=== PATIENT | female | born 1940 | race Caucasian/White ===

== ENCOUNTER 2019-12-10 09:19 | Outpatient (CLI) | payer MEDICARE, OTHER, SELFPAY ==
--- NOTE | 2019-12-10 13:27 | ONC CON_ITS ---
Dr. Sultana New Patient Note Patient: Sae Gambino Unit #: [id number]: 1940 Dicatated By: Wolfgang Sultana M.D.Date of Visit: Dec 10, 2019 Onc MED New Patient/Consult Referring Physician: Dr. LIAT BOLIVAR M.D. Chief Complaint: Breast cancer. 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 This patient has hypertension, hyperlipidemia, GERD, and degenerative arthritis. She has significant anxiety/depression. Her history is also significant for having sustained injuries in a fall about 4 years ago. Since then she has had a great fear of falling again, to the extent that she has remained pretty much sedentary because of it. Somewhere in the range of 4 to 5 months ago she had become aware of a lump in her left breast. Ultrasound of the left breast on 11/11/2019 was BI-RADS 4, suspicious. Findings included a large, irregular, spiculated mass in the upper outer aspect of the left breast measuring 2.6 x 3.4 x 2.7 cm. Nodular densities in the right breast on ultrasound were reported to appear consistent with benign cysts. Core needle biopsy of the mass on 11/20/2019 showed infiltrating ductal carcinoma, probable grade 2. By IHC the tumor cells were noted to be positive for estrogen receptors (90%) and positive for progesterone receptors (80%). By IHC the tumor was negative for overexpression of HER-2/elisabeth (0). She had additional evaluation with chest CT on 11/20/2019, which reportedly showed new mediastinal lymphadenopathy. Further evaluation with PET/CT on 11/28/2019 showed a focus of increased metabolic activity within the medial aspect of the left lobe of the thyroid, maximum SUV 5.1. A focus of increased activity within the lateral aspect of the left breast appeared compatible with the known breast cancer. Small lymph nodes within the mediastinum bilaterally showed activity just above background with maximum SUV 3.5, felt to be consistent with granulomatous disease. Further evaluation with thyroid ultrasound was recommended, but there was no evidence of metastatic breast cancer. She had follow-up with Dr. Bolivar on 12/01/2019 to discuss treatment options. At that time she indicated that she was reluctant to have any further surgery due to fears of undergoing anesthesia. She is seen now in regard to further management of the breast cancer. She complains that she feels exhausted. She has very limited activity, and she is mostly sedentary. Her ECOG score is 3. She had significant weight gain over the past 4 years, though her weight recently has been stable. She has not had fever or hot flashes. She sometimes has sweating associated with activity. She sometimes has sore throat, and she does report having some cough. She says her breathing is not all that good. She has had pain intermittently in the substernal area and she also complains that the area is tender to touch. She has nausea. Her acid reflux is managed adequately with omeprazole. She says her bowels tend to be kind of loose. Bladder function is fine. She has joint pain, she also complains that she has a lot of pain in her neck. She does not complain of headache. She says she has quite a bit of dizziness. She has no numbness/paresthesia or other focal neurologic symptoms. She has been seen by Dr. Deo Douglas in regard to the thyroid findings. Past Medical History: Her medical history includes degenerative arthritis, gastroesophageal reflux disease, hypercholesterolemia, and hypertension. Past Surgical History: Prior surgeries have been limited to bilateral cataract excisions. Medications: 24HR Allergy Relief 1 Tablet (of 180 mg) Oral daily, ALPRAZolam 1 Tablet (of 0.25 mg) Oral daily PRN, Aspirin 1 Tablet (of 325 mg) Oral daily, Atenolol 1 Tablet (of 50 mg) Oral daily, Benazepril HCl 1 Tablet (of 20 mg) Oral daily, Benazepril-hydroCHLOROthiazide 1 Tablet (of 20-25 mg) Oral daily, Glucosamine Sulfate 1 Capsule (of 500 mg) Oral daily, Naproxen 1 Tablet (of 500 mg) Oral daily PRN, Omeprazole 1 Capsule (of 20 mg) Capsule Delayed Release Oral daily, Sertraline HCl 1 Tablet (of 50 mg) Oral daily, Simvastatin 1 Tablet (of 20 mg) Oral daily, Vitamin D Capsule Oral Allergies: ceFAZolin in Sodium Chloride and Valium. Social History: Ms. Gambino is . She had smoked in the past, but not more than 1/2 pack of cigarettes daily. She quit smoking more than 40 years ago. She has had just very rare alcohol use. Family History: Both parents in their 90s, apparently of old age. A sister at age 75. By the patient's description it sounds as though she had acute leukemia. Another sister and 1 brother are still living. There is no history of breast cancer or ovarian cancer in the family. Review Of Symptoms: Constitutional - Her energy is low. She does not do much activity at home. Her appetite is good and her weight is stable. No fever, chills, hot flashes, or night sweats. ECOG score is 3, Eyes - She has had gradual decline in her vision, ENMT - No hearing loss or tinnitus. She has sinus congestion/drainage. No mouth sores. She occasionally has sore throat. No difficulty swallowing, Hematologic/Lymphatic - No abnormal bruising or bleeding, Respiratory - She has shortness of breath. She has a cough. No pleuritic pain or hemoptysis, Cardiovascular - She has pain and tenderness in her chest. No palpitations, Gastrointestinal - She has nausea. No vomiting. She takes omeprazole for acid reflux. No diarrhea or constipation. No blood in the stool or black stools, Genitourinary (F) - No dysuria or hematuria. No urinary frequency. No urgency or incontinence, Musculoskeletal - She has pain in her neck and in her joints, Integumentary - No skin complications, Neurologic - No headache. She gets dizzy quite often. No numbness/paresthesias or other focal neurologic symptoms, Psychiatric - She has a lot of stress and anxiety. She also has depression, but it is being managed with Zoloft. She has trouble getting to sleep at night. Vital Signs: Performed on Dec 10, 2019 10:17: 5, 41.04 (HIGH), 2.01 sq.m, 62.00 in, 97 %, 65 /min, 24 /min, 178/94 mm(hg) (HIGH), 97.7 F (LOW), and 224.4 lbs (HIGH). Physical Examination: Constitutional - She appears to be in reasonably good general health, but she does have limited mobility, Eyes - Sclerae nonicteric. Conjunctivae clear, ENMT - No lesions noted in the oral cavity, Neck - No mass or thyromegaly, Hematologic/Lymphatic - There is a palpable node at the angle of the jaw on the left side, measuring about 1 cm. I do not feel any other cervical or clavicular adenopathy noted, Respiratory - Lungs are clear with good air movement bilaterally, Cardiovascular - Heart rhythm is regular. There is no murmur, gallop, or rub noted. There is no carotid bruit noted, Breasts - The right breast shows no mass. There is an ill-defined area of nodularity in the 2 to 3 o'clock position of the left breast. It measures approximately 2 to 3 cm. There is no axillary adenopathy noted, Abdomen - Soft. Liver and spleen are not enlarged. There is no abdominal mass or ascites noted and there is no inguinal adenopathy, Back/Spine - No spine or CVA tenderness noted, Extremities - No edema. Pedal pulses are palpable bilaterally, Integumentary - No rashes. No suspicious skin lesions noted, Neurologic - No focal neurologic deficits noted. Impression: 1. 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 By clinical evaluation/imaging her disease appears to be stage IB (T2, N0, M0), ER/HI positive and HER-2/elisabeth negative. 2. She underwent core needle biopsy of the left breast on 11/20/2019. 3. She has sedentary lifestyle with very limited activity and ECOG score 3. 4. She had PET/CT evidence of FDG avid left thyroid nodule, currently followed by Dr. Deo Douglas. Her other medical illnesses include: 5. Hypertension. 6. Hyperlipidemia. 7. GERD. 8. Degenerative arthritis. 9. Anxiety/depression. Plan: The findings on the imaging studies and the pathology results were reviewed with the patient and her . We discussed the clinical implications. She has hormone receptor positive infiltrating ductal carcinoma of the left breast. She is aware that the standard treatment would be lumpectomy/radiation or mastectomy, and with either procedure she would also have axillary sentinel lymph node biopsy and adjuvant hormonal therapy. As noted, she is reluctant to undergo any further surgery due to fears of undergoing general anesthesia. Given her age and general medical condition, I think it would be very reasonable to give her the option of having more conservative management for the breast cancer, either with lumpectomy and adjuvant hormonal therapy or with hormonal therapy alone. My preference would be for the former if the lumpectomy procedure can be done under local anesthesia. I will discuss this with Dr. Bolivar. If not, I would be willing to initiate a trial of hormonal therapy with an aromatase inhibitor and just monitor her closely. I reviewed potential side effects with aromatase inhibitor therapy which may include osteoporosis and joint pain, among others. She will need a baseline DEXA scan if that has not been done within the past 2 years, and she will need to be given treatment for bone health as indicated. Signed By: Wolfgang Sultana M.D. <<Signature on File>>
== END 2019-12-10 09:20 | disposition home or self-care (01) ==
LOC: ONCMED 09:31
PROVIDERS: Absent Provider Family Medicine; PCP Family Medicine; Referring Provider Surgery; Visit Provider Internal Medicine Medical Oncology
DX: C50.412 Malignant neoplasm of upper-outer quadrant of left female breast (principal); Z17.0 Estrogen receptor positive status [ER+]; I10 Essential (primary) hypertension; E78.5 Hyperlipidemia, unspecified; K21.9 Gastro-esophageal reflux disease without esophagitis; M19.90 Unspecified osteoarthritis, unspecified site; F41.8 Other specified anxiety disorders; Z79.899 Other long term (current) drug therapy; Z91.81 History of falling; Z87.891 Personal history of nicotine dependence
CPT/HCPCS: 99205

== ENCOUNTER 2020-01-09 07:05 | Outpatient (CLI) | payer MEDICARE, OTHER, SELFPAY ==
[2020-01-09 13:02] LABS: Basophils % 0.3 %; Eosinophils # 0.3 10^3/uL (0.0-0.8); Eosinophils % 4.1 %; Hematocrit 35.6 % (37.0-47.0); Hemoglobin 11.1 g/dL (11.5-15.3); Lymphocytes # 1.3 10^3/uL (0.8-4.8); Lymphocytes % 16.6 %; Mean Corpuscular HGB Conc 31.2 g/dL (30.0-36.0); Mean Corpuscular Hemoglobin 29.4 pg (28.0-34.0); Mean Corpuscular Volume 94.4 fL (81-99); Mean Platelet Volume 11.8 fL (7.4-10.4); Monocytes # 0.6 10^3/uL (0.2-0.9); Neutrophils # 5.6 10^3/uL (1.8-7.7); Neutrophils % 71.1 %; Nucleated Red Blood Cells % 0 %; Platelet Count 292 10^3/cmm (130-400); Red Blood Count 3.77 10^6/uL (4.1-5.3); Red Cell Distribution Width 14.4 % (12.1-15.1); White Blood Count 7.9 10^3/uL (4.0-10.0)
== END 2020-01-09 07:06 | disposition home or self-care (01) ==
LOC: ONCMED 01-12 06:55
PROVIDERS: PCP Family Medicine; Visit Provider Internal Medicine Medical Oncology
DX: C50.412 Malignant neoplasm of upper-outer quadrant of left female breast (principal)
CPT/HCPCS: 85025

== ENCOUNTER 2020-03-16 14:30 | Outpatient (CLI) | payer MEDICARE, OTHER, SELFPAY ==
--- NOTE | 2020-03-16 14:47 | XR_ITS ---
WS: [id number] DEXA (DUAL ENERGY X-RAY ABSORPTIOMETRY) Bone mineral density was performed using a [employer] machine. HISTORY: POSTMENOPAUSAL, BREAST CANCER COMPARISON: None available. Lumbar spine BMD (L1-L4): 1.176 g/cm2 T score: 0.0 Z score: 0.6 Total hip BMD: Left: 0.794 g/cm2. T score: -1.7 Z score: -0.5 Right: 0.814 g/cm2. T score: -1.5 Z score: -0.4 10 year probability of a major osteoporotic fracture is 16%. XR/XR DEXA axial skeleton* [id number] IMPRESSION: OSTEOPENIA based upon the WHO classification for females.
== END 2020-03-16 14:31 | disposition home or self-care (01) ==
LOC: RADWPI 14:36
PROVIDERS: Family Provider Family Medicine; PCP Family Medicine; Visit Provider Internal Medicine Medical Oncology
DX: C50.919 Malignant neoplasm of unspecified site of unspecified female breast (principal); Z78.0 Asymptomatic menopausal state; M85.89 Other specified disorders of bone density and structure, multiple sites
CPT/HCPCS: 77080

== ENCOUNTER 2020-03-17 09:34 | Outpatient (CLI) | payer MEDICARE, OTHER, SELFPAY ==
[2020-03-17 10:55] LABS: Basophils % 0.4 %; Eosinophils # 0.3 10^3/uL (0.0-0.8); Eosinophils % 3.3 %; Hemoglobin 13.8 g/dL (11.5-15.3); Lymphocytes # 1.1 10^3/uL (0.8-4.8); Lymphocytes % 15.1 %; Mean Corpuscular HGB Conc 31.4 g/dL (30.0-36.0); Mean Corpuscular Hemoglobin 28.6 pg (28.0-34.0); Mean Corpuscular Volume 91.3 fL (81-99); Mean Platelet Volume 11.4 fL (7.4-10.4); Monocytes # 0.6 10^3/uL (0.2-0.9); Monocytes % 7.5 %; Neutrophils # 5.5 10^3/uL (1.8-7.7); Neutrophils % 73.3 %; Nucleated Red Blood Cells % 0 %; Platelet Count 254 10^3/cmm (130-400); Red Blood Count 4.82 10^6/uL (4.1-5.3); Red Cell Distribution Width 13.1 % (12.1-15.1); White Blood Count 7.5 10^3/uL (4.0-10.0)
[2020-03-17 11:27] LABS: Alanine Aminotransferase 11 U/L (0-33); Albumin Level 4.4 g/dL (3.5-5.2); Alkaline Phosphatase 74 IU/L (35-105); Anion Gap 15.2 (5-19); Aspartate Amino Transferase 16 U/L (0-32); Blood Urea Nitrogen 10 mg/dL (8-23); Calcium 10.1 mg/dL (8.5-10.5); Carbon Dioxide 29 mmol/L (22-29); Chloride 101 mmol/L (98-107); Globulin 2.6 g/dL (1.3-4.6); Glucose 99 mg/dL (65-115); Osmolality Calculated 288 mOsm/kg (285-295); Potassium 4.2 mmol/L (3.5-5.1); Sodium 141 mmol/L (136-145); Total Bilirubin 0.8 mg/dL (0.15-1.2)
[2020-03-17 13:55] LABS: 25 Hydroxy Vitamin D 29 ng/mL (30-100)
--- NOTE | 2020-03-21 08:59 | ONC FU_ITS ---
Dr. Sultana Patient Follow-Up Note Patient: Sae Gambino Unit #: [id number]: 1940 Dicatated By: Wolfgang Sultana M.D.Date of Visit:Mar 17, 2020 Onc Med Follow-up/Prog Note Chief Complaint: Breast cancer. History of Present Illness: This is an 80 year-old woman with grade 2 infiltrating ductal carcinoma of the left breast, by clinical evaluation stage IB (T2, N0, M0), ER/IL positive and HER-2/elisabeth negative. She had presented with a palpable lump in her left breast. Ultrasound of the left breast on 11/11/2019 was BI-RADS 4, suspicious. Findings included a large, irregular, spiculated mass in the upper outer aspect of the left breast measuring 2.6 x 3.4 x 2.7 cm. Nodular densities in the right breast on ultrasound were reported to appear consistent with benign cysts. Core needle biopsy of the mass on 11/20/2019 showed infiltrating ductal carcinoma, probable grade 2. By IHC the tumor cells were noted to be positive for estrogen receptors (90%) and positive for progesterone receptors (80%). By IHC the tumor was negative for overexpression of HER-2/elisabeth (0). She had additional evaluation with chest CT on 11/20/2019, which reportedly showed new mediastinal lymphadenopathy. Further evaluation with PET/CT on 11/28/2019 showed a focus of increased metabolic activity within the medial aspect of the left lobe of the thyroid, maximum SUV 5.1. A focus of increased activity within the lateral aspect of the left breast appeared compatible with the known breast cancer. Small lymph nodes within the mediastinum bilaterally showed activity just above background with maximum SUV 3.5, felt to be consistent with granulomatous disease. Further evaluation with thyroid ultrasound was recommended, but there was no evidence of metastatic breast cancer. She had follow-up with Dr. Bolivar on 12/01/2019 to discuss treatment options. At that time she indicated that she was reluctant to have any further surgery due to fears of undergoing anesthesia. I had seen her initially on 12/10/2019. After further discussion, she did opt to proceed with a lumpectomy procedure. It was done on 01/02/2020. Pathology showed residual grade 1 invasive ductal carcinoma measuring 3.0 cm in greatest dimension. The margins were uninvolved, with the closest margin measuring 0.6 cm. She had tolerated the procedure well, but her postoperative course was complicated by apparent hemorrhage within the breast. She began adjuvant hormonal therapy with anastrozole 1 mg daily on 01/09/2020. Baseline DEXA scan on 03/16/2020 showed T score -1.7 in the left hip and -1.5 in the right hip, consistent with osteopenia. Her other medical illnesses include hypertension, hyperlipidemia, GERD, and degenerative arthritis. She has significant anxiety/depression. Her history is also significant for having sustained injuries in a fall about 4 years ago. She had smoked in the past, but not more than 1/2 pack of cigarettes daily. She quit smoking more than 40 years ago. She is seen for a follow-up visit. Her main complaint is that she still has a knot in her left breast, and she says it still hurts a lot. Her energy is not good. She has very limited activity, but that is not new. ECOG score is 3. She has good appetite. She has not had fever. She says she does sweat a lot with activity and she sometimes has sweating at night. She says she gets real short of breath. She has nonproductive cough, which also is not new. She does not complain of chest pain. She sometimes has heartburn. She has no other GI or complaints. She says her joints are awful, but that also is chronic. It does not seem to be any worse. She has some tingling in her left hand. She says her nerves are terrible. Medications: 24HR Allergy Relief 1 Tablet (of 180 mg) Oral daily, ALPRAZolam 1 Tablet (of 0.25 mg) Oral daily PRN, Anastrozole 1 Tablet (of 1 mg) Oral daily, Aspirin 1 Tablet (of 325 mg) Oral daily, Atenolol 1 Tablet (of 50 mg) Oral daily, Benazepril HCl 1 Tablet (of 20 mg) Oral daily, Benazepril-hydroCHLOROthiazide 1 Tablet (of 20-25 mg) Oral daily, Glucosamine Sulfate 1 Capsule (of 500 mg) Oral daily, Naproxen 1 Tablet (of 500 mg) Oral daily PRN, Omeprazole 1 Capsule (of 20 mg) Capsule Delayed Release Oral daily, Sertraline HCl 1 Tablet (of 50 mg) Oral daily, Simvastatin 1 Tablet (of 20 mg) Oral daily, Vitamin D Capsule Oral Allergies: ceFAZolin in Sodium Chloride and Valium. Review of Systems: Constitutional - She generally feels pretty lousy. Her energy level is non-exsistant. She is mainly in her chair at home. She is not able to do any physicial activity. Her appetite is good and weight is up a few pounds. No fever. She is having persistant hot flashes with sweating. ECOG score is 3, ENMT - No sinus congestion/drainage. No mouth sores. No sore throat or difficulty swallowing, Hematologic/Lymphatic - No abnormal bruising or bleeding, Respiratory - No shortness of breath. She has a cough. No pleuritic pain or hemoptysis, Cardiovascular - No angina pain. No palpitations, Gastrointestinal - No nausea or vomiting. Her heartburn is adequately managed with Prilosec. No diarrhea or constipation. No blood in the stool or black stools, Genitourinary (F) - No dysuria or hematuria. No urinary frequency. No urgency or incontinence, Musculoskeletal - She has pain from her mastectomy. She also has generalized joint pain, Integumentary - No skin complications, Neurologic - No headache. She sometimes has dizziness. She has some tinglingin her left hand. She has no other focal neurologic symptoms, Psychiatric - She has anxiety/depression. She is not sleeping well at night. Vital Signs: Performed on Mar 17, 2020 09:58 Height - 62.00 in Weight - 228.6 lbs (HIGH) BSA - 2.02 sq.m BMI - 41.81 (HIGH) Temperature - 97.6 F (LOW) Pulse - 63 /min Respiration - 26 /min BP - 158/76 mm(hg) (HIGH) O2 Sat - 95 % (LOW) Pain - 5 Physical Examination: Constitutional - She does not appear acutely ill. She has limited mobility. She has mild alopecia, Eyes - Sclerae nonicteric. Conjunctivae clear, ENMT - No lesions noted in the oral cavity, Hematologic/Lymphatic - No cervical or clavicular adenopathy, Respiratory - Lungs are clear with good air movement bilaterally, Cardiovascular - Heart rhythm is regular. There is no murmur, gallop, or rub noted, Breasts - There is a large area of firmness involving the upper outer left breast. There is discoloration of the overlying skin. There is no axillary adenopathy noted, Abdomen - Soft. Liver and spleen are not enlarged. There is no abdominal mass or ascites noted and there is no inguinal adenopathy, Extremities - No edema, Neurologic - No focal neurologic deficits noted. Lab/Imaging: Test performed on Mar 17, 2020 10:35 Sodium 141 mmol/L Vitamin D (25-Hydroxy), Total 29 ng/mL Potassium 4.2 mmol/L Chloride 101 mmol/L CO2 29 mmol/L Anion Gap 15.2 BUN 10 mg/dL Creatinine 0.6 mg/dL Cr Clearance (Est) 122.4200 mL/min Glucose 99 mg/dL Calcium 10.1 mg/dL Protein, Total 7.0 g/dL Albumin 4.4 g/dL Globulin 2.6 g/dL Bilirubin, Total 0.8 mg/dL ALT (SGPT) 11 U/L AST (SGOT) 16 U/L Alkaline Phosphatase 74 IU/L WBC 7.5 10 3/uL RBC 4.82 10 6/uL HGB 13.8 g/dL HCT 44.0 % MCV 91.3 fL MCH 28.6 pg MCHC 31.4 g/dL RDW 13.1 % Platelet Count 254 10 3/cmm MPV 11.4 fL Neutrophils 5.5 10 3/uL Lymphocytes 1.1 10 3/uL Monocytes 0.6 10 3/uL Eosinophils 0.3 10 3/uL Basophils 0.0 10 3/uL Neutrophil % 73.3 % Lymphocyte % 15.1 % Monocyte % 7.5 % Eosinophil % 3.3 % Basophils % 0.4 % Impression: 1. 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 Her disease is stage IB (T2, N0, M0) by clinical evaluation of the axilla. 2. She underwent core needle biopsy of the left breast on 11/20/2019, and she underwent left breast lumpectomy on 01/02/2020. 3. She began adjuvant hormonal therapy with anastrozole 1 mg daily on 01/09/2020. 4. She had PET/CT evidence of FDG avid left thyroid nodule, followed by Dr. Deo Christiansen. Her other medical illnesses include: 5. Hypertension. 6. Hyperlipidemia. 7. GERD. 8. Degenerative arthritis. 9. Anxiety/depression. 10. Her baseline Dexa scan on 03/16/2020 showed osteopenia, T score -1.7 in the left hip and -1.5 in the right hip. She has been undergoing adjuvant hormonal therapy with anastrozole 1 mg daily. She seems to be tolerating it with acceptable toxicity, though evaluation is somewhat difficult as at baseline she had very marginal performance status and she also has had longstanding generalized joint pain. At this point she is still having significant discomfort in the left breast associated with what appears to be postoperative hematoma within the breast. None of her other symptoms appear to be significantly worse. Plan: She will continue adjuvant hormonal therapy with anastrozole 1 mg daily. I had a discussion with her regarding the results of the DEXA scan, which does show evidence of osteopenia. Options for therapy would include a weekly oral bisphosphonate or Prolia, which is given by subcutaneous injection every 6 months. At least for now she prefers to just monitor it. I will see her again in 6 months, or sooner as needed. Signed By: Wolfgang Sultana M.D. <<Signature on File>>
== END 2020-03-17 09:35 | disposition home or self-care (01) ==
PROVIDERS: PCP Family Medicine; Visit Provider Internal Medicine Medical Oncology
DX: C50.412 Malignant neoplasm of upper-outer quadrant of left female breast (principal); Z17.0 Estrogen receptor positive status [ER+]; K21.9 Gastro-esophageal reflux disease without esophagitis; E78.00 Pure hypercholesterolemia, unspecified; I10 Essential (primary) hypertension; E78.5 Hyperlipidemia, unspecified; F41.9 Anxiety disorder, unspecified; F32.9 Major depressive disorder, single episode, unspecified; M81.0 Age-related osteoporosis without current pathological fracture; E55.9 Vitamin D deficiency, unspecified; Z79.818 Long term (current) use of other agents affecting estrogen receptors and estrogen levels
CPT/HCPCS: 36415; 80053; 82306; 85025; 99214

== ENCOUNTER 2020-09-16 11:53 | Outpatient (CLI) | payer MEDICARE, OTHER, SELFPAY ==
[2020-09-16 13:05] LABS: Basophils % 0.4 %; Eosinophils # 0.2 10^3/uL (0.0-0.8); Eosinophils % 2.7 %; Hematocrit 42.3 % (37.0-47.0); Hemoglobin 13.7 g/dL (11.5-15.3); Lymphocytes # 1.5 10^3/uL (0.8-4.8); Lymphocytes % 18.2 %; Mean Corpuscular HGB Conc 32.4 g/dL (30.0-36.0); Mean Corpuscular Hemoglobin 28.3 pg (28.0-34.0); Mean Corpuscular Volume 87.4 fL (81-99); Mean Platelet Volume 11.4 fL (7.4-10.4); Monocytes # 0.5 10^3/uL (0.2-0.9); Neutrophils # 5.95 10^3/uL (1.8-7.7); Neutrophils % 72.2 %; Nucleated Red Blood Cells % 0 %; Platelet Count 257 10^3/cmm (130-400); Red Blood Count 4.84 10^6/uL (4.1-5.3); Red Cell Distribution Width 13.3 % (12.1-15.1); White Blood Count 8.2 10^3/uL (4.0-10.0)
[2020-09-16 13:42] LABS: 25 Hydroxy Vitamin D 35 ng/mL (30-100); Alanine Aminotransferase 19 U/L (0-33); Albumin Level 4.2 g/dL (3.5-5.2); Alkaline Phosphatase 81 IU/L (35-105); Anion Gap 15.9 (5-19); Aspartate Amino Transferase 22 U/L (0-32); Blood Urea Nitrogen 11 mg/dL (8-23); Calcium 9.4 mg/dL (8.5-10.5); Carbon Dioxide 29 mmol/L (22-29); Chloride 97 mmol/L (98-107); Globulin 2.6 g/dL (1.3-4.6); Glucose 98 mg/dL (65-115); Osmolality Calculated 285 mOsm/kg (285-295); Potassium 3.9 mmol/L (3.5-5.1); Sodium 138 mmol/L (136-145); Total Protein 6.8 g/dL (6.6-8.7)
--- NOTE | 2020-09-19 16:04 | ONC FU_ITS ---
Dr. Sultana Patient Follow-Up Note Patient: Sae Gambino Unit #: [id number]: 1940 Dicatated By: Wolfgang Sultana M.D.Date of Visit:Sep 16, 2020 Onc Med Follow-up/Prog Note Chief Complaint: Breast cancer. 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 She had presented with a palpable lump in her left breast. Ultrasound of the left breast on 11/11/2019 was BI-RADS 4, suspicious. Findings included a large, irregular, spiculated mass in the upper outer aspect of the left breast measuring 2.6 x 3.4 x 2.7 cm. Nodular densities in the right breast on ultrasound were reported to appear consistent with benign cysts. Core needle biopsy of the mass on 11/20/2019 showed infiltrating ductal carcinoma, probable grade 2. By IHC the tumor cells were noted to be positive for estrogen receptors (90%) and positive for progesterone receptors (80%). By IHC the tumor was negative for overexpression of HER-2/elisabeth (0). She had additional evaluation with chest CT on 11/20/2019, which reportedly showed new mediastinal lymphadenopathy. Further evaluation with PET/CT on 11/28/2019 showed a focus of increased metabolic activity within the medial aspect of the left lobe of the thyroid, maximum SUV 5.1. A focus of increased activity within the lateral aspect of the left breast appeared compatible with the known breast cancer. Small lymph nodes within the mediastinum bilaterally showed activity just above background with maximum SUV 3.5, felt to be consistent with granulomatous disease. Further evaluation with thyroid ultrasound was recommended, but there was no evidence of metastatic breast cancer. She had follow-up with Dr. Bolivar on 12/01/2019 to discuss treatment options. At that time she indicated that she was reluctant to have any further surgery due to fears of undergoing anesthesia. I had seen her initially on 12/10/2019. After further discussion, she did opt to proceed with a lumpectomy procedure. It was done on 01/02/2020. Pathology showed residual grade 1 invasive ductal carcinoma measuring 3.0 cm in greatest dimension. The margins were uninvolved, with the closest margin measuring 0.6 cm. She had tolerated the procedure well, but her postoperative course was complicated by apparent hemorrhage within the breast. She began adjuvant hormonal therapy with anastrozole 1 mg daily on 01/09/2020. Baseline DEXA scan on 03/16/2020 showed T score -1.7 in the left hip and -1.5 in the right hip, consistent with osteopenia. She opted not to take treatment for it. Her other medical illnesses include hypertension, hyperlipidemia, GERD, and degenerative arthritis. She has significant anxiety/depression. Her history is also significant for having sustained injuries in a fall about 4 years ago. She had smoked in the past, but not more than 1/2 pack of cigarettes daily. She quit smoking more than 40 years ago. She is seen for a follow-up visit. She has been feeling pretty good generally. She does complain that her energy is not good, and she has very limited activity. ECOG score is 3. She has good appetite. She has not had fever or night sweats. She does exhausted and she has sweating with any activity. Her breathing is not too good, but no worse. She has nonproductive cough, which is chronic. She says she has not had any more chest pain then usual. She has nausea with occasional vomiting, that also has been going on for a long time. Her acid reflux is managed pretty well with omeprazole. Bowel and bladder function have been adequate. She has joint pain, but it actually has improved somewhat and she is currently doing pretty well with it. She has no focal neurologic symptoms. Medications: 24HR Allergy Relief 1 Tablet (of 180 mg) Oral daily, ALPRAZolam 1 Tablet (of 0.25 mg) Oral daily PRN, Anastrozole 1 Tablet (of 1 mg) Oral daily, Aspirin 1 Tablet (of 325 mg) Oral daily, Atenolol 1 Tablet (of 50 mg) Oral daily, Benazepril HCl 1 Tablet (of 20 mg) Oral daily, Benazepril-hydroCHLOROthiazide 1 Tablet (of 20-25 mg) Oral daily, Glucosamine Sulfate 1 Capsule (of 500 mg) Oral daily, Naproxen 1 Tablet (of 500 mg) Oral daily PRN, Omeprazole 1 Capsule (of 20 mg) Capsule Delayed Release Oral daily, Sertraline HCl 1 Tablet (of 50 mg) Oral daily, Simvastatin 1 Tablet (of 20 mg) Oral daily, Vitamin D Capsule Oral Allergies: ceFAZolin in Sodium Chloride and Valium. Review of Systems: Constitutional - Her energy is not good, and she has very limited activity. She has good appetite. She has not had fever. She gets exhausted and she sweats with any activity. ECOG score is 3, ENMT - She has sinus drainage. No mouth sores. She has sore throat, but no difficulty swallowing, Hematologic/Lymphatic - No abnormal bruising or bleeding, Respiratory - Her breathing is not too good. She has nonproductive cough. No pleuritic pain or hemoptysis, Cardiovascular - She says she does not have any more chest pain than usual. No palpitations, Gastrointestinal - She has nausea with occasional vomiting. Her acid reflux is pretty well managed with omeprazole. No diarrhea or constipation. No blood in the stool or black stools, Genitourinary (F) - No dysuria or hematuria. No urinary frequency. No urgency or incontinence, Musculoskeletal - She has joint pain, and actually has improved somewhat, Integumentary - No skin rash, Neurologic - No headache or dizziness. No numbness or tingling. No other focal neurologic symptoms, Psychiatric - She has anxiety/depression. She is on treatment with sertraline. She does not sleep well at night. Vital Signs: Performed on Sep 16, 2020 14:14 Height - 62.00 in Weight - 232.6 lbs (HIGH) BSA - 2.04 sq.m BMI - 42.54 (HIGH) Temperature - 98.2 F (LOW) Pulse - 67 /min Respiration - 24 /min BP - 158/88 mm(hg) (HIGH) O2 Sat - 93 % (LOW) Pain - 0 Physical Examination: Constitutional - She appears somewhat weak generally. She has limited mobility, Eyes - Sclerae nonicteric. Conjunctivae clear, ENMT - No lesions noted in the oral cavity, Hematologic/Lymphatic - No cervical or clavicular adenopathy, Respiratory - Lungs are clear with good air movement bilaterally, Cardiovascular - Heart rhythm is regular. There is no murmur, gallop, or rub noted, Breasts - The area of firmness in the upper outer quadrant left breast is smaller. There is no axillary adenopathy noted, Abdomen - Soft. Liver and spleen are not enlarged. There is no abdominal mass or ascites noted and there is no inguinal adenopathy, Extremities - No edema, Neurologic - No focal neurologic deficits noted. Lab/Imaging: Test performed on Sep 16, 2020 12:07 Sodium 138 mmol/L Vitamin D (25-Hydroxy), Total 35 ng/mL Potassium 3.9 mmol/L Chloride 97 mmol/L CO2 29 mmol/L Anion Gap 15.9 BUN 11 mg/dL Creatinine 0.6 mg/dL Cr Clearance (Est) 124.56 mL/min Glucose 98 mg/dL Osmolality - Calculated 285 mOsm/kg Calcium 9.4 mg/dL Protein, Total 6.8 g/dL Albumin 4.2 g/dL Globulin 2.6 g/dL Bilirubin, Total 1.0 mg/dL ALT (SGPT) 19 U/L AST (SGOT) 22 U/L Alkaline Phosphatase 81 IU/L WBC 8.2 10 3/uL RBC 4.84 10 6/uL HGB 13.7 g/dL HCT 42.3 % MCV 87.4 fL MCH 28.3 pg MCHC 32.4 g/dL RDW 13.3 % Platelet Count 257 10 3/cmm MPV 11.4 fL Neutrophils 5.95 10 3/uL Lymphocytes 1.5 10 3/uL Monocytes 0.5 10 3/uL Eosinophils 0.2 10 3/uL Basophils 0.0 10 3/uL Neutrophil % 72.2 % Lymphocyte % 18.2 % Monocyte % 6.0 % Eosinophil % 2.7 % Basophils % 0.4 % NRBC % 0 % Impression: 1. 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 Her disease is stage IB (T2, N0, M0) by clinical evaluation of the axilla. 2. She underwent core needle biopsy of the left breast on 11/20/2019, and she underwent left breast lumpectomy on 01/02/2020. 3. She began adjuvant hormonal therapy with anastrozole 1 mg daily on 01/09/2020. 4. She had PET/CT evidence of FDG avid left thyroid nodule, followed by Dr. Deo Christiansen. Her other medical illnesses include: 5. Hypertension. 6. Hyperlipidemia. 7. GERD. 8. Degenerative arthritis. 9. Anxiety/depression. 10. Her baseline Dexa scan on 03/16/2020 showed osteopenia, T score -1.7 in the left hip and -1.5 in the right hip. She declined treatment for it. She has been undergoing adjuvant hormonal therapy with anastrozole 1 mg daily. Thus far she seems to be tolerating it well. Her overall clinical status appears stable. Plan: She continues adjuvant hormonal therapy with anastrozole 1 mg daily. I will see her again in 6 months. Signed By: Wolfgang Sultana M.D. <<Signature on File>>
== END 2020-09-16 11:54 | disposition home or self-care (01) ==
LOC: ONCMED 11:58
PROVIDERS: Visit Provider Internal Medicine Medical Oncology
DX: C50.812 Malignant neoplasm of overlapping sites of left female breast (principal); Z17.0 Estrogen receptor positive status [ER+]; I10 Essential (primary) hypertension; E78.5 Hyperlipidemia, unspecified; K21.9 Gastro-esophageal reflux disease without esophagitis; M19.90 Unspecified osteoarthritis, unspecified site; F41.9 Anxiety disorder, unspecified; F32.9 Major depressive disorder, single episode, unspecified; E55.9 Vitamin D deficiency, unspecified; Z78.0 Asymptomatic menopausal state; Z79.818 Long term (current) use of other agents affecting estrogen receptors and estrogen levels
CPT/HCPCS: 36415; 80053; 82306; 85025; 99214

== ENCOUNTER 2020-09-29 10:25 | Outpatient (CLI) | payer MEDICARE, OTHER, SELFPAY ==
--- NOTE | 2020-09-29 10:32 | XR_ITS ---
WS: [id number] Right knee, 3 views, 09/29/2020 Clinical Data: ACUTE PAIN OF RIGHT KNEE Comparison: None. Findings: No fractures or dislocations are seen. There is medial joint compartment narrowing. There is an anter ior superior and a smaller posterior superior patellar spur. There is no bone destruction or erosion. The soft tissues are normal. XR/XR knee RT 3V* [id number] Impression: 1. Medial joint compartment narrowing. 2. Minimal osteoarthritis of the right patella.
== END 2020-09-29 10:26 | disposition home or self-care (01) ==
LOC: RADWPI 10:29
DX: M17.11 Unilateral primary osteoarthritis, right knee (principal)
CPT/HCPCS: 73562

== ENCOUNTER 2021-01-04 08:06 | Outpatient (CLI) | payer MEDICARE, OTHER, SELFPAY ==
--- NOTE | 2021-01-04 08:13 | MM_ITS ---
WS: [id number] DIAGNOSTIC BILATERAL DIGITAL MAMMOGRAM WITH CAD HISTORY: HX OF BREAST CA - LT COMPARISON: 08/04/2020, 11/20/2019, 11/11/2019 and 03/30/2014 TECHNIQUE: Bilateral craniocaudad, mediolateral oblique, and mediolateral views are submitted. Spot c ompression bilateral CC and LEFT MLO. Computer aided detection utilized. Breast composition: There are scattered areas of fibroglandular density. Postsurgical changes are not ed in the upper-outer quadrant of the LEFT breast. Postoperative area of increased density at the zeeshan gical site has decreased slightly in size as compared to 08/04/2020 as expected for postoperative sit e. No new calcifications or distortion. There is overlying skin thickening. Several masses within the RIGHT breast are stable since 11/11/2019. Ultrasound performed of the RIGHT breast on 11/11/2019 demon strated cysts and complex cysts. MM/[place] [id number] IMPRESSION: BI-RADS: 2-Benign FOLLOW UP: 1 Year Follow-up
== END 2021-01-04 08:07 | disposition home or self-care (01) ==
PROVIDERS: Visit Provider Internal Medicine Medical Oncology
DX: Z85.3 Personal history of malignant neoplasm of breast (principal)
CPT/HCPCS: 77066

== ENCOUNTER 2021-04-06 08:27 | Outpatient (CLI) | payer MEDICARE, OTHER, SELFPAY ==
[2021-04-06 09:00] LABS: Basophils % 0.6 %; Eosinophils # 0.3 10^3/uL (0.0-0.8); Eosinophils % 3.8 %; Hematocrit 42.1 % (37.0-47.0); Hemoglobin 13.6 g/dL (11.5-15.3); Lymphocytes # 1.3 10^3/uL (0.8-4.8); Mean Corpuscular HGB Conc 32.3 g/dL (30.0-36.0); Mean Corpuscular Hemoglobin 28.8 pg (28.0-34.0); Mean Corpuscular Volume 89.2 fL (81-99); Mean Platelet Volume 11.4 fL (7.4-10.4); Monocytes # 0.5 10^3/uL (0.2-0.9); Monocytes % 7.2 %; Neutrophils # 4.79 10^3/uL (1.8-7.7); Neutrophils % 69.1 %; Nucleated Red Blood Cells % 0 %; Platelet Count 210 10^3/cmm (130-400); Red Blood Count 4.72 10^6/uL (4.1-5.3); Red Cell Distribution Width 13.4 % (12.1-15.1); White Blood Count 6.9 10^3/uL (4.0-10.0)
[2021-04-06 09:23] LABS: Alanine Aminotransferase 13 U/L (0-33); Albumin Level 3.9 g/dL (3.5-5.2); Alkaline Phosphatase 82 IU/L (35-105); Anion Gap 12.9 (5-19); Aspartate Amino Transferase 18 U/L (0-32); Blood Urea Nitrogen 12 mg/dL (8-23); Calcium 8.9 mg/dL (8.5-10.5); Carbon Dioxide 30 mmol/L (22-29); Chloride 102 mmol/L (98-107); Globulin 2.6 g/dL (1.3-4.6); Glucose 105 mg/dL (65-115); Osmolality Calculated 292 mOsm/kg (285-295); Potassium 3.9 mmol/L (3.5-5.1); Sodium 141 mmol/L (136-145); Total Bilirubin 0.8 mg/dL (0.15-1.2); Total Protein 6.5 g/dL (6.6-8.7)
[2021-04-06 09:35] LABS: 25 Hydroxy Vitamin D 36 ng/mL (30-100)
--- NOTE | 2021-04-10 08:12 | ONC FU_ITS ---
Dr. Sultana Patient Follow-Up Note Patient: Sae Gambino Unit #: [id number]: [id number] Dicatated By: Wolfgang Sultana M.D.Date of Visit:Apr 06, 2021 Onc Med Follow-up/Prog Note Chief Complaint: Breast cancer. History of Present Illness: This is an 81 year-old woman with grade 2 infiltrating ductal carcinoma of the left breast, by clinical evaluation stage IB (T2, N0, M0), ER/NM positive and HER-2/elisabeth negative. She had presented with a palpable lump in her left breast. Ultrasound of the left breast on 11/11/2019 was BI-RADS 4, suspicious. Findings included a large, irregular, spiculated mass in the upper outer aspect of the left breast measuring 2.6 x 3.4 x 2.7 cm. Nodular densities in the right breast on ultrasound were reported to appear consistent with benign cysts. Core needle biopsy of the mass on 11/20/2019 showed infiltrating ductal carcinoma, probable grade 2. By IHC the tumor cells were noted to be positive for estrogen receptors (90%) and positive for progesterone receptors (80%). By IHC the tumor was negative for overexpression of HER-2/elisabeth (0). She had additional evaluation with chest CT on 11/20/2019, which reportedly showed new mediastinal lymphadenopathy. Further evaluation with PET/CT on 11/28/2019 showed a focus of increased metabolic activity within the medial aspect of the left lobe of the thyroid, maximum SUV 5.1. A focus of increased activity within the lateral aspect of the left breast appeared compatible with the known breast cancer. Small lymph nodes within the mediastinum bilaterally showed activity just above background with maximum SUV 3.5, felt to be consistent with granulomatous disease. Further evaluation with thyroid ultrasound was recommended, but there was no evidence of metastatic breast cancer. She had follow-up with Dr. Bolivar on 12/01/2019 to discuss treatment options. At that time she indicated that she was reluctant to have any further surgery due to fears of undergoing anesthesia. I had seen her initially on 12/10/2019. After further discussion, she did opt to proceed with a lumpectomy procedure. It was done on 01/02/2020. Pathology showed residual grade 1 invasive ductal carcinoma measuring 3.0 cm in greatest dimension. The margins were uninvolved, with the closest margin measuring 0.6 cm. She had tolerated the procedure well, but her postoperative course was complicated by apparent hemorrhage within the breast. She began adjuvant hormonal therapy with anastrozole 1 mg daily on 01/09/2020. Baseline DEXA scan on 03/16/2020 showed T score -1.7 in the left hip and -1.5 in the right hip, consistent with osteopenia. She opted not to take treatment for it. Her other medical illnesses include hypertension, hyperlipidemia, GERD, and degenerative arthritis. She has significant anxiety/depression. Her history is also significant for having sustained injuries in a fall about 4 years ago. She had smoked in the past, but not more than 1/2 pack of cigarettes daily. She quit smoking more than 40 years ago. She is seen for a follow-up visit. She has been feeling okay, though she says her energy is 0 to nothing. Her activity remains very limited. ECOG score is 2. She has good appetite. She has not had fever. She does have sweating, especially at night. She has noticed some aching in the area of the lumpectomy in the left breast. She has sinus drainage. She has cough, but she says that has been going on for years. Her breathing is not that great. She sometimes has soreness in the sternal area. She also has some acid reflux. She has not been having nausea. Bowel and bladder function remain adequate. She has chronic pain, mainly in the lower extremities. She does not complain of headache. She has occasional orthostatic dizziness. She has no numbness/paresthesia or other focal neurologic symptoms. Medications: 24HR Allergy Relief 1 Tablet (of 180 mg) Oral daily, ALPRAZolam 1 Tablet (of 0.25 mg) Oral daily PRN, Anastrozole 1 Tablet (of 1 mg) Oral daily, Aspirin 1 Tablet (of 325 mg) Oral daily, Atenolol 1 Tablet (of 50 mg) Oral daily, Benazepril HCl 1 Tablet (of 20 mg) Oral daily, Benazepril-hydroCHLOROthiazide 1 Tablet (of 20-25 mg) Oral daily, Glucosamine Sulfate 1 Capsule (of 500 mg) Oral daily, Naproxen 1 Tablet (of 500 mg) Oral daily PRN, Omeprazole 1 Capsule (of 20 mg) Capsule Delayed Release Oral daily, Sertraline HCl 1 Tablet (of 50 mg) Oral daily, Simvastatin 1 Tablet (of 20 mg) Oral daily, Vitamin D Capsule Oral Allergies: ceFAZolin in Sodium Chloride and Valium. Vital Signs: Performed on Apr 06, 2021 11:23 Height - 62.00 in Weight - 226.6 lbs (LOW) BSA - 2.02 sq.m BMI - 41.45 (HIGH) Temperature - 98.4 F Pulse - 76 /min Respiration - 18 /min BP - 174/80 mm(hg) (HIGH) O2 Sat - 93 % (LOW) Pain - 0 Fatigue - 9 Physical Examination: Constitutional - She appears somewhat weak generally, Eyes - Sclerae nonicteric. Conjunctivae clear, ENMT - No lesions noted in the oral cavity, Hematologic/Lymphatic - No cervical or clavicular adenopathy, Respiratory - Lungs are clear with good air movement bilaterally, Cardiovascular - Heart rhythm is regular. There is no murmur, gallop, or rub noted, Breasts - There is no palpable breast mass. There is no axillary adenopathy noted, Abdomen - Soft. Liver and spleen are not enlarged. There is no abdominal mass or ascites noted and there is no inguinal adenopathy, Extremities - No edema, Neurologic - No focal neurologic deficits noted. Lab/Imaging: Test performed on Apr 06, 2021 08:40 Sodium 141 mmol/L Vitamin D (25-Hydroxy), Total 36 ng/mL Potassium 3.9 mmol/L Chloride 102 mmol/L CO2 30 mmol/L Anion Gap 12.9 BUN 12 mg/dL Creatinine 0.4 mg/dL Cr Clearance (Est) 178.98 mL/min Glucose 105 mg/dL Osmolality - Calculated 292 mOsm/kg Calcium 8.9 mg/dL Protein, Total 6.5 g/dL Albumin 3.9 g/dL Globulin 2.6 g/dL Bilirubin, Total 0.8 mg/dL ALT (SGPT) 13 U/L AST (SGOT) 18 U/L Alkaline Phosphatase 82 IU/L WBC 6.9 10 3/uL RBC 4.72 10 6/uL HGB 13.6 g/dL HCT 42.1 % MCV 89.2 fL MCH 28.8 pg MCHC 32.3 g/dL RDW 13.4 % Platelet Count 210 10 3/cmm MPV 11.4 fL Neutrophils 4.79 10 3/uL Lymphocytes 1.3 10 3/uL Monocytes 0.5 10 3/uL Eosinophils 0.3 10 3/uL Basophils 0.0 10 3/uL Neutrophil % 69.1 % Lymphocyte % 19.0 % Monocyte % 7.2 % Eosinophil % 3.8 % Basophils % 0.6 % NRBC % 0 % Problem List: 1. Grade 2 infiltrating ductal carcinoma of the left breast, ER/NM positive and HER-2/elisabeth negative. Her disease is stage IB (T2, N0, M0) by clinical evaluation of the axilla. 2. She had PET/CT evidence of FDG avid left thyroid nodule, followed by Dr. Deo Christiansen. 3. Hypertension. 4. Hyperlipidemia. 5. GERD. 6. Degenerative arthritis. 7. Anxiety/depression. 8. Her baseline Dexa scan on 03/16/2020 showed osteopenia, T score -1.7 in the left hip and -1.5 in the right hip. She declined treatment for it. 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 Her disease is stage IB (T2, N0, M0) by clinical evaluation of the axilla. She underwent core needle biopsy of the left breast on 11/20/2019, and she underwent left breast lumpectomy on 01/02/2020. She began adjuvant hormonal therapy with anastrozole 1 mg daily on 01/09/2020. During follow-up she has been tolerating the anastrozole with no significant adverse effects. Her overall clinical status remains stable, thus far with no evidence of recurrence of the breast cancer. She continues adjuvant hormonal therapy with anastrozole 1 mg daily. I will see her again in 6 months. Signed By: Wolfgang Sultana M.D. <<Signature on File>>
== END 2021-04-06 08:28 | disposition home or self-care (01) ==
LOC: ONCMED 08:30
PROVIDERS: Visit Provider Internal Medicine Medical Oncology
DX: C50.812 Malignant neoplasm of overlapping sites of left female breast (principal); Z17.0 Estrogen receptor positive status [ER+]; Z79.811 Long term (current) use of aromatase inhibitors; E04.1 Nontoxic single thyroid nodule; I10 Essential (primary) hypertension; E78.5 Hyperlipidemia, unspecified; K21.9 Gastro-esophageal reflux disease without esophagitis; M19.90 Unspecified osteoarthritis, unspecified site; F41.9 Anxiety disorder, unspecified; F32.9 Major depressive disorder, single episode, unspecified; M85.80 Other specified disorders of bone density and structure, unspecified site; Z79.899 Other long term (current) drug therapy
CPT/HCPCS: 36415; 80053; 82306; 85025; 99214

== ENCOUNTER 2021-10-03 12:54 | Outpatient (CLI) | payer MEDICARE, OTHER, SELFPAY ==
[2021-10-03 13:33] LABS: Basophils # 0.1 10^3/uL (0.0-0.1); Basophils % 0.6 %; Eosinophils # 0.3 10^3/uL (0.0-0.8); Eosinophils % 3.5 %; Hematocrit 43.5 % (37.0-47.0); Hemoglobin 14.4 g/dL (11.5-15.3); Lymphocytes # 1.5 10^3/uL (0.8-4.8); Lymphocytes % 18.8 %; Mean Corpuscular HGB Conc 33.1 g/dL (30.0-36.0); Mean Corpuscular Hemoglobin 29.6 pg (28.0-34.0); Mean Corpuscular Volume 89.5 fl (81-99); Mean Platelet Volume 11.9 fL (7.4-10.4); Monocytes # 0.6 10^3/uL (0.2-0.9); Monocytes % 7.2 %; Neutrophils % 69.5 %; Nucleated Red Blood Cells % 0 %; Platelet Count 217 10^3/cmm (130-400); Red Blood Count 4.86 10^6/uL (4.1-5.3); Red Cell Distribution Width 13.5 % (12.1-15.1); White Blood Count 8.1 10^3/uL (4.0-10.0)
[2021-10-03 14:05] LABS: Alanine Aminotransferase 19 U/L (0-33); Albumin Level 4.2 g/dL (3.5-5.2); Alkaline Phosphatase 88 IU/L (35-105); Anion Gap 18.4 (5-19); Aspartate Amino Transferase 27 U/L (0-32); Blood Urea Nitrogen 9 mg/dL (8-23); Calcium 8.6 mg/dL (8.5-10.5); Carbon Dioxide 24 mmol/L (22-29); Chloride 99 mmol/L (98-107); Globulin 2.9 g/dL (1.3-4.6); Glucose 112 mg/dL (65-115); Osmolality Calculated 285 mOsm/kg (285-295); Potassium 3.4 mmol/L (3.5-5.1); Sodium 138 mmol/L (136-145); Total Protein 7.1 g/dL (6.6-8.7)
== END 2021-10-03 12:55 | disposition home or self-care (01) ==
LOC: ONCMED 12:59
PROVIDERS: PCP Nurse Practitioner Family; Visit Provider Internal Medicine Medical Oncology
DX: Z85.3 Personal history of malignant neoplasm of breast (principal)
CPT/HCPCS: 36415; 80053; 85025

== ENCOUNTER 2021-10-05 06:13 | Outpatient (CLI) | payer MEDICARE, OTHER, SELFPAY ==
--- NOTE | 2021-10-07 11:37 | ONC FU_ITS ---
Dr. Sultana Patient Follow-Up Note Patient: Sae Gambino Unit #: [id number]: 1940 Dicatated By: Wolfgang Sultana M.D.Date of Visit:Oct 05, 2021 Onc Med Follow-up/Prog Note Chief Complaint: Breast cancer. 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 She had presented with a palpable lump in her left breast. Ultrasound of the left breast on 11/11/2019 was BI-RADS 4, suspicious. Findings included a large, irregular, spiculated mass in the upper outer aspect of the left breast measuring 2.6 x 3.4 x 2.7 cm. Nodular densities in the right breast on ultrasound were reported to appear consistent with benign cysts. Core needle biopsy of the mass on 11/20/2019 showed infiltrating ductal carcinoma, probable grade 2. By IHC the tumor cells were noted to be positive for estrogen receptors (90%) and positive for progesterone receptors (80%). By IHC the tumor was negative for overexpression of HER-2/elisabeth (0). She had additional evaluation with chest CT on 11/20/2019, which reportedly showed new mediastinal lymphadenopathy. Further evaluation with PET/CT on 11/28/2019 showed a focus of increased metabolic activity within the medial aspect of the left lobe of the thyroid, maximum SUV 5.1. A focus of increased activity within the lateral aspect of the left breast appeared compatible with the known breast cancer. Small lymph nodes within the mediastinum bilaterally showed activity just above background with maximum SUV 3.5, felt to be consistent with granulomatous disease. Further evaluation with thyroid ultrasound was recommended, but there was no evidence of metastatic breast cancer. She had follow-up with Dr. Bolivar on 12/01/2019 to discuss treatment options. At that time she indicated that she was reluctant to have any further surgery due to fears of undergoing anesthesia. I had seen her initially on 12/10/2019. After further discussion, she did opt to proceed with a lumpectomy procedure. It was done on 01/02/2020. Pathology showed residual grade 1 invasive ductal carcinoma measuring 3.0 cm in greatest dimension. The margins were uninvolved, with the closest margin measuring 0.6 cm. She had tolerated the procedure well, but her postoperative course was complicated by apparent hemorrhage within the breast. She then began adjuvant hormonal therapy with anastrozole 1 mg daily on 01/09/2020. Baseline DEXA scan on 03/16/2020 showed T score -1.7 in the left hip and -1.5 in the right hip, consistent with osteopenia. She opted not to take treatment for it. Her other medical illnesses include hypertension, hyperlipidemia, GERD, and degenerative arthritis. She has significant anxiety/depression. Her history is also significant for having sustained injuries in a fall about 4 years ago. She had smoked in the past, but not more than 1/2 pack of cigarettes daily. She quit smoking more than 40 years ago. She is seen for a follow-up visit. She has been feeling okay. She does complain that she has no energy and she has not had much activity, but that is unchanged. She is able to do light work. Her ECOG score is 1. She has good appetite. She has not had fever or hot flashes, but she does report having sweating with any activity. She has some sinus drainage and she does have some cough, though she says it is better now than it was. Her breathing is terrible, and that seems to be getting gradually worse. She sometimes has chest pain. She has had nausea at times. She has no other GI or complaints. She has pain in her right knee, which is chronic. She has no other joint or bone pain. She does not complain of headache. She sometimes has dizziness. She has no numbness/paresthesia or other focal neurologic symptoms. Medications: 24HR Allergy Relief 1 Tablet (of 180 mg) Oral daily, Albuterol Sulfate Aerosol Powder, Breath Activated Inhalation PRN, ALPRAZolam 1 Tablet (of 0.25 mg) Oral daily PRN, Anastrozole 1 Tablet (of 1 mg) Oral daily, Aspirin 1 Tablet (of 325 mg) Oral daily, Atenolol 1 Tablet (of 50 mg) Oral daily, Benazepril HCl 1 Tablet (of 20 mg) Oral daily, Benazepril-hydroCHLOROthiazide 1 Tablet (of 20-25 mg) Oral daily, Glucosamine Sulfate 1 Capsule (of 500 mg) Oral daily, Naproxen 1 Tablet (of 500 mg) Oral daily PRN, Nitroglycerin Tablet, sublingual Sublingual PRN, Nitroglycerin Patch 24 Hr Transdermal, Omeprazole 1 Capsule (of 20 mg) Capsule Delayed Release Oral daily, Sertraline HCl 1 Tablet (of 50 mg) Oral daily, Simvastatin 1 Tablet (of 20 mg) Oral daily, Vitamin D Capsule Oral Allergies: ceFAZolin in Sodium Chloride and Valium. Vital Signs: Performed on Oct 05, 2021 15:31 Height - 62.00 in Weight - 228.2 lbs (HIGH) BSA - 2.02 sq.m BMI - 41.74 (HIGH) Temperature - 98.1 F (LOW) Pulse - 72 /min Respiration - 18 /min BP - 184/83 mm(hg) (HIGH) O2 Sat - 92 % (LOW) Pain - 0 Fatigue - 8 Physical Examination: Constitutional - She has somewhat limited mobility, but she otherwise looks good generally, Eyes - Sclerae nonicteric. Conjunctivae clear, ENMT - No lesions noted in the oral cavity, Hematologic/Lymphatic - No cervical or clavicular adenopathy, Respiratory - Lungs are clear with good air movement bilaterally, Cardiovascular - Heart rhythm is regular. There is no murmur, gallop, or rub noted, Breasts - There is a small nodule palpable at the medial aspect of her lumpectomy incision. It appears consistent with scar tissue. There is no other breast mass noted. There is no axillary adenopathy, Abdomen - Soft. Liver and spleen are not enlarged. There is no abdominal mass or ascites noted and there is no inguinal adenopathy, Extremities - No edema, Neurologic - No focal neurologic deficits noted. Lab/Imaging: CBC shows hemoglobin 14.4 g, white blood cell count 8100, and platelet count 217,000. Comprehensive metabolic profile is unremarkable. Problem List: 1. Grade 2 infiltrating ductal carcinoma of the left breast, ER/NH positive and HER-2/elisabeth negative. Her disease is stage IB (T2, N0, M0) by clinical evaluation of the axilla. 2. She had PET/CT evidence of FDG avid left thyroid nodule, followed by Dr. Deo Christiansen. 3. Hypertension. 4. Hyperlipidemia. 5. GERD. 6. Degenerative arthritis. 7. Anxiety/depression. 8. Her baseline Dexa scan on 03/16/2020 showed osteopenia, T score -1.7 in the left hip and -1.5 in the right hip. She declined treatment for it. 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 Her disease is stage IB (T2, N0, M0) by clinical evaluation of the axilla. She underwent core needle biopsy of the left breast on 11/20/2019, and she underwent left breast lumpectomy on 01/02/2020. She began adjuvant hormonal therapy with anastrozole 1 mg daily on 01/09/2020. During follow-up she has had ongoing complaints with fatigue and shortness of breath. She has limited activity tolerance, but her overall clinical status has remained stable. She does report having sweating with activity, which I suspect is related to the anastrozole. She seems to have no other adverse effects with it, and thus far there has been no evidence of recurrence/progression of the breast cancer. She continues adjuvant hormonal therapy with anastrozole 1 mg daily. I will see her again in 6 months. Signed By: Wolfgang Sultana M.D. <<Signature on File>>
== END 2021-10-05 06:14 | disposition home or self-care (01) ==
LOC: ONCMED 06:14
PROVIDERS: PCP Nurse Practitioner Family; Visit Provider Internal Medicine Medical Oncology
DX: C50.912 Malignant neoplasm of unspecified site of left female breast (principal); Z17.0 Estrogen receptor positive status [ER+]; E04.1 Nontoxic single thyroid nodule; Z79.811 Long term (current) use of aromatase inhibitors; I10 Essential (primary) hypertension; E78.5 Hyperlipidemia, unspecified; K21.9 Gastro-esophageal reflux disease without esophagitis; M19.90 Unspecified osteoarthritis, unspecified site; F41.8 Other specified anxiety disorders; M85.88 Other specified disorders of bone density and structure, other site
CPT/HCPCS: 99214

== ENCOUNTER 2022-04-05 11:03 | Outpatient (CLI) | payer MEDICARE, OTHER, SELFPAY ==
--- NOTE | 2022-04-05 11:13 | MM_ITS ---
WS: [id number] DIAGNOSTIC BILATERAL DIGITAL BREAST TOMOSYNTHESIS MAMMOGRAPHY WITH CAD HISTORY: HX OF BREAST CANCER LT COMPARISON: 01/04/2021, 08/04/2020 and 11/20/2021 TECHNIQUE: Bilateral craniocaudad, mediolateral oblique, and mediolateral views are submitted with to mosynthesis and SM. Computer aided detection utilized. Breast composition: There are scattered areas of fibroglandular density. Volume loss and mild skin th ickening involving the upper outer quadrant of the LEFT breast at the surgical site. Previously descr ibed postoperative seroma at the surgical site has significantly improved. There is mild persistent s oft tissue stranding. No mass. Well-circumscribed 10 mm mass in the posterior medial RIGHT breast is stable. Vascular calcifications in each breast. No additional interval changes. MM/[place] [id number] IMPRESSION: BI-RADS: 2-Benign FOLLOW UP: 1 Year Follow-up
== END 2022-04-05 11:04 | disposition home or self-care (01) ==
LOC: RAD 11:06
PROVIDERS: PCP Nurse Practitioner Family; Visit Provider Internal Medicine Medical Oncology
DX: Z85.3 Personal history of malignant neoplasm of breast (principal)
CPT/HCPCS: 77062

== ENCOUNTER 2022-05-08 15:45 | Oncology outpatient (recurring) (ONCR) | payer MEDICARE, OTHER, SELFPAY | END 2022-05-08 23:59 | disposition home or self-care (01) | PROVIDERS: PCP Nurse Practitioner Family; Visit Provider Internal Medicine Medical Oncology | DX: C50.812 Malignant neoplasm of overlapping sites of left female breast (principal); Z17.0 Estrogen receptor positive status [ER+]; R53.83 Other fatigue; R06.02 Shortness of breath; Z79.818 Long term (current) use of other agents affecting estrogen receptors and estrogen levels | CPT/HCPCS: 99214 ==

== ENCOUNTER 2022-07-12 12:25 | Oncology outpatient (recurring) (ONCR) | payer MEDICARE, OTHER, SELFPAY ==
[2022-07-12 12:51] LABS: Basophils % 0.4 %; Eosinophils # 0.2 10^3/uL (0.0-0.8); Eosinophils % 3.3 %; Hematocrit 45.4 % (37.0-47.0); Hemoglobin 14.9 g/dL (11.5-15.3); Lymphocytes # 1.5 10^3/uL (0.8-4.8); Lymphocytes % 20.6 %; Mean Corpuscular HGB Conc 32.8 g/dL (30.0-36.0); Mean Corpuscular Hemoglobin 28.8 pg (28.0-34.0); Mean Corpuscular Volume 87.6 fl (81-99); Mean Platelet Volume 11.9 fL (7.4-10.4); Monocytes # 0.6 10^3/uL (0.2-0.9); Neutrophils # 4.86 10^3/uL (1.8-7.7); Neutrophils % 67.4 %; Nucleated Red Blood Cells % 0 %; Platelet Count 223 10^3/cmm (130-400); Red Blood Count 5.18 10^6/uL (4.1-5.3); Red Cell Distribution Width 13.7 % (12.1-15.1); White Blood Count 7.2 10^3/uL (4.0-10.0)
[2022-07-12 13:26] LABS: Alanine Aminotransferase 23 U/L (0-33); Alkaline Phosphatase 113 U/L (35-105); Anion Gap 14.9 (5-19); Aspartate Amino Transferase 46 U/L (0-32); Blood Urea Nitrogen 12 mg/dL (8-23); Calcium 9.5 mg/dL (8.5-10.5); Carbon Dioxide 27 mmol/L (22-29); Chloride 100 mmol/L (98-107); Globulin 2.9 g/dL (1.3-4.6); Glucose 103 mg/dL (65-115); Osmolality Calculated 286 mOsm/kg (285-295); Potassium 3.9 mmol/L (3.5-5.1); Sodium 138 mmol/L (136-145); Total Protein 6.9 g/dL (6.6-8.7)
[2022-07-12 14:11] LABS: 25 Hydroxy Vitamin D > 100 ng/mL (30-100)
== END 2022-07-14 23:59 | disposition home or self-care (01) ==
LOC: ONCMED 12:26
PROVIDERS: PCP Nurse Practitioner Family; Visit Provider Internal Medicine Medical Oncology
DX: C50.412 Malignant neoplasm of upper-outer quadrant of left female breast (principal); M81.0 Age-related osteoporosis without current pathological fracture; Z17.0 Estrogen receptor positive status [ER+]; Z79.811 Long term (current) use of aromatase inhibitors; Z79.899 Other long term (current) drug therapy; R61 Generalized hyperhidrosis
CPT/HCPCS: 36415; 80053; 82306; 85025; 99214

== ENCOUNTER 2022-10-12 12:04 | Emergency (ER) | payer MEDICARE, OTHER, SELFPAY ==
[2022-10-12 13:07] VITALS: BP 206/83; PULSE 61; RESP 17; TEMP 36.4; O2SAT 96; BMI 42.0
--- NOTE | 2022-10-12 13:17 | USCV_ITS ---
Sae Gambino Age: 82 Gender: F : 1940 Exam Date: 10/12/2022 13:46 Ordering Phys: Fede Serna DO Technologist: Fredy Perez Exam Location: [facility] – [place]_ Indication: rt leg pain and swelling HISTORY: Lower extremity pain. PROCEDURES: Venous duplex imaging was performed in only the right lower extremity. The following venous structures were evaluated: common femoral vein, profunda vein, proximal portion of the greater saphenous vein, superficial femoral vein, and the popliteal vein. In addition, the posterior tibial and peroneal trunk were evaluated. FINDINGS: Normal 2-D Doppler and augmentation and compressibility throughout the lower extremity venous structures. Additional imaging through the proximal calf veins also reveals no thrombus. Limited evaluation of the greater saphenous vein is patent with no thrombus.. CONCLUSIONS No evidence of right lower extremity DVT. Ranjan Kwan MD (Electronically Signed) Final Date: 12 October 2022 15:29 S
--- NOTE | 2022-10-12 13:17 | XR_ITS ---
WS: [id number] Right foot, 2 views, 10/12/2022 Clinical Data: pain Comparison: None. Findings: No fractures or dislocations are seen. No bone destruction or erosion is noted. There is a bunion at the head of the right first metatarsal. There is a plantar spur and an Achilles spur. XR/XR foot RT 2V [id number] Impression: Bunion at the head of the right first metatarsal.
--- NOTE | 2022-10-12 16:44 | W.ED.EXTPRO ---
HPI - Extremity Problem General: Chief complaint: Extremity Problem,Nontraumatic Stated complaint: C Scan due to blood issues on the right leg. Time Seen by Provider: 10/12/22 16:42 Source: patient Mode of arrival: ambulatory History of Present Illness: 82-year-old female presents emergency room complaining of swelling and discomfort in her right lower extremity is concerned she may have a blood clot. Incidentally after she arrived her blood pressure markedly elevated she admitted she is chronically has blood pressure problems she denies any shortness of breath denies any chest pain. Discomfort and swelling in the right lower leg with no report of chest pain or shortness of breath. MD Complaint: extremity pain and extremity swelling Onset (ago): day(s) Pain Consistency: constant Location: right and lower extremity Quality: aching Relieving factors: nothing Exacerbating factors: weight bearing, walking and palpation Associated symptoms: Deny arthralgias, chest pain, fever(s), myalgias, rash or short of breath Review of Systems Const: Denies: fever(s) or chills ENMT: Denies: throat pain, ear or mastoid pain, nasal discharge or nasal congestion Card: Reports: edema; Denies: chest pain, palpitations, irregular heart rhythm or dyspnea on exertion Resp: Denies: dyspnea, productive cough or non-productive cough GI: Denies: abdominal pain, nausea, vomiting, hematemesis, coffee ground emesis, diarrhea, constipation, bloating, hematochezia or melena : Denies: flank pain, difficulty voiding, dysuria, urinary frequency or urinary urgency Skin/Breast: Denies: rash or pruritus PFSH ED PFSH: Medical History Breast cancer Degenerative arthritis Gastroesophageal reflux disease Hypercholesterolemia Hypertension Osteopenia Surgical History History of cataract extraction Bilateral History of knee surgery (2021) Left meniscus repair History of lumpectomy of left breast (01/02/20) Family History Father Cancer bladder Other Hyperlipidemia Hypertension Denies family history of Diabetes CAD (coronary artery disease) Clotting disorder Dementia Psychiatric illness Chronic kidney disease (CKD) Suicide Anesthesia complication Bleeding disorder Lung disease Stroke Social History Smoking and tobacco status: former smoker (smoked x 20 years) Alcohol intake: never Physical Exam Const: COMMON NORMALS: no acute distress GENERAL APPEARANCE: cooperative and comfortable ORIENTATION/CONSCIOUSNESS: Yes awake, Yes oriented to person, Yes oriented to place and Yes oriented to time HENMT: COMMON NORMALS: normocephalic, atraumatic and hearing grossly normal bilaterally HEAD & SCALP: normocephalic and atraumatic Lymph: LYMPHATIC: no lymphadenopathy noted and no lymphedema noted Resp: COMMON NORMALS: normal respiratory effort, No retractions, No use of accessory muscles and clear to auscultation bilaterally AUSCULTATION: clear to auscultation bilaterally Cardio: COMMON NORMALS: regular rate, regular rhythm and No murmurs present (Cardio) RATE: regular rate RHYTHM: regular rhythm GI: COMMON NORMALS: Soft to palpation and No hepatosplenomegaly present AUSCULTATION: Yes normoactive bowel sounds PALPATION: Yes Soft to palpation, No Tenderness to palpation present (GI), No Guarding due to palpation present (GI) and Yes No hepatosplenomegaly present Extremity: COMMON NORMALS: capillary refill normal OTHER: Trace edema bilateral lower extremities Neuro: SENSORIUM/ORIENTATION: Yes oriented to person, Yes oriented to place and Yes oriented to time Skin: COMMON NORMALS: no rashes or lesions noted GENERAL SKIN EXAM: no rashes or lesions noted Course Vital Signs: Vital signs: Vital Signs Temperature 97.5 F L 10/12/22 13:07 Pulse Rate 61 10/12/22 13:07 Respiratory Rate 17 10/12/22 13:07 Blood Pressure 150/75 10/12/22 18:14 Pulse Oximetry 98 10/12/22 18:14 Oxygen Delivery Me thod 10/12/22 18:14 MDM - Extremity (Nontraumatic) Medical Decision Making Venous duplex negative. Blood pressure elevated she was given 20 of IV hydralazine and 10 of p.o. amlodipine blood pressure improved discharge home on amlodipine 5 mg daily follow-up with primary care within the next week to reevaluate blood pressure. Medical Records I reviewed the patient's medical records. Lab Data I reviewed the patient's lab results. 10/12/22 17:00 10/12/22 17:00 Radiology Impressions Foot X-Ray 10/12/22 13:17 Impression: Bunion at the head of the right first metatarsal. Chest X-Ray 10/12/22 16:52 IMPRESSION: No acute findings. Laboratory Results WBC 7.8 10^3/uL (4.0-10.0) 10/12/22 17:00 RBC 5.25 10^6/uL (4.1-5.3) 10/12/22 17:00 Hgb 15.0 g/dL (11.5-15.3) 10/12/22 17:00 Hct 46.8 % (37.0-47.0) 10/12/22 17:00 MCV 89.1 fl (81-99) 10/12/22 17:00 MCH 28.6 pg (28.0-34.0) 10/12/22 17:00 MCHC 32.1 g/dL (30.0-36.0) 10/12/22 17:00 RDW 13.5 % (12.1-15.1) 10/12/22 17:00 Plt Count 196 10^3/cmm (130-400) 10/12/22 17:00 MPV 11.3 fL (7.4-10.4) H 10/12/22 17:00 Neut % (Auto) 70.0 % 10/12/22 17:00 Lymph % (Auto) 19.9 % 10/12/22 17:00 [place] % (Auto) 6.4 % 10/12/22 17:00 Eos % (Auto) 3.2 % 10/12/22 17:00 Baso % (Auto) 0.4 % 10/12/22 17:00 Neut # (Auto) 5.47 10^3/uL (1.8-7.7) 10/12/22 17:00 Lymph # (Auto) 1.6 10^3/uL (0.8-4.8) 10/12/22 17:00 [place] # (Auto) 0.5 10^3/uL (0.2-0.9) 10/12/22 17:00 Eos # (Auto) 0.3 10^3/uL (0.0-0.8) 10/12/22 17:00 Baso # (Auto) 0.0 10^3/uL (0.0-0.1) 10/12/22 17:00 Nucleated RBC % (auto) 0 % 10/12/22 17:00 Nucleated RBCs # 0.0 /100WBC 10/12/22 17:00 Sodium 137 mmol/L (136-145) 10/12/22 17:00 Potassium 3.5 mmol/L (3.5-5.1) 10/12/22 17:00 Chloride 97 mmol/L (98-107) L 10/12/22 17:00 Carbon Dioxide 30 mmol/L (22-29) H 10/12/22 17:00 Anion Gap 13.5 (5-19) 10/12/22 17:00 BUN 9 mg/dL (8-23) 10/12/22 17:00 Creatinine 0.5 mg/dL (0.5-0.9) 10/12/22 17:00 GFR Calculation Not Reportable 10/12/22 17:00 Glucose 90 mg/dL (65-115) 10/12/22 17:00 Calculated Osmolality 282 mOsm/kg (285-295) L 10/12/22 17:00 Calcium 10.0 mg/dL (8.5-10.5) 10/12/22 17:00 Total Bilirubin 1.2 mg/dL (0.15-1.2) 10/12/22 17:00 AST 37 U/L (0-32) H 10/12/22 17:00 ALT 16 U/L (0-33) 10/12/22 17:00 Alkaline Phosphatase 115 U/L (35-105) H 10/12/22 17:00 Total Protein 7.5 g/dL (6.6-8.7) 10/12/22 17:00 Albumin 4.3 g/dL (3.5-5.2) 10/12/22 17:00 Globulin 3.2 g/dL (1.3-4.6) 10/12/22 17:00 Discharge Plan Discharge Patient Disposition: Home Clinical Impression: HTN (hypertension), Lower extremity edema Condition: Stable Prescriptions: New amlodipine 5 mg tablet 5 mg PO DAILY Qty: 30 0RF No Action benazepril-hydrochlorothiazide 20-25 mg tablet 1 tab PO DAILY ergocalciferol (vitamin D2) 50 mcg (2,000 unit) capsule 50 mcg PO DAILY cetirizine 10 mg tablet 10 mg PO DAILY calcium acetate 667 mg tablet See Rx Instructions PO DAILY Rx Instructions: Strength unknown - 1 tablet orally daily; aspirin 325 mg tablet 325 mg PO DAILY atenolol 50 mg tablet 50 mg PO DAILY benazepril 20 mg tablet 20 mg PO DAILY naproxen 500 mg tablet 500 mg PO BID PRN (Reason: pain) omeprazole magnesium 20 mg capsule,delayed release(DR/EC) 20 mg PO DAILY sertraline 50 mg tablet 50 mg PO DAILY simvastatin 20 mg tablet 20 mg PO DAILY anastrozole [Arimidex] 1 mg tablet 1 mg PO DAILY Qty: 90 4RF alprazolam 0.25 mg tablet 0.5 mg PO DAILY PRN (Reason: anxiety) Discharge Orders: Discharge ED (Routine); Ordered 10/12/22 Ordered By: Fede Serna Referrals: Beatrice Weston NP [Primary Care Provider] - Discharge Diet: Usual diet Discharge Activity: Resume usual activity Patient Instructions: Opioid Safety, Pain Management Activity Restrictions/Additional Instructions: You were seen today for leg pain. Venous duplex was negative. Her blood pressure is markedly elevated you are given medicines to lower your blood pressure it improved we will discharge you home recommend that you take amlodipine 5 mg daily in addition to the other medications you are taking follow-up with your primary care doctor within the next 7 to 10 days. Coding Level of Care Code ED [employer] Developer for Alexis Bustos
--- NOTE | 2022-10-12 16:52 | XRR_ITS ---
PROCEDURE INFORMATION: Exam: XR Chest Exam date and time: 10/12/2022 4:58 PM Age: 82 years old Clinical indication: Cough and dyspnea; Patient HX: Swollen RT leg; Additional info: Dyspnea/cough TECHNIQUE: Imaging protocol: Radiologic exam of the chest. Views: 1 view. COMPARISON: No relevant prior studies available. FINDINGS: Lungs: Unremarkable. No consolidation. Pleural spaces: Unremarkable. No pleural effusion. No pneumothorax. Heart/Mediastinum: Unremarkable. No cardiomegaly. Bones/joints: Unremarkable. XR/XR chest 1V portable [id number] IMPRESSION: No acute findings.
[2022-10-12 17:07] LABS: Basophils % 0.4 %; Eosinophils # 0.3 10^3/uL (0.0-0.8); Eosinophils % 3.2 %; Hematocrit 46.8 % (37.0-47.0); Lymphocytes # 1.6 10^3/uL (0.8-4.8); Lymphocytes % 19.9 %; Mean Corpuscular HGB Conc 32.1 g/dL (30.0-36.0); Mean Corpuscular Hemoglobin 28.6 pg (28.0-34.0); Mean Corpuscular Volume 89.1 fl (81-99); Mean Platelet Volume 11.3 fL (7.4-10.4); Monocytes # 0.5 10^3/uL (0.2-0.9); Monocytes % 6.4 %; Neutrophils # 5.47 10^3/uL (1.8-7.7); Nucleated Red Blood Cells % 0 %; Platelet Count 196 10^3/cmm (130-400); Red Blood Count 5.25 10^6/uL (4.1-5.3); Red Cell Distribution Width 13.5 % (12.1-15.1); White Blood Count 7.8 10^3/uL (4.0-10.0)
[2022-10-12] MEDS: amlodipine 10 mg Tablet PO (17:39)
[2022-10-12] MEDS: hyDRALAzine 20 mg/mL INJ 1 mL IVP (17:39)
[2022-10-12 17:46] LABS: Alanine Aminotransferase 16 U/L (0-33); Albumin Level 4.3 g/dL (3.5-5.2); Alkaline Phosphatase 115 U/L (35-105); Anion Gap 13.5 (5-19); Aspartate Amino Transferase 37 U/L (0-32); Blood Urea Nitrogen 9 mg/dL (8-23); Carbon Dioxide 30 mmol/L (22-29); Chloride 97 mmol/L (98-107); Globulin 3.2 g/dL (1.3-4.6); Glucose 90 mg/dL (65-115); Osmolality Calculated 282 mOsm/kg (285-295); Potassium 3.5 mmol/L (3.5-5.1); Sodium 137 mmol/L (136-145); Total Bilirubin 1.2 mg/dL (0.15-1.2); Total Protein 7.5 g/dL (6.6-8.7)
[2022-10-12 18:14] VITALS: BP 150/75; O2SAT 98
== END 2022-10-12 18:50 | disposition home or self-care (01) ==
PROVIDERS: Emergency Provider Family Medicine; PCP Nurse Practitioner Family
DX: R60.0 Localized edema (principal); I10 Essential (primary) hypertension; Z79.82 Long term (current) use of aspirin; Z87.891 Personal history of nicotine dependence; Z85.3 Personal history of malignant neoplasm of breast
CPT/HCPCS: 71045; 73620; 80053; 85025; 93971; 96374; 99285; J0360

== ENCOUNTER 2023-01-02 14:15 | Oncology outpatient (recurring) (ONCR) | payer MEDICARE, OTHER, SELFPAY | END 2023-01-12 23:59 | disposition home or self-care (01) | LOC: ONCMED 14:16 | PROVIDERS: PCP Family Medicine Adult Medicine; Visit Provider Internal Medicine Medical Oncology | DX: Z08 Encounter for follow-up examination after completed treatment for malignant neoplasm (principal); Z85.3 Personal history of malignant neoplasm of breast; F32.9 Major depressive disorder, single episode, unspecified; M85.88 Other specified disorders of bone density and structure, other site; R07.89 Other chest pain; Z79.899 Other long term (current) drug therapy; Z92.23 Personal history of estrogen therapy; Z87.891 Personal history of nicotine dependence | CPT/HCPCS: 99213; 99214 ==

== ENCOUNTER → 2023-03-13 12:34 | Outpatient (BNVA) | payer MEDICARE, OTHER, SELFPAY | PROVIDERS: PCP Family Medicine Adult Medicine; Visit Provider Internal Medicine | DX: R07.9 Chest pain, unspecified (principal); R06.02 Shortness of breath; I44.0 Atrioventricular block, first degree; I10 Essential (primary) hypertension; E78.5 Hyperlipidemia, unspecified; C50.919 Malignant neoplasm of unspecified site of unspecified female breast; I25.10 Atherosclerotic heart disease of native coronary artery without angina pectoris; Z87.891 Personal history of nicotine dependence; I51.9 Heart disease, unspecified | CPT/HCPCS: 93005; 99214 ==

== ENCOUNTER 2023-03-30 08:02 | Outpatient (CLI) | payer MEDICARE, OTHER, SELFPAY ==
--- NOTE | 2023-03-30 08:30 | USCV_ITS ---
Sae Gambino Age: 83 Gender: F : 1940 Exam Date: 03/30/2023 08:12 Ordering Phys: Andrea Smith M.D ([email or web address]) Technologist: Dali Penny Exam Location: [facility] – [place] Indication: SOB AND CHEST PAIN BP: 137 / 76 HR: 66 Rhythm: Sinus Technical Quality: Adequate MEASUREMENTS (Male / Female) Normal Values 2D ECHO LV Diastolic Diameter PLAX 2.7 cm 4.2 - 5.9 / 3.9 - 5.3 cm LV Systolic Diameter PLAX 2.8 cm LV Chamber Size 3.1 cm IVS Diastolic Thickness 1.0 cm 0.6 - 1.0 / 0.6 - 0.9 cm IVS Systolic Thickness 1.0 cm LVPW Diastolic Thickness 1.3 cm 0.6 - 1.0 / 0.6 - 0.9 cm LVPW Systolic Thickness 1.6 cm RV Chamber Size 2.7 cm LVOT Diameter 2.0 cm LV Ejection Fraction 2D Teich 47.0 % LV Ejection Fraction MOD 2C 35.3 % LV Ejection Fraction 2C AL 33.0 % LA Diameter 3.2 cm LA Width 3.2 cm LA Height 3.8 cm RA Width 2.5 cm RA Height 3.4 cm Aorta at Sinotubular Diameter 2.6 cm IVC Diameter 1.4 cm M-MODE Aortic Annulus Diameter 3.6 cm LA Ao Ratio MM 1.1 MV E Point Septal Separation 1.1 cm DOPPLER AV Peak Velocity 173.0 cm/s LVOT Peak Velocity 95.0 cm/s AV Area Cont Eq vti 1.9 cm squared AV Area Cont Eq pk 1.7 cm squared MV Peak Velocity 118.0 cm/s MV Area PHT 3.0 cm squared Mitral E to A Ratio 0.7 MV E' Velocity 40.0 cm/s Mitral E to MV E' Ratio 10.5 Mitral E to LV E' Lateral Ratio 10.8 Mitral E to LV E' Septal Ratio 10.2 TR Peak Velocity 147.4 cm/s TR Peak Gradient 8.7 mmHg TR Mean Velocity 101.8 cm/s TR Mean Gradient 4.7 mmHg TR Velocity Time Integral 30.3 cm TV Peak E Velocity 59.0 cm/s Right Atrial Pressure 3.0 mmHg Pulmonary Artery Systolic Pressu 11.7 mmHg RV Acceleration Time 0.1 s RV Ejection Time 0.4 s RV AcT/ET 0.3 FINDINGS Left Ventricle Left ventricle is normal in size. LV systolic function is normal with EF of 50 to 55%. No regional wall motion abnormalities are seen. Grade 1 diastolic dysfunction. Right Ventricle Normal in size. Mildly hypokinetic RV. Right Atrium Normal in size Left Atrium Normal in size Mitral Valve Mild mitral annular calcification. Mild mitral regurgitation. Aortic Valve Structurally normal aortic valve. Mild aortic regurgitation. No significant stenosis. Tricuspid Valve Mild tricuspid regurgitation. Insufficient TR jet to evaluate RVSP. Pulmonic Valve Not well visualized Pericardium Normal Aorta Normal in size IVC Appears to be normal CONCLUSIONS LV systolic function is normal with EF of 50 to 55% Grade 1 diastolic dysfunction Mildly hypokinetic RV Mild mitral regurgitation Mild aortic regurgitation Mild tricuspid regurgitation No comparison studies are available Andrea Smith MD (Electronically Signed) Final Date: 07 April 2023 14:54 S
== END 2023-03-30 08:03 | disposition home or self-care (01) ==
PROVIDERS: PCP Family Medicine Adult Medicine; Visit Provider Internal Medicine
DX: R06.02 Shortness of breath (principal); R07.9 Chest pain, unspecified; I34.0 Nonrheumatic mitral (valve) insufficiency; I35.1 Nonrheumatic aortic (valve) insufficiency; I07.1 Rheumatic tricuspid insufficiency
CPT/HCPCS: 93306

== ENCOUNTER 2023-04-09 07:33 | Outpatient (CLI) | payer MEDICARE, OTHER, SELFPAY ==
--- NOTE | 2023-04-09 08:00 | MM_ITS ---
WS: [id number] DIAGNOSTIC BILATERAL DIGITAL BREAST TOMOSYNTHESIS MAMMOGRAPHY WITH CAD HISTORY: history of breast cancer, prior lumpectomy LEFT breast. COMPARISON: 04/05/2022, 08/04/2020 and 01/04/2021 TECHNIQUE: Bilateral craniocaudad, mediolateral oblique, and mediolateral views are submitted with to mosfernando and SM. Computer aided detection utilized. Breast composition: There are scattered areas of fibroglandular density. Lung at the medial LEFT [address]. Just posterior to the lumpectomy site is a new mass measuring 13 x 10 mm seen only on the MLO pro jection. There is an acute additional mass measuring 10 mm towards the axillary tail. This could be a small lymph node which is enlarged. Normal fatty hilum is no longer present. RIGHT breast is unchang ed. Measuring MM/[id number] IMPRESSION: BI-RADS: 0-Incomplete: Need additional imaging evaluation FOLLOW UP: Need Additional Imaging LEFT breast: Spot compression views (exaggerated lateral CC and MLO). True ML. Ultrasound to follow if abnormality persists.
== END 2023-04-09 07:34 | disposition home or self-care (01) ==
LOC: RAD 07:35
PROVIDERS: PCP Family Medicine Adult Medicine; Visit Provider Nurse Practitioner Family
DX: Z85.3 Personal history of malignant neoplasm of breast (principal)
CPT/HCPCS: 77062; G0279

== ENCOUNTER 2023-05-08 12:36 | Outpatient (CLI) | payer MEDICARE, OTHER, SELFPAY ==
--- NOTE | 2023-05-08 13:04 | MM_ITS ---
WS: [id number] ADDITIONAL VIEWS LEFT MAMMOGRAM with tomosynthesis. LEFT BREAST ULTRASOUND HISTORY: History of breast cancer. New palpable nodule increasing nodularity along the scar site. COMPARISON: 04/09/2023, 04/05/2022 and 01/04/2021 LEFT MAMMOGRAM: Spot compression views and true ML with tomosynthesis and sympathetic mammography. Postsurgical changes are noted in the upper-outer quadrant of the LEFT breast. There is a new, irregu lar slightly spiculated nodule measuring 11 x 9 mm along the posterior surgical scar site. Patient al so indicates a new palpable abnormality along the more anterior scar site. Both of these nodules are new since 04/05/2022 and need to be further evaluated. There is an abnormal lymph node just become mor e dense towards the axillary tail of the LEFT breast. LEFT BREAST ULTRASOUND 2-D and color Doppler imaging submitted. Palpable nodule at 2:00 position to correspond to the deeper nodule seen by mammography. There is a h ypoechoic mass at 3:00, 4 cm from the nipple measuring 7 x 8 x 8 mm. No additional abnormality is not ed dislocation. The palpable area and the mammographic mass are probably the same areas. The lymph no de or additional soft tissue mass with axillary tail is identified measuring 9 x 8 x 9 mm. This is an abnormal lymph node needs to be further evaluated. MM/[id number] IMPRESSION: BI-RADS: 4-Suspicious Finding-Biopsy Should Be Considered FOLLOW UP: Biopsy Recommended Ultrasound-guided biopsy recommended of the new breast mass at 3:00 and also wh at is probably an abnormal lymph node in the axillary tail.
== END 2023-05-08 12:37 | disposition home or self-care (01) ==
PROVIDERS: PCP Family Medicine Adult Medicine; Visit Provider Nurse Practitioner Family
DX: R92.8 Other abnormal and inconclusive findings on diagnostic imaging of breast (principal); N63.25 Unspecified lump in the left breast, overlapping quadrants
CPT/HCPCS: 76642; 77061; G0279

== ENCOUNTER → 2023-05-22 15:07 | Outpatient (BNVA) | payer MEDICARE, OTHER, SELFPAY | PROVIDERS: PCP Family Medicine Adult Medicine; Visit Provider Internal Medicine | DX: R07.9 Chest pain, unspecified (principal); E78.5 Hyperlipidemia, unspecified; I25.10 Atherosclerotic heart disease of native coronary artery without angina pectoris; I10 Essential (primary) hypertension; Z87.891 Personal history of nicotine dependence | CPT/HCPCS: 99214 ==

== ENCOUNTER 2023-05-30 12:07 | Outpatient (CLI) | payer MEDICARE, OTHER, SELFPAY ==
--- NOTE | 2023-05-30 12:16 | US_ITS ---
WS: [id number] ULTRASOUND-GUIDED LEFT BREAST BIOPSY AND LEFT AXILLA CLINICAL INFORMATION: abnormal breast ultrasound and mammogram; history of cancer COMPARISON: 05/08/2023 FINDINGS: The procedure including risks, benefits, and complications were discussed with the patient who agreed to proceed. Using sterile technique patient was prepped and draped in the usual sterile fashion. Aft er 1% lidocaine utilizing real-time ultrasound guidance 6 14-gauge cores were obtained of the LEFT br east lesion at the 3 o'clock position 4 cm from the nipple. Subsequently a titanium clip was placed i n the biopsy cavity. Next the abnormal lymph node in the LEFT axillary tail was localized and sampled. 3 cores were obtain ed. Titanium clip placed in the biopsy cavity. PATHOLOGY DEMONSTRATES A) Left breast, 3:00 position, 4.0 cm from nipple, needle core biopsy: 1. 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 B) Left axillary lymph node, needle core biopsy: 1. 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 2. Largest dimension of tumor focus: 10 mm (glass slide measurement). 3. Focal possible lymph node capsule and lymphoid component present on one of the cores. PATHOLOGY COMMENT Both specimens demonstrate similar tumor consistent with invasive ductal carcinoma of the breast. Specimen B is submitted as a left axillary lymph node. One of the cores does show possible lymph node capsule with a few associated lymphocytes. This may represent lymph node metastasis; however, direct extension or a seco nd primary cannot be entirely excluded based on the current needle core findings. IMPRESSION: 1. Uncomplicated ultrasound-guided LEFT breast and LEFT axillary biopsy. 2. The pathology demonstrates moderately differentiated invasive ductal carcinoma. See pathology rep ort for further detail. 3. Recommend breast surgery consultation. US/US bx lymph breast/ax [id number] BI-RADS: 6-Known Biopsy-Proven Malignancy FOLLOW UP: Surgical Biopsy Recommended
--- NOTE | 2023-05-30 12:45 | US_ITS ---
WS: [id number] ULTRASOUND-GUIDED LEFT BREAST BIOPSY AND LEFT AXILLA CLINICAL INFORMATION: abnormal breast ultrasound and mammogram; history of cancer COMPARISON: 05/08/2023 FINDINGS: The procedure including risks, benefits, and complications were discussed with the patient who agreed to proceed. Using sterile technique patient was prepped and draped in the usual sterile fashion. Aft er 1% lidocaine utilizing real-time ultrasound guidance 6 14-gauge cores were obtained of the LEFT br east lesion at the 3 o'clock position 4 cm from the nipple. Subsequently a titanium clip was placed i n the biopsy cavity. Next the abnormal lymph node in the LEFT axillary tail was localized and sampled. 3 cores were obtain ed. Titanium clip placed in the biopsy cavity. PATHOLOGY DEMONSTRATES A) Left breast, 3:00 position, 4.0 cm from nipple, needle core biopsy: 1. 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 B) Left axillary lymph node, needle core biopsy: 1. 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 2. Largest dimension of tumor focus: 10 mm (glass slide measurement). 3. Focal possible lymph node capsule and lymphoid component present on one of the cores. PATHOLOGY COMMENT Both specimens demonstrate similar tumor consistent with invasive ductal carcinoma of the breast. Specimen B is submitted as a left axillary lymph node. One of the cores does show possible lymph node capsule with a few associated lymphocytes. This may represent lymph node metastasis; however, direct extension or a seco nd primary cannot be entirely excluded based on the current needle core findings. IMPRESSION: 1. Uncomplicated ultrasound-guided LEFT breast and LEFT axillary biopsy. 2. The pathology demonstrates moderately differentiated invasive ductal carcinoma. See pathology rep ort for further detail. 3. Recommend breast surgery consultation. US/[place] [id number] BI-RADS: 6-Known Biopsy-Proven Malignancy FOLLOW UP:
[2023-06-05 10:49] LABS: Breast Profile ER,PR,HER2,Ki-6 See Report
== END 2023-05-30 12:08 | disposition home or self-care (01) ==
PROVIDERS: PCP Family Medicine Adult Medicine; Visit Provider Nurse Practitioner Family
DX: C50.412 Malignant neoplasm of upper-outer quadrant of left female breast (principal); R92.8 Other abnormal and inconclusive findings on diagnostic imaging of breast; Z17.0 Estrogen receptor positive status [ER+]
CPT/HCPCS: 19083; 38505; 76942; 88305; 88361; 88374

== ENCOUNTER 2023-06-05 13:58 | Oncology outpatient (recurring) (ONCR) | payer MEDICARE, OTHER, SELFPAY ==
--- OUTSIDE RECORDS SUMMARY | 2023-06-05 14:00 | XMS_ITS | Patient Health Record ---
Author Name Unknown Organization [facility] Address [address] [place] [address] Care Team Providers Care Editor Newspaper Name Role Phone Lew Awad Primary Care Provider Unavailabl e ALLERGIES Allergen (clinical drug ingredient) Drug/Non Drug Allergy documented on EMR Reaction Allergy Type Onset Date Status diazepam Valium hallucinations Drug Allergy Ac tive Valium (diazepam) Unknown Drug Allergy Active Medicinal cephalosporin and acting as antibacterial agent (FN) Cephalosporins rash Drug Allergy Active REASON FOR REFERRAL No Information MEDICATIONS Medication SIG (Take, Route, Frequency, Duration) Notes Start Date End Date Status Sertraline HCl 50 MG 1 tablet Orally Onc e a day for 90 days Active Anastrozole 1 MG 1 tablet Orally Once a day Active Vitamin D 50 MCG (1999) 1 capsule Ora lly Once a day Active Atenolol 50 MG 1 tablet Orally Once a day for 90 days Active Omeprazole 20 MG 1 capsule 30 minutes before morning meal Orally Once a day for 90 days Active Xanax 0.25 MG 1 tablet Orally Twic e a day for 30 days Active Benazepril-hydroCHLOROthia zide 20-25 MG 1 tablet Orally Once a day for 90 days Active Nitroglycerin 0.2 MG/HR APPLY 1 PATCH TO SKIN REMOVE AFTER 12 HOURS USE DAILY ON AT NIGHT AND OFF AT 2 PM for 30 Active Simvastatin 20 MG 1 tablet in the even ing Orally Once a day for 90 days Active Benazepril HCl 20 MG 1 tablet Orally Onc e a day for 90 days Active Fexofenadine HCl 180 MG 1 tablet Orally Once a day Active Aspirin Adult 325 MG 1 tablet Orally Onc e a day Active Naproxen 220 MG 1 tablet with food o r milk as needed Orally every 12 hrs for 30 days Uses OTC 10/19/2020 Active Nitroglycerin 0.4 MG 1 tab every 5 minut es with max dose 3 tabs Sublingual Once a day for 30 days 07/08/2021 Active Albuterol Sulfate HFA 108 (90 Base) MCG/ACT 2 puff as needed for SOB Inhalation every 4 hrs for 30 days Active IMMUNIZATIONS Vaccine Route Administration Date Status Comme nts COVID-19 Vaccine (Pfizer) Dose #1 Unknown 11/12/2020 Administered COVID-19 Vaccine (Pfizer) Dose #2 Unknown 12/10/2020 Administered Flucelvax IM Intramuscular 08/09/2021 Administered SOCIAL HISTORY Tobacco Use: Social History Observation Description Date Details (start date - stop date) Former Smoker NA - NA Sex Assigned At : Social History Observation Description Sex Assigned At Unknown Household Question Answer Notes Marital status: Tobacco Use/Smoking Question Answer Notes Are you a former smoker How long has it been since you last smoked? > 10 years Alcohol Screen (Audit-C) Question Answer Notes Did you have a drink containing alcohol in the p ast year? No Points 0 Interpretation Negative PHQ-9 Question Answer Notes Little interest or pleasure in doing things Not at all Feeling down, depressed, or hopeless Nearly ever y day Trouble falling or staying a sleep, or sleeping too much More than half the days Feeling tired or having little energy Nearly madhu ry day Poor appetite or overeating Nearly every day Feeling bad about yourself, or that you are a failure, or have let yourself or your family down Nearly every day Trouble concentrating on thi ngs, such as reading the newspaper or watching television Not at all Moving or speaking so slowly that other people could have noticed. Or the opposite ? being so fidgety or restless that you have been moving around a lot more than usual Not at all Thoughts that you would be b dm off , or of hurting yourself in some way Nearly every day (Consider Suicide Assessment Risk) Total Score 17 Interpretation Moderately severe depression PROBLEMS Problem Type ICD Code Onset Dates Problem Status W/U Status Risk SNOMED Code Notes Problem Other dyspnea and respiratory abnormalities (786.09) 05/05/20 13 Active confirmed Dyspnea (913442036) [facility] [id number] Problem Other chronic pain (G89.29) Active confirmed 92873089 Problem Essential (primary) hypertension (I10) Active confirmed 36416120 Problem Gastroesophageal reflux disease without esophagitis (K21.9) Active confirmed 782786318 Problem Anxiety (F41.9) Active confirmed 277225 02 Problem Hyperlipidemia, unspecified hyperlipidemia type (E78.5) Active confirmed 91454385 Problem Current moderate episode of major depressive disorder, unspecified whether recurrent (F32.1) Active confirmed 05938244 Problem Malignant neoplasm of upper-outer quadrant of right female breast, unspecified estrogen receptor status (C50.411) Inactive confirmed 892446208 Problem Morbid obesity (E66.01) Active confirmed 177190019 PLAN OF TREATMENT Pending Test Test Name Order Date PETCT 11/28/2019 Insurance Providers Payer Name Payer Address Payer Phone Subscriber Number Group Number Insured Name Patient Relationship to Insured Coverage Start Date Coverage End Date [place] [address] [place] [phone] [id number] Sae Gambino Self - patient is the insured [facility] Insurance [address] [address] [place] RUVAL[place] [phone] [id number] Sae Gambino Self - patient is the insured MEDICAL (GENERAL) HISTORY Medical History History ICD Code breast cancer- lumpectomy 12/2019-no nee d for radiation or chemo possible OR seasonal allergies Osteoarthritis undefined Osteopenia Vitamin D Deficiency Pulmonary nodule elevated triglycerides Essential (primary) hypertension I10 Hyperlipidemia, unspecified hyperlipidem ia type E78.5 Current moderate episode of major depressive disorder, unspecified whether recurrent F32.1 Gastroesophageal reflux disease without esophagitis K21.9 Morbid obesity E66.01 Anxiety F41.9 Surgical History Surgery Date(Month/Year) lumpectomy 2019 cataract D and C 1973 Hospitalization History Reason Date(Month/Year) FOWLER stayed x1 week see surgeries above
== END 2023-06-14 23:59 | disposition home or self-care (01) ==
LOC: ONCMED 13:58
PROVIDERS: PCP Family Medicine Adult Medicine; Visit Provider Internal Medicine Medical Oncology
DX: Z08 Encounter for follow-up examination after completed treatment for malignant neoplasm (principal); Z85.3 Personal history of malignant neoplasm of breast; F32.9 Major depressive disorder, single episode, unspecified; M85.88 Other specified disorders of bone density and structure, other site; R07.89 Other chest pain; Z79.899 Other long term (current) drug therapy; Z92.23 Personal history of estrogen therapy; Z87.891 Personal history of nicotine dependence
CPT/HCPCS: 99214

== ENCOUNTER → 2023-06-12 09:11 | Outpatient (BNVA) | payer MEDICARE, OTHER, SELFPAY | PROVIDERS: PCP Family Medicine Adult Medicine; Visit Provider Surgery | DX: C50.912 Malignant neoplasm of unspecified site of left female breast (principal); C50.919 Malignant neoplasm of unspecified site of unspecified female breast; C77.3 Secondary and unspecified malignant neoplasm of axilla and upper limb lymph nodes | CPT/HCPCS: 99203 ==

== ENCOUNTER 2023-07-02 09:54 | Day surgery (SDC) | payer MEDICARE, OTHER, SELFPAY ==
[2023-06-29 10:58] VITALS: BMI 41.1
[2023-07-02] VITALS (15 sets, daily range): BP systolic 147–167; BP diastolic 77–95; PULSE 59–98; RESP 9–20; TEMP 36.1–36.4; O2SAT 91–98; BMI 41.1
--- NOTE | 2023-07-02 10:24 | US_ITS ---
WS: [id number] ULTRASOUND-GUIDED LEFT BREAST NEEDLE LOCALIZATION LEFT BREAST SPECIMEN ULTRASOUND. HISTORY: LEFT breast wire localization of the known neoplasm at 3:00. Procedure, risks and complications were explained to the patient. Consent is obtained. Skin is cleansed with ChloraPrep and anesthetized with 1% buffered lidocaine. Needle and guidewire pl aced to the area of concern with no complications. Ultrasound guidance performed during the needle lo calization. Guidewire is left within the lesion. Guidewire secured and no complications encountered. Patient is being transported to the OR suite. Localization wire extends to the central mass by 1 cm. Specimen radiograph is also reviewed. The mass localized earlier the same day is evident on the speci men image. IMPRESSION: 1. Uncomplicated and successful LEFT breast wire localization of a known neoplasm at 3:00. 2. Mass is contained within the specimen. PATHOLOGY RESULTS: Infiltrating ductal carcinoma. Suspicious for lymphovascular invasion. Please see the entire pathology report for further detail. RECOMMENDATIONS: Follow-up with breast surgeon and oncology.
--- NOTE | 2023-07-02 10:46 | W.PM.OPSUD ---
Surgery/Procedure H&P Update DATE OF PROCEDURE: July 02, 2023 DATE H&P PERFORMED: 06/12/23 H&P UPDATE INFORMATION: I have reviewed H&P completed within last 30 days, I have examined patient prior to procedure and Changes to prior documentation as noted here CHANGES TO PREVIOUS DOCUMENTATION: Procedure is left breast lumpectomy with needle insertion and radiologic correlation and left axillary lymph node dissection PLANNED PROCEDURE: Operation Date: 07/02/23 12:30 [place] p [id number] left breast lumpectomy with left axillary lymph node dissection C50.912 C50.919 C77.3(Left) - DO martir Doe Excision Lymph Node Upper Extremity(Left) - DO martir Doe Sentinal Lymph Node Biopsy(Left) - Tc Lawton DO
[2023-07-02] MEDS: vancomycin 1,500 MG/300 ML PIGGYBACK 200 MG IV (11:48)
[2023-07-02] MEDS: sodium chloride 0.9% 1,000 ML 30 ML IV (11:50)
--- NOTE | 2023-07-02 13:08 | ANES.PREANE2 ---
Pre-Anesthetic Assessment Height/Weight: Height 1.57 m Weight 102.058 kg Temp Pulse Resp BP Pulse Ox O2 Del Method 97.5 F L 70 17 167/80 92 Room Air 07/02/23 10:37 07/02/23 10:37 07/02/23 10:37 07/02/23 10:37 07/02/23 10:37 07/02/23 10:49 Operation Date: 07/02/23 12:30 [place] [id number] left breast lumpectomy with left axillary lymph node dissection C50.912 C50.919 C77.3(Left) - DO martir Doe Excision Lymph Node Upper Extremity(Left) - DO martir Doe Sentinal Lymph Node Biopsy(Left) - Tc Lawton DO Was Beta Ronnell taken within 24 hours: Yes Was Clonidine taken within 24 hours: N/A Last intake: Intake Last Liquid Date 07/01/23 Last Liquid Time 22:00 Last Solid Date 07/01/23 Last Solid Time 22:00 Social No tobacco Exam alert, oriented x 3, clear to auscultation bilaterally and regular rate & rhythm Airway Submandibular: within normal limits Cervical ROM: within normal limits Mallampati: Class II Dentition: false Comments: Comments: Upper and lower dentures History/ROS No significant history except as noted CV/HEM Coronary Artery Disease and Hypertension Metabolic Hyperlipidemia Neuropsych Anxiety Anesthetic Plan ASA status: 3 Anesthesia: General Risk of > 500 ml blood loss (7ml/kg in children): No Medications/Allergies Home Medications Medication Instructions Recorded Confirmed Last Taken Type aspirin 325 mg tablet 325 mg PO DAILY 02/24/22 06/29/23 06/28/23 History naproxen 500 mg tablet 500 mg PO BID PRN pain 02/24/22 06/29/23 06/26/23 History ergocalciferol (vitamin D2) 50 mcg 50 mcg PO DAILY 05/08/22 06/29/23 06/29/23 History (2,000 unit) capsule calcium acetate 667 mg tablet See Rx Instructions PO DAILY 07/12/22 06/29/23 06/29/23 History cetirizine 10 mg tablet 10 mg PO DAILY 07/12/22 06/29/23 06/29/23 History amlodipine 5 mg tablet 5 mg PO DAILY #90 tabs 02/05/0607/02/23 07/02/23 Rx simvastatin 20 mg tablet 20 mg PO DAILY #90 tabs 12/11/22 06/29/23 06/29/23 Rx motorized wheelchair #1 ea 01/09/23 06/12/23 Unknown Rx benazepril 20 1 tab PO DAILY #30 tabs 03/26/23 06/29/23 06/29/23 Rx mg-hydrochlorothiazide 25 mg tablet sertraline 50 mg tablet 50 mg PO DAILY depression #90 tabs 03/30/23 06/29/23 06/29/23 Rx alprazolam 0.25 mg tablet 0.5 mg PO BID PRN anxiety #60 tabs 05/29/23 06/29/23 06/28/23 Rx atenolol 50 mg tablet 50 mg PO DAILY high blood pressure 05/29/23 07/02/23 07/02/23 Rx #30 tabs acetaminophen 500 mg tablet 500 mg PO Q6H PRN Mild Pain (Scale 06/05/23 06/29/23 Unknown History (Tylenol Extra Strength) Score 1-4) Allergies Allergy/AdvReac Type Severity Reaction Status Date / Time cefazolin Allergy Unknown Unknown Verified 06/12/23 09:41 diazepam [From Valium] Allergy Unknown Unknown Verified 06/12/23 09:41 Current Medications Generic Name Dose Route Start Last Admin Trade Name Freq PRN Reason Stop Dose Admin Sodium Chloride 1,000 mls @ 30 mls/hr 07/02/23 10:15 07/02/23 11:50 Sodium Chloride 0.9% IV 07/03/23 10:14 30 mls/hr .Q24H YANIV Administration PFSH Anesthesia Medical History (Updated 06/12/23 @ 10:19 by Tc Lawton DO) Anxiety disorder due to general medical condition with panic attack Bilateral arm numbness and tingling while sleeping Breast cancer Breast lesion on mammography CAD (coronary artery disease) remote [place] ~ 2005 Costochondral chest pain Degenerative arthritis Depression Dyslipidemia Gastroesophageal reflux disease Hypertension Infiltrating ductal carcinoma of upper-outer quadrant of left breast in female Morbid obesity with BMI of 40.0-44.9, adult Osteopenia Multiple sites 2009 Surgical History (Updated 06/12/23 @ 10:19 by Tc Lawton DO) History of cataract extraction Bilateral History of knee surgery (2021) Left meniscus repair History of lumpectomy of left breast (01/02/20) Hx of colonoscopy Family History Father Cancer bladder Other Hyperlipidemia Hypertension Denies family history of Diabetes CAD (coronary artery disease) Clotting disorder Dementia Psychiatric illness Chronic kidney disease (CKD) Suicide Anesthesia complication Bleeding disorder Lung disease Stroke Social History Smoking and tobacco status: former smoker (smoked x 20 years) Quit status (tobacco): has quit using tobacco Year quit tobacco: 1967 Former quit date comment: smoked for 20y Alcohol intake: never Data Anesthesia Cardiac Studies: Echocardiogram 03/30/23
[2023-07-02] MEDS: lidocaine-epi 2% 20 mL INJ INJECTION (13:12)
--- NOTE | 2023-07-02 14:39 | P.OP_ITS ---
Operative Report Date of procedure: July 02, 2023 Pre-op diagnosis: Left breast cancer Post-op diagnosis: same Procedure done: Left breast lumpectomy with needle insertion and wire localization and left axil giorgio node dissection Implants: Gisell, 10 [place] Yifan drain Surgeon: Tc Lawton DO Anesthesia: General Estimated blood loss (mL): 100 Complications: None apparent Brief History: This very pleasant 83-year-old female who has biopsy-proven recurrent left breast cancer along with biopsy-proven positive left axillary lymph nodes. Left breast lumpectomy with left axillary node dissection was indicated. The risk and benefits were explained and documented. Procedure: After wire localization was performed by radiology, the patient was brought back into the operating room. She was placed on the OR table in the supine position. The left breast and axilla were inspected prepped and draped in usual sterile fashion. A timeout was performed. All present were in agreement. A 7 cm ellipse of skin was taken at 3 o'clock position of the left breast, removing the previous scar and taking underlying tissue. Electrocautery was used to carve out a lumpectomy specimen. The entire needle was included. Dissection was carried down to the pectoralis major muscle. Specimen was taken out en bloc. S kin marked anterior, short silk stitch marked superior and long double silk stitch doherty medial. Hemostasis was achieved with electrocautery. Specimen was sent to radiology who said the clip and wire were surrounded by adequate tissue margins. An oblique incision was then made at the inferior axillary fold and brought anteriorly. Dissection was carried down to fascia with electrocautery. The clavipectoral fascia was incised along the edge of the pectoralis major muscle identify the major and minor muscle. There were multiple palpable Tom's nodes that were included in the specimen. The dissection was carried posteriorly to the latissimus dorsi muscle, the long thoracic nerve was identified along the serratus anterior muscle along with the lateral pectoral bundle. The pectoralis minor head was retracted superiorly to identify the axillary vein. Careful dissection was performed around the axillary vein, posterior to the pectoralis minor muscle to free the level II axillary nodes. The dissection was carried laterally, The thoracodorsal neurovascular bundle was identified posteriorly. The lymph nodes between these 2 nerves were freed. The wound was irrigated with warm water and the site was reexamined to ensure adequate hemostasis. There was no active bleeding noted. A stab incision was made laterally and 10 [place] Yifan drain was placed along the inframammary fold and attached to bulb suction. Gisell was placed into the wound bed. The dermis was approximated with 3-0 Vicryl. The skin was closed with 4-0 Vicryl in a subcuticular and running fashion. Dermabond was applied. Patient tolerated the procedure well.
[2023-07-02] MEDS: fentaNYL 50 mcg/mL INJ 2mL IVP (15:50)
[2023-07-02] MEDS: oxyCODONE-APAP 5-325 mg Tablet 1 TAB PO (16:35)
--- NOTE | 2023-07-02 17:20 | ANE.PACU2 ---
Inpatient post-anesthesia follow up: Airway intact: Yes Vital signs: Temperature 97.0 F Pulse Rate 67 Respiratory Rate 16 Blood Pressure 167/95 Pulse Oximetry 96 Oxygen Delivery Me thod Nasal Cannula Oxygen Flow Rate 2 Fraction of Inspir ed Oxygen Hydration adequate: Yes Nausea and vomiting: No Pain level: 3 Mental status: Baseline
== END 2023-07-02 17:24 | disposition home or self-care (01) ==
PROVIDERS: Family Provider Internal Medicine Medical Oncology; PCP Family Medicine Adult Medicine; Visit Provider Surgery
PROC: (CPT 19301; principal; 2023-07-02 12:20)
PROC: (CPT 19301; 2023-07-02 12:20)
PROC: (CPT 19301; 2023-07-02 12:20)
DX: C50.912 Malignant neoplasm of unspecified site of left female breast (principal); I25.10 Atherosclerotic heart disease of native coronary artery without angina pectoris; I10 Essential (primary) hypertension; E78.5 Hyperlipidemia, unspecified; Z79.82 Long term (current) use of aspirin; I25.2 Old myocardial infarction; Z87.891 Personal history of nicotine dependence
CPT/HCPCS: 19301; 38500; 19285; 38792; 78195; 88307; A9520; A9541; C1889; J2405; J2704; J3010; J3370; J7030

== ENCOUNTER 2023-07-11 10:55 | Oncology outpatient (recurring) (ONCR) | payer MEDICARE, OTHER, SELFPAY | END 2023-07-14 23:59 | disposition home or self-care (01) | PROVIDERS: Family Provider Internal Medicine Medical Oncology; PCP Family Medicine Adult Medicine; Visit Provider Internal Medicine Medical Oncology | DX: C50.412 Malignant neoplasm of upper-outer quadrant of left female breast (principal); Z17.0 Estrogen receptor positive status [ER+]; F32.9 Major depressive disorder, single episode, unspecified; M85.88 Other specified disorders of bone density and structure, other site; R07.89 Other chest pain; Z79.899 Other long term (current) drug therapy; Z92.23 Personal history of estrogen therapy; Z87.891 Personal history of nicotine dependence | CPT/HCPCS: 99215 ==

== ENCOUNTER 2023-08-06 09:58 | Oncology outpatient (recurring) (ONCR) | payer MEDICARE, OTHER, SELFPAY ==
--- OUTSIDE RECORDS SUMMARY | 2023-07-17 11:05 | XMS_ITS ---
Author Name Lew Awad Address [address], [place] [id number] [facility] Address [address] [place] [address], [place] [id number] Care Team Providers Care Public Events Facilities Rental Manager Name Role Phone Lew Awad Primary Care Physician Unavail able Bulmaro Alvarez Unavailable Unavailable Cristopher Richards Unavailable Unavailable Rd Unavailable Unavailable Lew Awad Preferred Provider Unavailable Allergies and Adverse Reactions Name Reaction Notes Valium CEPHALOSPORINS Medications Active Name Start Date Estimated Comple tion Date SIG Comments aspirin 325 mg oral tablet take 1 tablet (325 mg) by oral route once daily benazepril 20 mg oral tablet 05/31/2020 TAKE 1 TABLET BY MOUTH ONCE DAILY FOR 90 DAYS atenolol 50 mg oral tablet 01/12/2022 TAKE 1 TABLET BY MOUTH ONCE DAILY FOR 90 DAYS omeprazole 20 mg oral capsule,delayed release(DR/EC) 01/12/2022 TAKE 1 CAPSULE BY MOUTH ONCE DAILY BEFORE MEAL(S) FOR 90 DAYS Zyrtec 10 mg tablet take 1 t ablet (10 mg) by oral route once daily for 90 days Name Start Date Expiration Date SIG Comments Nifediac CC 30 mg oral tablet extended release 11/19/2007 11/19/2007 take 1 tablet by oral route 2 times a day as needed bp > 170 no longer taking Flexeril 10 mg oral tablet 06/25/2008 07/15/2008 take 1 tablet by oral route 3 times a day as needed for 20 days Darvocet-N 100 100-650 mg oral tablet 06/25/2008 07/05/2008 take 1 tablet by oral route every 6 hours as needed for pain for 10 days Phenergan-Codeine 6.25-10 mg/5 mL oral syrup 07/27/2008 08/06/2008 take 5 milliliters by oral route every 6 hours as needed, not to exceed 30 ml in 24 hours for 10 days Lortab 5-500 mg oral tablet 09/14/2008 10/14/2008 take 1 tablet by oral route every 6 hours as needed for pain for 30 days Zithromax Z-Derek 250 mg oral tablet 09/24/2008 09/29/2008 take 2 tablets (500 mg) by oral route once daily for 1 day then 1 tablet (250 mg) by oral route once daily for 4 days Replaced/Retired Drug 10-100 mg/5 mL oral liquid 09/24/2008 take 10 milliliters by oral route 4 times a day as needed Augmentin 875-125 mg oral tablet take 1 tablet by oral route every 12 hours for 7 days Cipro 500 mg oral tablet 03/18/2012 03/25/2012 take 1 tablet (500 mg) by oral route 2 times per day for 7 days fluoxetine 20 mg oral capsule 02/07/2013 05/08/2013 TAKE TWO CAPSULES BY MOUTH EVERY DAY Centrum Silver oral tablet take 1 tablet by oral route daily Aleve 220 mg oral tablet 03/30/2014 04/06/2014 take 1 tablet (220 mg) by oral route every 12 hours as needed for 7 days Cipro 500 mg oral tablet 03/30/2015 04/04/2015 take 1 tablet (500 mg) by oral route every 12 hours for 5 days Tamiflu 75 mg oral capsule 10/30/2016 11/04/2016 take 1 capsule (75 mg) by oral route 2 times per day for 5 days amoxicillin 500 mg oral capsule 10/31/2017 11/07/2017 take 1 capsule (500 mg) by oral route 3 times per day for 7 days tizanidine 2 mg oral tablet 10/31/2017 11/10/2017 take 1 tablet by oral route every 8 hours as needed for 10 days Pt. states I took and finished. amoxicillin 500 mg oral capsule 11/09/2017 11/16/2017 take 1 capsule (500 mg) by oral route 3 times per day for 7 days Pt. states I took and finished this. Vitamin D3 2,000 unit oral tablet 04/29/2018 07/28/2018 take 1 tablet by oral route daily for 90 days fluoxetine 20 mg oral capsule 05/03/2018 04/28/2019 take 3 capsules by oral route daily for 90 days fexofenadine 180 mg oral tablet 06/05/2019 06/19/2019 take 1 tablet (180 mg) by oral route once daily for 14 days fluticasone propionate 50 mcg/actuation nasal spray,suspension 07/03/2019 08/02/2019 spray 1 spray (50 mcg) in each nostril by intranasal route once daily for 30 days sertraline 50 mg oral tablet 12/09/2019 12/03/2020 take 1 tablet (50 mg) by oral route once daily for 90 days simvastatin 20 mg tablet 01/12/2022 01/07/2023 TAKE 1 TABLET BY MOUTH ONCE DAILY IN THE EVENING hydrocodone 5 mg-acetaminophen 325 mg tablet 01/24/2022 take 1 tablet by oral route every 4 hours as needed for pain finished BENAZEPRIL-HCTZ 20-25 MG TAB 08/09/2022 11/07/2022 TAKE 1 TABLET BY MOUTH EVERY DAY Xanax 0.5 mg oral tablet 08/09/2022 12/07/2022 take 0.5 tablet by oral route 2 times a day as needed Discontinued Name Start Date Discontinued Date SIG Comment s Vytorin 10-10 10-10 mg oral tablet 09/17/2007 11/06/2007 take 1 tablet by oral route once daily Benicar HCT 40-12.5 mg oral tablet 05/13/2008 05/25/2009 take 1 tablet by oral route once daily $ prednisone 9 day taper 09/08/2008 12/09/2008 40 mg po daily x 3 days30 mg po daily x 3 days20 mg po daily x 3 day Calcium 600 + D(3) 600 mg(1,500mg) -400 unit oral tablet 07/07/2010 05/05/2019 take 2 tablets by oral route daily fluoxetine 40 mg oral capsule 03/18/2012 02/07/2013 take 1 capsule (40 mg) by oral route once daily in the morning for 90 days deleted Zyrtec 10 mg oral tablet 06/05/2019 take 1 tablet by oral route daily krill oil 500 mg oral capsule 10/06/2015 take 1 capsule by oral route daily Vitamin B-12 1,000 mcg oral tablet extended release 04/07/2015 take 1 tablet by oral route daily benazepril 20 mg oral tablet 09/28/2014 take 1 tablet (20 mg) by oral route once daily for 90 days benazepril 20 mg oral tablet 12/14/2015 TAKE ONE TABLET BY MOUTH ONCE DAILY FOR 90 DAYS benazepril 20 mg oral tablet 07/17/2016 04/25/2017 TAKE ONE TABLET BY MOUTH ONCE DAILY FOR 90 DAYS duplicate cholecalciferol (vitamin D3) 1,000 unit oral capsule 04/25/2017 05/05/2019 take 1 capsule by oral route daily duplicate mirtazapine 30 mg oral tablet 06/05/2019 07/11/2019 take 0.5 tablet by oral route daily hallucinations anastrozole 1 mg oral tablet 05/22/2022 take 1 tablet (1 mg) by oral route once daily per Dr. Sultana in [place] nitroglycerin 0.2 mg/hr transdermal 24 hour patch 12/14/2021 02/16/2022 apply 1 patch by transdermal route once daily remove at night for 10-12 hours for 30 days dc per pt Problem List Description Status Onset Benign Essential Hypertension Active Dyslipidemia Active Coronary Artery Disease Active Malignant neoplasm of left f [place] breast, unspecified estrogen receptor status, unspecified site of breast Active 06/16/2020 Moderate episode of recurrent major depressive d isorder Active 01/12/2022 Vitamin D deficiency Active 01/12/2022 GERD (gastroesophageal reflux disease) Active Age related osteoporosis Active 022 Ambulates with cane Active Morbid Obesity Active Vital Signs Date Time BP-Sys(mm[Hg] BP-Iona(mm[Hg]) HR(bpm) RR(rpm) Temp WT HT HC BMI BSA BMI Percentile O2 Sat(%) 8:36: 00 AM 120 mm[Hg] 80 mm[Hg] 60 {beats}/ min 231 .37 5 lbs 61. 5 in 43.0 095 kg/m 2 2.13 4 m2 96 % 022 9:16: 00 AM 128 mm[Hg] 84 mm[Hg] 60 {beats}/ min 18 rpm 226 .5 lbs 62 in 41.4 3 kg/m 2 2.12 m2 93 % 2021 2:43: 00 PM 128 mm[Hg] 78 mm[Hg] 82 {beats}/ min 18 rpm 230 lbs 62 in 42.0 671 kg/m 2 2.13 63 m2 94 % 020 8:45: 00 AM 124 mm[Hg] 82 mm[Hg] 66 {beats}/ min 18 rpm 230 lbs 62 in 42.0 7 kg/m 2 2.14 m2 94 % 2019 9:30: 00 AM 134 mm[Hg] 82 mm[Hg] 65 {beats}/ min 18 rpm 225 .12 5 lbs 62 in 41.1 755 kg/m 2 2.11 35 m2 95 % 2019 9:50: 00 AM 132 mm[Hg] 78 mm[Hg] 63 {beats}/ min 16 rpm 98.7 F 224 .37 5 lbs 62 in 41.0 4 kg/m 2 2.11 m2 98 % 2018 11:12 :00 AM 118 mm[Hg] 70 mm[Hg] 72 {beats}/ min 18 rpm 97.9 F 232 .12 5 lbs 62 in 42.4 558 kg/m 2 2.14 61 m2 92 % 2018 9:18: 00 AM 130 mm[Hg] 88 mm[Hg] 76 {beats}/ min 18 rpm 98.3 F 240 .06 2 lbs 62 in 43.9 1 kg/m 2 2.18 m2 98 % 2018 9:17: 00 AM 134 mm[Hg] 86 mm[Hg] 64 {beats}/ min 17 rpm 234 .12 5 lbs 62 in 42.8 216 kg/m 2 2.15 54 m2 2018 9:08: 00 AM 155 mm[Hg] 96 mm[Hg] 60 {beats}/ min 16 rpm 213 .37 5 lbs 62 in 39.0 3 kg/m 2 2.06 m2 019 10:29 :00 AM 138 mm[Hg] 82 mm[Hg] 68 {beats}/ min 20 rpm 97.2 F 234 .12 5 lbs 62. 5 in 42.1 392 kg/m 2 2.16 4 m2 95 % 2017 3:13: 00 PM 130 mm[Hg] 70 mm[Hg] 98 {beats}/ min 18 rpm 218 .37 5 lbs 62. 5 in 39.3 0 kg/m 2 2.09 m2 93 % 2017 2:26: 00 PM 128 mm[Hg] 76 mm[Hg] 80 {beats}/ min 98.2 F 225 .5 lbs 62. 5 in 40.5 868 kg/m 2 2.12 38 m2 2017 11:28 :00 AM 132 mm[Hg] 82 mm[Hg] 68 {beats}/ min 18 rpm 225 .25 lbs 62. 5 in 40.5 4 kg/m 2 2.12 m2 2016 1:52: 00 PM 110 mm[Hg] 68 mm[Hg] 66 {beats}/ min 18 rpm 229 lbs 62. 5 in 41.2 168 kg/m 2 2.14 02 m2 2016 11:09 :00 AM 124 mm[Hg] 72 mm[Hg] 74 {beats}/ min 18 rpm 100.9 F 228 lbs 62. 5 in 41.0 4 kg/m 2 2.14 m2 95 % 2015 8:19: 00 AM 134 mm[Hg] 90 mm[Hg] 65 {beats}/ min 18 rpm 227 .37 5 lbs 62. 5 in 40.9 243 kg/m 2 2.13 26 m2 96 % 10/06 3:02: 00 PM 128 mm[Hg] 68 mm[Hg] 74 {beats}/ min 20 rpm 228 .37 5 lbs 62. 5 in 41.1 0 kg/m 2 2.14 m2 09/02 9:35: 00 AM 122 mm[Hg] 72 mm[Hg] 78 {beats}/ min 20 rpm 224 .25 lbs 62. 5 in 40.3 618 kg/m 2 2.11 79 m2 2014 3:36: 00 PM 158 mm[Hg] 90 mm[Hg] 60 {beats}/ min 18 rpm 226 .5 lbs 62. 5 in 40.7 7 kg/m 2 2.13 m2 2014 8:41: 00 AM 128 mm[Hg] 82 mm[Hg] 72 {beats}/ min 14 rpm 225 .37 5 lbs 62. 5 in 40.5 643 kg/m 2 2.12 32 m2 09/28 8:21: 00 AM 138 mm[Hg] 80 mm[Hg] 66 {beats}/ min 16 rpm 226 lbs 62 in 41.3 4 kg/m 2 2.12 m2 2013 2:45: 00 PM 144 mm[Hg] 70 mm[Hg] 68 {beats}/ min 16 rpm 228 lbs 62 in 41.7 013 kg/m 2 2.12 7 m2 014 10:21 :00 AM 116 mm[Hg] 64 mm[Hg] 64 {beats}/ min 224 .37 5 lbs 62 in 41.0 4 kg/m 2 2.11 m2 2012 8:40: 00 AM 122 mm[Hg] 70 mm[Hg] 84 {beats}/ min 199 .5 lbs 62 in 36.4 9 kg/m 2 1.99 m2 2012 8:39: 00 AM 136 mm[Hg] 70 mm[Hg] 60 {beats}/ min 20 rpm 210 .37 5 lbs 62 in 38.4 777 kg/m 2 2.04 31 m2 012 10:51 :00 AM 142 mm[Hg] 9 mm[Hg] 84 {beats}/ min 216 .5 lbs 07/27 2:57: 00 PM 140 mm[Hg] 70 mm[Hg] 90 {beats}/ min 219 .25 lbs 62 in 40.1 009 kg/m 2 2.08 58 m2 2010 2:12: 00 PM 154 mm[Hg] 62 mm[Hg] 84 {beats}/ min 219 .37 5 lbs 62 in 40.1 2 kg/m 2 2.09 m2 2010 8:58: 00 AM 140 mm[Hg] 80 mm[Hg] 80 {beats}/ min 205 .12 5 lbs 10/05 10:26 :00 AM 138 mm[Hg] 80 mm[Hg] 80 {beats}/ min 205 .5 lbs 62 in 37.5 861 kg/m 2 2.01 93 m2 2009 10:29 :00 AM 128 mm[Hg] 78 mm[Hg] 80 {beats}/ min 16 rpm 205 lbs 2009 10:24 :00 AM 158 mm[Hg] 80 mm[Hg] 78 {beats}/ min 20 rpm 217 lbs 2008 8:00: 00 AM 128 mm[Hg] 72 mm[Hg] 68 {beats}/ min 16 rpm 205 lbs 2008 9:56: 00 AM 134 mm[Hg] 80 mm[Hg] 64 {beats}/ min 206 lbs 09/24 1:30: 00 PM 154 mm[Hg] 106 mm[Hg] 80 {beats}/ min 16 rpm 99 F 210 lbs 09/08 1:30: 00 PM 138 mm[Hg] 90 mm[Hg] 72 {beats}/ min 212 .37 5 lbs 07/27 8:03: 00 AM 158 mm[Hg] 94 mm[Hg] 76 {beats}/ min 98.4 F 2007 1:38: 00 PM 152 mm[Hg] 80 mm[Hg] 88 {beats}/ min 215 lbs 2007 8:27: 00 AM 118 mm[Hg] 76 mm[Hg] 84 {beats}/ min 16 rpm 210 lbs 2007 9:13: 00 AM 142 mm[Hg] 84 mm[Hg] 76 {beats}/ min 211 lbs 008 1:37: 00 PM 152 mm[Hg] 90 mm[Hg] 80 {beats}/ min 20 rpm 214 lbs 2007 8:35: 00 AM 172 mm[Hg] 104 mm[Hg] 76 {beats}/ min 212 lbs Social History Name Description Comments Tobacco Former smoker 02/16/2022 - - 12/09/2019 - 10/28/2019 - 04/29/2018 - 04/25/2017 - 04/12/2016 - Alcohol Never 02/16/2022 - - 12/09/2019 - 10/28/2019 - 04/29/2018 - 04/12/2016 - Amount used: 0-2 per day LIVING WILL 05/22/2022 - pt is not interested in doing one 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 History of Procedures Date Ordered Description Order Status 11/25/2009 12:00 AM METABOLIC PANEL TOTAL CA Revi ewed 11/25/2009 12:00 AM LIPID PANEL Reviewed 11/25/2009 12:00 AM HEPATIC FUNCTION PANEL Review ed 11/25/2009 12:00 AM COMPLETE CBC W/AUTO DIFF WBC Reviewed 03/29/2015 12:00 AM AWV, subsequent visit, inc PP PS Reviewed 03/29/2015 12:00 AM PATIENT EDUCATION MATERIALS R jumana 03/29/2015 12:00 AM METABOLIC PANEL TOTAL CA Revi ewed 03/29/2015 12:00 AM COMPLETE CBC W/AUTO DIFF WBC Reviewed 03/29/2015 12:00 AM LIPID PANEL Reviewed 03/29/2015 12:00 AM HEPATIC FUNCTION PANEL Review ed 03/29/2015 12:00 AM ASSAY THYROID STIM HORMONE Re viewed 03/29/2015 12:00 AM URINALYSIS AUTO W/SCOPE Revie wed 03/29/2015 12:00 AM VITAMIN D 25 HYDROXY Reviewed 03/29/2015 12:00 AM URINE BACTERIA CULTURE Review ed 04/07/2015 12:00 AM DXA BONE DENSITY AXIAL Review ed 12/20/2009 12:00 AM MAMMOGRAM SCREENING Reviewed 12/09/2009 12:00 AM X-RAY EXAM NECK SPINE 2-3 VW Reviewed 12/13/2009 12:[address] NECK SPINE W/O DYE Reviewed 05/31/2015 12:00 AM VITAMIN D 25 HYDROXY Reviewed 11/25/2009 12:00 AM URINE CULTURE/COLONY COUNT Re viewed 12/09/2009 12:00 AM Prescriptions were either fax ed or printed. Reviewed 12/24/2009 12:00 AM MAMMOGRAM ONE BREAST Reviewed 11/25/2009 12:00 AM URINALYSIS NONAUTO W/O SCOPE Reviewed 04/05/2016 12:00 AM COMPLETE CBC W/AUTO DIFF WBC Reviewed 04/05/2016 12:00 AM URINALYSIS AUTO W/SCOPE Revie wed 04/05/2016 12:00 AM ASSAY THYROID STIM HORMONE Re viewed 04/05/2016 12:00 AM LIPID PANEL Reviewed 04/05/2016 12:00 AM COMPREHEN METABOLIC PANEL Rev iewed 04/05/2016 12:00 AM VITAMIN D 25 HYDROXY Reviewed 04/05/2016 12:00 AM URINE BACTERIA CULTURE Review ed 12/02/2017 12:00 AM DIAGNOSTIC COLONOSCOPY Review ed 10/30/2016 12:00 AM INFLUENZA ASSAY W/OPTIC Revie wed 07/05/2010 12:00 AM HEPATIC FUNCTION PANEL Review ed 04/20/2017 12:00 AM COMPLETE CBC W/AUTO DIFF WBC R eviewed 04/20/2017 12:00 AM URINALYSIS AUTO W/SCOPE Review ed 04/20/2017 12:00 AM MICROALBUMIN QUANTITATIVE Revi ewed 04/20/2017 12:00 AM ASSAY OF URINE CREATININE Revi ewed 04/20/2017 12:00 AM ASSAY THYROID STIM HORMONE Rev iewed 04/20/2017 12:00 AM VITAMIN D 25 HYDROXY Reviewed 04/20/2017 12:00 AM GLYCOSYLATED HEMOGLOBIN TEST R eviewed 04/20/2017 12:00 AM LIPID PANEL Reviewed 04/20/2017 12:00 AM COMPREHEN METABOLIC PANEL Revi ewed 04/20/2017 12:00 AM VITAMIN B-12 Reviewed 07/05/2010 12:00 AM ASSAY OF BLOOD LIPOPROTEIN Re viewed 01/04/2011 12:00 AM METABOLIC PANEL TOTAL CA Revi ewed 01/04/2011 12:00 AM HEPATIC FUNCTION PANEL Review ed 01/04/2011 12:00 AM LIPID PANEL Reviewed 01/04/2011 12:00 AM COMPLETE CBC W/AUTO DIFF WBC Reviewed 10/05/2010 12:00 AM VITAMIN D 25 HYDROXY Reviewe d 10/31/2017 12:00 AM DXA BONE DENSITY AXIAL Review ed 10/31/2017 12:00 AM Shared decision aid - Osteopo rosis ONLY. Reviewed 10/31/2017 12:00 AM US EXAM OF HEAD AND NECK Revi ewed 01/04/2011 12:00 AM URINE CULTURE/COLONY COUNT Re viewed 01/04/2011 12:00 AM URINALYSIS NONAUTO W/O SCOPE Reviewed 11/06/2007 12:00 AM DIAGNOSTIC COLONOSCOPY Review ed 02/13/2011 12:00 AM MAMMOGRAM SCREENING Reviewed 11/08/2007 12:00 AM OCCULT BLOOD FECES Reviewed 04/29/2018 12:00 AM VITAMIN D 25 HYDROXY Reviewed 04/29/2018 12:00 AM COMPLETE CBC W/AUTO DIFF WBC Reviewed 04/29/2018 12:00 AM ASSAY THYROID STIM HORMONE Re viewed 04/29/2018 12:00 AM LIPID PANEL Reviewed 04/29/2018 12:00 AM URINALYSIS AUTO W/SCOPE Revie wed 04/29/2018 12:00 AM COMPREHEN METABOLIC PANEL Rev iewed 07/11/2011 12:00 AM ASSAY OF BLOOD LIPOPROTEIN Re viewed 07/11/2011 12:00 AM METABOLIC PANEL TOTAL CA Revi ewed 07/11/2011 12:00 AM HEPATIC FUNCTION PANEL Review ed 07/11/2011 12:00 AM COMPLETE CBC W/AUTO DIFF WBC Reviewed 07/25/2011 12:00 AM HIDA scan (Hepatobil iary ductal system imaging with functional assessment) @ [facility] @ 0930. pt aware Reviewed 05/04/2008 12:00 AM HEPATIC FUNCTION PANEL Review ed 04/21/2019 12:00 AM BRIEF EMOTIONAL/BEHAV ASSMT Re viewed 04/21/2019 12:00 AM PHQ-9 Screen Reviewed 04/21/2019 12:00 AM HT MUSCLE IMAGE SPECT MULT Rev iewed 04/21/2019 12:00 AM CARDIOVASCULAR STRESS TEST Rev iewed 04/29/2019 12:00 AM URINALYSIS AUTO W/SCOPE Revie wed 04/29/2019 12:00 AM ASSAY THYROID STIM HORMONE Re viewed 04/29/2019 12:00 AM COMPREHEN METABOLIC PANEL Rev iewed 04/29/2019 12:00 AM VITAMIN D 25 HYDROXY Reviewed 04/29/2019 12:00 AM LIPID PANEL Reviewed 04/29/2019 12:00 AM COMPLETE CBC W/AUTO DIFF WBC Reviewed 05/05/2019 12:[address] THORAX W/DYE Reviewed 05/05/2019 12:[address] SOFT TISSUE NECK W/DYE Rev iewed 11/20/2019 12:[address] THORAX W/DYE Reviewed 11/20/2019 12:00 AM ASSAY OF UREA NITROGEN Reviewe d 07/03/2019 12:00 AM NCAMA Flu vaccine and admin R eviewed 07/03/2019 12:00 AM NCAMA Flu vaccine and admin R eviewed 07/03/2019 12:00 AM NCAMA Flucelvax Quadrivalent Reviewed 05/08/2008 12:00 AM COLLECTION VENOUS BLOOD VENIP UNCTURE Reviewed 03/18/2012 12:00 AM METABOLIC PANEL TOTAL CA Revie wed 03/18/2012 12:00 AM COMPLETE CBC W/AUTO DIFF WBC R eviewed 03/18/2012 12:00 AM URINALYSIS NONAUTO W/O SCOPE R eviewed 03/18/2012 12:00 AM LIPID PANEL Reviewed 03/18/2012 12:00 AM HEPATIC FUNCTION PANEL Reviewe d 03/18/2012 12:00 AM ASSAY THYROID STIM HORMONE Rev iewed 03/18/2012 12:00 AM URINE BACTERIA CULTURE Reviewe d 10/28/2019 9:53 AM BRIEF EMOTIONAL/BEHAV ASSMT Re viewed 10/28/2019 9:53 AM PHQ-9 Screen Reviewed 10/28/2019 9:53 AM FALL PLAN OF CARE DOCD Reviewe d 10/28/2019 12:00 AM MAMMOGRAM BOTH BREASTS Review ed 10/28/2019 12:00 AM Ultrasound of left breast Rev iewed 11/11/2019 12:00 AM Right breast ultrasound Revie wed 11/13/2019 12:00 AM BX BREAST 1ST LESION STRTCTC Reviewed 01/05/2020 12:00 AM TRANS CARE MGMT 14 DAY DISCH Reviewed 06/08/2020 12:00 AM GLYCOSYLATED HEMOGLOBIN TEST Reviewed 06/08/2020 12:00 AM ASSAY THYROID STIM HORMONE Re viewed 06/08/2020 12:00 AM COMPLETE CBC W/AUTO DIFF WBC Reviewed 06/08/2020 12:00 AM URINALYSIS AUTO W/SCOPE Revie wed 06/08/2020 12:00 AM LIPID PANEL Reviewed 06/08/2020 12:00 AM VITAMIN D 25 HYDROXY Reviewed 06/08/2020 12:00 AM COMPREHEN METABOLIC PANEL Rev iewed 06/15/2020 8:52 AM BRIEF EMOTIONAL/BEHAV ASSMT Rev iewed 06/15/2020 8:52 AM PHQ-9 Screen Reviewed 12/18/2008 12:00 AM MAMMOGRAM SCREENING Reviewed 12/09/2008 12:00 AM CYTOPATH C/V THIN LAYER Revie wed 12/09/2008 12:00 AM ECHO EXAM OF ABDOMEN Reviewed 12/26/2012 12:00 AM Annual Wellness Visit (AWV), initial; includes PPPS Reviewed 12/26/2012 12:00 AM MAMMOGRAM SCREENING Reviewed 12/26/2012 12:00 AM DXA BONE DENSITY AXIAL Review ed 03/28/2013 12:00 AM METABOLIC PANEL TOTAL CA Revi ewed 03/28/2013 12:00 AM HEPATIC FUNCTION PANEL Review ed 03/28/2013 12:00 AM ASSAY THYROID STIM HORMONE Re viewed 01/01/2013 12:00 AM OCCULT BLOOD FECES Reviewed 03/28/2013 12:00 AM COMPLETE CBC W/AUTO DIFF WBC Reviewed 03/28/2013 12:00 AM URINALYSIS AUTO W/SCOPE Revie wed 04/01/2013 12:00 AM Cardiology Consultation Revie wed 05/04/2008 12:00 AM ASSAY OF BLOOD LIPOPROTEIN Re viewed 02/05/2008 12:00 AM ASSAY OF BLOOD LIPOPROTEIN Re viewed 07/05/2010 12:00 AM DXA BONE DENSITY AXIAL Review ed 01/12/2022 2:47 PM BRIEF EMOTIONAL/BEHAV ASSMT Re viewed 01/12/2022 2:47 PM PHQ-9 Screen Reviewed 01/12/2022 12:00 AM Chest xray PA & Lat Reviewed 01/12/2022 12:00 AM X-RAY EXAM NECK SPINE 2-3 VW Reviewed 01/25/2022 12:00 AM TRANS CARE MGMT 14 DAY DISCH Reviewed 01/25/2022 12:00 AM SYMPTOM MGMNT PLAN CARE DOCD Reviewed 02/09/2022 12:00 AM ASSAY THYROID STIM HORMONE Re viewed 02/09/2022 12:00 AM COMPLETE CBC W/AUTO DIFF WBC Reviewed 02/09/2022 12:00 AM LIPID PANEL Reviewed 02/09/2022 12:00 AM COMPREHEN METABOLIC PANEL Rev iewed 02/09/2022 12:00 AM URINALYSIS AUTO W/SCOPE Revie wed 02/09/2022 12:00 AM VITAMIN D 25 HYDROXY Reviewed 02/16/2022 9:18 AM FALL PLAN OF CARE DOCD Reviewed 12/03/2008 12:00 AM METABOLIC PANEL TOTAL CA Revi ewed 12/03/2008 12:00 AM LIPID PANEL Reviewed 12/03/2008 12:00 AM HEPATIC FUNCTION PANEL Review ed 12/03/2008 12:00 AM URINALYSIS NONAUTO W/O SCOPE Reviewed 12/03/2008 12:00 AM COMPLETE CBC W/AUTO DIFF WBC Reviewed 05/22/2022 12:00 AM ADVNCD CARE PLAN 30 MIN Review ed 05/22/2022 12:00 AM Annual Wellness Visit, subsequ ent Reviewed 05/22/2022 8:58 AM BRIEF EMOTIONAL/BEHAV ASSMT Rev iewed 05/22/2022 8:58 AM PHQ-9 Screen Reviewed 05/22/2022 8:58 AM FALL PLAN OF CARE DOCD Reviewed 05/22/2022 12:00 AM DXA BONE DENSITY AXIAL Reviewe d 03/28/2013 12:00 AM LIPID PANEL Reviewed 02/17/2014 12:00 AM AWV, subsequent visit, inc PPP S Reviewed 03/30/2014 12:00 AM MAMMOGRAM SCREENING Reviewed 03/30/2014 12:00 AM COMPLETE CBC W/AUTO DIFF WBC Reviewed 03/30/2014 12:00 AM HEPATIC FUNCTION PANEL Review ed 03/30/2014 12:00 AM ASSAY THYROID STIM HORMONE Re viewed 03/30/2014 12:00 AM URINALYSIS AUTO W/SCOPE Revie wed 03/30/2014 12:00 AM METABOLIC PANEL TOTAL CA Revi ewed 03/30/2014 12:00 AM LIPID PANEL Reviewed 02/05/2008 12:00 AM HEPATIC FUNCTION PANEL Review ed 05/25/2009 12:00 AM Prescriptions were either fax ed or printed. Reviewed 05/19/2009 12:00 AM ASSAY OF BLOOD LIPOPROTEIN Rev iewed 05/19/2009 12:00 AM HEPATIC FUNCTION PANEL Reviewe d 07/27/2008 12:00 AM Bicillin CR Reviewed Results Summary Date and Description Results 11/08/2007 3:13 PM FOB 1 NEGATIVEFOB 2 NEGATIVEFOB 3 NEGATIVE 12/02/2007 12:00 AM Colon Benign 02/05/2008 8:31 AM AST 14.0 U/LDLDL 152 .10 mg/dLDLDL 152.10 mg/dLDBILI 0.30 mg/dLALP 68.0 U/LALT 15.0 U/LTBILI 0.80 mg/dLALB 4.20 g/dLALB 4.20 g/dLTP 6.90 g/dL 05/04/2008 10:11 AM TP 6.90 g/dLALT 18.0 U/LDLDL 93.20 mg/dLDLDL 93.20 mg/dLALP 71.0 U/LTBILI 1.20 mg/dLALB 4.40 g/dLALB 4.40 g/dLDBILI 0.30 mg/dLAST 15.0 U/L 12/03/2008 9:45 AM HGB 14.50 g/dLPLT 25 3.0 x10E3/uLSPEC GRAVITY 1.015UROBILINOGEN NEGATIVEEPI/HPF 15-30CREAT 0.70 mg/dLTP 6.90 g/dLCHOL 154.0 mg/dLCHOL 154.0 mg/dLBLOOD NEGATIVENITRITES NEGATIVEALP 66.0 U/LALT 19.0 U/LRDW 13.10 %_LYMPH 1.3_MPV 9.2LEUKOCYTES TRACEALB 4.50 g/dLALB 4.50 g/dLHCT 43.40 %MCV 85.90 fLTRIG 164.0 mg/dLLDL 91.60 mg/dLWBC 5.40 x10E3/uL_MID 0.5COLOR DARK YELLOWCOLOR DARK YELLOWALBUMIN NEGATIVEALBUMIN NEGATIVEBILIRUBIN 1+GLU 94.0 mg/dLCO2 26.80 mmol/LHDL 29.60 mg/dLCA 9.50 mg/dLK 4.50 mmol/LGRAN % 65.90 %_GRAN 3.6KETONES 1+RBC/HPF 0-2NA 140.10 mmol/LDBILI 0.40 mg/dLLYMPH % 24.40 %GLUCOSE NEGATIVEBACTERIA 1+CL 102.0 mmol/LCL 102.0 mmol/LAST 16.0 U/LTBILI 1.30 mg/dLVLDL 32.80 mg/dLVLDL 32.80 mg/dLMID % 9.60 %CLARITY CLEARPH 7.0PH 7.0TRICHOMONOS NONEBUN 9.0 mg/dLGFR 88.4GFR 88.4RBC 5.060 x10E6/uLMCH 28.60 pgWBC/HPF 2-6MCHC 33.40 g/dLMUCOUS 1+CARDIAC RISK 5.2 12/09/2008 12:00 AM SOURCE: [employer] EV. PAP: 2004REPORT STATUS: FINAL 05/19/2009 8:29 AM AST 19.0 U/LALB 4.40 g/dLALB 4.40 g/dLTBILI 1.0 mg/dLALP 67.0 U/LDLDL 94.10 mg/dLDLDL 94.10 mg/dLALT 16.0 U/LDBILI 0.40 mg/dLTP 7.20 g/dL 11/25/2009 8:00 AM WBC 5.90 x10E3/uLGR % 74.40 %LYM % 24.0 %MID % 1.60 %RBC 4.760 x10E6/uLHGB 14.40 g/dLHCT 43.20 %MCV 90.70 fLMCH 30.20 pgMCHC 33.30 g/dLRDW 12.70 %PLT 223.0 x10E3/uLGRAN # 4.4LYM # 1.4MID # 0.1MPV 8.5COLOR DK YELLOWCOLOR DK YELLOWCLARITY HAZYSPEC GRAVITY 1.020PH 7.0PH 7.0ALBUMIN 2+ALBUMIN 2+GLUCOSE NEGATIVEKETONES NEGATIVEBILIRUBIN TRACEBLOOD NEGATIVENITRITES NEGATIVEUROBILINOGEN NEGATIVELEUKOCYTES 2+WBC/HPF 10-20RBC/HPF 0-3EPI/HPF 15-30BACTERIA 2+MUCOUS 2+TRICHOMONOS NONEGLU 98.0 mg/dLBUN 18.0 mg/dLCREAT 0.70 mg/dLCA 9.40 mg/dLNA 141.40 mmol/LK 4.50 mmol/LCL 103.40 mmol/LCL 103.40 mmol/LCO2 26.10 mmol/LALB 4.40 g/dLALB 4.40 g/dLALP 71.0 U/LAST 14.0 U/LALT 20.0 U/LTBILI 1.30 mg/dLDBILI 0.30 mg/dLTP 7.10 g/dLCHOL 164.0 mg/dLCHOL 164.0 mg/dLTRIG 188.0 mg/dLHDL 29.90 mg/dLVLDL 37.60 mg/dLVLDL 37.60 mg/dLLDL 96.50 mg/dLCARDIAC RISK 5.5GFR 88.2GFR 88.2 07/05/2010 7:40 AM ALB 4.40 g/dLALB 4.4 0 g/dLALP 71.0 U/LAST 16.0 U/LALT 21.0 U/LTBILI 1.30 mg/dLDBILI 0.40 mg/dLTP 7.10 g/dLDLDL 117.30 mg/dLDLDL 117.30 mg/dL 10/05/2010 10:19 AM VITAMIN D, 25 OH TOT AL 35.0 ng/mLVITAMIN D, 25 OH, D2 <4 ng/mLVITAMIN D, 25 OH, D3 35.0 ng/mL 01/04/2011 8:12 AM WBC 6.10 x10E3/uLGR % 77.80 %LYM % 20.90 %MID % 1.30 %RBC 4.260 x10E6/uLHGB 13.0 g/dLHCT 38.30 %MCV 89.80 fLMCH 30.40 pgMCHC 33.90 g/dLRDW 13.60 %PLT 231.0 x10E3/uLGRAN # 4.7LYM # 1.3MID # 0.1MPV 8.9COLOR YELLOWCOLOR YELLOWCLARITY CLEARSPEC GRAVITY 1.015PH 6.5PH 6.5ALBUMIN NEGATIVEALBUMIN NEGATIVEGLUCOSE NEGATIVEKETONES NEGATIVEBILIRUBIN NEGATIVEBLOOD TRACENITRITES NEGATIVEUROBILINOGEN NEGATIVELEUKOCYTES 1+WBC/HPF 5-10RBC/HPF 0-3EPI/HPF 3-6BACTERIA 2+MUCOUS 4+TRICHOMONOS NONEGLU 98.0 mg/dLBUN 17.0 mg/dLCREAT 0.60 mg/dLCA 9.40 mg/dLNA 142.0 mmol/LK 4.30 mmol/LCL 102.60 mmol/LCL 102.60 mmol/LCO2 29.70 mmol/LALB 4.40 g/dLALB 4.40 g/dLALP 69.0 U/LAST 13.0 U/LALT 13.0 U/LTBILI 1.0 mg/dLDBILI 0.30 mg/dLTP 6.90 g/dLCHOL 183.0 mg/dLCHOL 183.0 mg/dLTRIG 175.0 mg/dLHDL 46.0 mg/dLVLDL 35.0 mg/dLVLDL 35.0 mg/dLLDL 102.0 mg/Mikayla CHOL/HDL 4.0GFR 105.0GFR 105.0 02/13/2011 12:00 AM Mammogram Assessment Category benign 07/11/2011 7:22 AM WBC 6.40 x10E3/uLGR % 75.80 %LYM % 20.60 %MID % 3.60 %RBC 4.490 x10E6/uLHGB 13.70 g/dLHCT 40.80 %MCV 91.0 fLMCH 30.60 pgMCHC 33.60 g/dLRDW 13.50 %PLT 225.0 x10E3/uLGRAN # 4.9LYM # 1.3MID # 0.2MPV 8.6GLU 93.0 mg/dLBUN 13.0 mg/dLCREAT 0.50 mg/dLCA 9.30 mg/dLNA 141.80 mmol/LK 4.10 mmol/LCL 102.90 mmol/LCL 102.90 mmol/LCO2 28.90 mmol/LALB 4.30 g/dLALB 4.30 g/dLALP 69.0 U/LAST 14.0 U/LALT 14.0 U/LTBILI 1.10 mg/dLDBILI 0.30 mg/dLTP 6.70 g/dLGFR 129.3GFR 129.3DLDL 110.0 mg/dLDLDL 110.0 mg/dL 03/18/2012 8:38 AM WBC 6.0 x10E3/uLGR % 68.30 %LYM % 24.20 %MID % 7.50 %RBC 4.490 x10E6/uLHGB 13.40 g/dLHCT 40.60 %MCV 90.30 fLMCH 29.70 pgMCHC 32.90 g/dLRDW 13.80 %PLT 224.0 x10E3/uLGRAN # 4.1LYM # 1.5MID # 0.4MPV 8.4COLOR YELLOWCOLOR YELLOWCLARITY HAZYSPEC GRAVITY 1.020PH 8.5PH 8.5ALBUMIN NEGATIVEALBUMIN NEGATIVEGLUCOSE NEGATIVEKETONES NEGATIVEBILIRUBIN NEGATIVEBLOOD NEGATIVENITRITES NEGATIVEUROBILINOGEN 1.0LEUKOCYTES 1+WBC/HPF 5-10RBC/HPF 0-2EPI/HPF 10-20BACTERIA 3+MUCOUS NONE SEENCASTS/LPF NONE SEENCRYSTALS NONE SEENYEAST NONE SEENTRICHOMONOS NONE SEENGLU 98.0 mg/dLBUN 9.0 mg/dLCREAT 0.60 mg/dLCA 9.70 mg/dLNA 141.60 mmol/LK 4.80 mmol/LCL 103.90 mmol/LCL 103.90 mmol/LCO2 31.20 mmol/LALB 4.50 g/dLALB 4.50 g/dLALP 85.0 U/LAST 14.0 U/LALT 17.0 U/LTBILI 1.10 mg/dLDBILI 0.40 mg/dLTP 6.90 g/dLCHOL 179.0 mg/dLCHOL 179.0 mg/dLTRIG 167.0 mg/dLHDL 39.0 mg/dLVLDL 33.40 mg/dLVLDL 33.40 mg/dLLDL 106.60 mg/Mikayla CHOL/HDL 4.6GFR 104.4GFR 104.4TSH 2.220 mIU/L 01/01/2013 10:51 AM FOB 1 NEGATIVEFOB 2 NEGATIVEFOB 3 NEGATIVE 03/28/2013 7:53 AM WBC 6.90 x10E3/uLGR % 72.20 %LYM % 22.50 %MID % 5.30 %RBC 4.810 x10E6/uLHGB 14.0 g/dLHCT 43.20 %MCV 89.90 fLMCH 29.10 pgMCHC 32.40 g/dLRDW 14.40 %PLT 252.0 x10E3/uLGRAN # 5.0LYM # 1.6MID # 0.4MPV 8.7COLOR YELLOWCOLOR YELLOWCLARITY CLEARSPEC GRAVITY 1.020PH 5.5PH 5.5ALBUMIN NEGATIVEALBUMIN NEGATIVEGLUCOSE NEGATIVEKETONES NEGATIVEBILIRUBIN NEGATIVEBLOOD NEGATIVENITRITES NEGATIVEUROBILINOGEN 1.0LEUKOCYTES 1+WBC/HPF 2-6RBC/HPF 0-1EPI/HPF 5-12BACTERIA RAREMUCOUS RARETRICHOMONOS NONEGLU 94.0 mg/dLBUN 13.0 mg/dLCREAT 0.60 mg/dLCA 9.50 mg/dLNA 141.20 mmol/LK 4.40 mmol/LCL 104.10 mmol/LCL 104.10 mmol/LCO2 29.10 mmol/LALB 4.50 g/dLALB 4.50 g/dLALP 66.0 U/LAST 5.0 U/LALT 5.0 U/LTBILI 1.40 mg/dLDBILI 0.40 mg/dLTP 6.90 g/dLCHOL 178.0 mg/dLCHOL 178.0 mg/dLTRIG 157.0 mg/dLHDL 43.0 mg/dLVLDL 31.40 mg/dLVLDL 31.40 mg/dLLDL 103.60 mg/Mikayla CHOL/HDL 4.1TSH 1.450 mIU/L 04/01/2013 12:00 AM Dexa osteopenia 03/30/2014 7:23 AM WBC 7.10 x10E3/uLGR % 72.40 %LYM % 21.80 %MID % 5.80 %RBC 4.720 x10E6/uLHGB 13.50 g/dLHCT 41.50 %MCV 88.0 fLMCH 28.70 pgMCHC 32.60 g/dLRDW 13.80 %PLT 221.0 x10E3/uLGRAN # 5.1LYM # 1.5MID # 0.4MPV 8.5COLOR DARK YELLOWCOLOR DARK YELLOWCLARITY HAZYSPEC GRAVITY 1.015PH 7.0PH 7.0ALBUMIN TRACEALBUMIN TRACEGLUCOSE NEGATIVEKETONES TRACEBILIRUBIN NEGATIVEBLOOD NEGATIVENITRITES NEGATIVEUROBILINOGEN NEGATIVELEUKOCYTES 1+WBC/HPF 2-6RBC/HPF 0-2EPI/HPF 5-15BACTERIA RAREMUCOUS 3+CASTS/LPF NONE SEENCRYSTALS NONE SEENYEAST NONE SEENTRICHOMONOS NONE SEENGLU 94.0 mg/dLBUN 9.0 mg/dLCREAT 0.80 mg/dLCA 9.30 mg/dLNA 141.10 mmol/LK 4.20 mmol/LCL 102.20 mmol/LCL 102.20 mmol/LCO2 31.10 mmol/LALB 4.10 g/dLALB 4.10 g/dLALP 74.0 U/LAST 8.0 U/LALT 2.0 U/LTBILI 1.10 mg/dLDBILI 0.40 mg/dLTP 6.60 g/dLCHOL 164.0 mg/dLCHOL 164.0 mg/dLTRIG 234.0 mg/dLHDL 41.0 mg/dLVLDL 46.80 mg/dLVLDL 46.80 mg/dLLDL 76.20 mg/Mikayla CHOL/HDL 4.0TSH 2.510 mIU/L 03/29/2015 8:15 AM WBC 7.10 x10E3/uLGR % 75.80 %LYM % 20.60 %MID % 3.60 %RBC 4.940 x10E6/uLHGB 14.20 g/dLHCT 43.30 %MCV 87.80 fLMCH 28.90 pgMCHC 32.90 g/dLRDW 14.10 %PLT 209.0 x10E3/uLGRAN # 5.4LYM # 1.5MID # 0.3MPV 8.8COLOR DARK YELLOWCOLOR DARK YELLOWCLARITY HAZYSPEC GRAVITY 1.030PH 5.5PH 5.5ALBUMIN NEGATIVEALBUMIN NEGATIVEGLUCOSE NEGATIVEKETONES NEGATIVEBILIRUBIN 1+BLOOD NEGATIVENITRITES NEGATIVEUROBILINOGEN NEGATIVELEUKOCYTES 2+WBC/HPF 10-20RBC/HPF 0-5EPI/HPF 15-30BACTERIA 3+MUCOUS 3+CASTS/LPF NONE SEENCRYSTALS Amorphous Material 1+YEAST NONE SEENTRICHOMONOS NONE SEENGLU 97.0 mg/dLBUN 14.0 mg/dLCREAT 0.70 mg/dLCA 9.50 mg/dLNA 142.10 mmol/LK 4.30 mmol/LCL 103.50 mmol/LCL 103.50 mmol/LCO2 32.0 mmol/LALB 4.30 g/dLALB 4.30 g/dLALP 72.0 U/LAST 9.0 U/LALT 7.0 U/LTBILI 1.30 mg/dLDBILI 0.40 mg/dLTP 7.0 g/dLCHOL 161.0 mg/dLCHOL 161.0 mg/dLTRIG 181.0 mg/dLHDL 40.0 mg/dLVLDL 36.20 mg/dLVLDL 36.20 mg/dLLDL 84.80 mg/Mikayla CHOL/HDL 4.0TSH 1.910 mIU/L 03/29/2015 8:16 AM VITAMIN D,25-OH,TOTA L,IA 9.0 ng/mL 05/31/2015 10:52 AM VIT D 19.40 ng/mL 04/05/2016 7:46 AM WBC 6.40 x10E3/uLGR % 70.10 %LYM % 24.10 %MID % 5.80 %RBC 5.060 x10E6/uLHGB 14.60 g/dLHCT 44.10 %MCV 87.20 fLMCH 29.0 pgMCHC 33.20 g/dLRDW 13.60 %PLT 205.0 x10E3/uLGRAN # 4.5LYM # 1.5MID # 0.4MPV 8.9COLOR YELLOWCOLOR YELLOWCLARITY HAZYSPEC GRAVITY 1.030PH 5.5PH 5.5ALBUMIN NEGATIVEALBUMIN NEGATIVEGLUCOSE NEGATIVEKETONES NEGATIVEBILIRUBIN 2+BLOOD NEGATIVENITRITES NEGATIVEUROBILINOGEN NEGATIVELEUKOCYTES 1+WBC/HPF 5-10RBC/HPF 0-5EPI/HPF 1-6BACTERIA 2+MUCOUS 3+CASTS/LPF NONECRYSTALS NONEYEAST NONETRICHOMONOS NONEGLU 111.0 mg/dLBUN 18.0 mg/dLCREAT 0.80 mg/dLALB 4.20 g/dLALB 4.20 g/dLALP 73.0 U/LAST 10.0 U/LALT 8.0 U/LTBILI 1.0 mg/dLCA 9.90 mg/dLTP 6.90 g/dLNA 140.80 mmol/LK 4.0 mmol/LCL 101.80 mmol/LCL 101.80 mmol/LCO2 30.40 mmol/LCHOL 170.0 mg/dLCHOL 170.0 mg/dLTRIG 162.0 mg/dLHDL 38.0 mg/dLVLDL 32.40 mg/dLVLDL 32.40 mg/dLLDL 99.60 mg/Mikayla CHOL/HDL 4.5GFR 74.1GFR 74.1TSH 3.060 mIU/LVIT D 17.07 ng/mL 10/30/2016 11:14 AM INFLUENZA POSITIVE A NEGATIVE B 04/20/2017 7:44 AM VITAMIN B12 301.0 pg /mLWBC 6.30 x10E3/uLGR % 75.50 %LYM % 20.50 %MID % 4.0 %RBC 5.080 x10E6/uLHGB 14.10 g/dLHCT 44.50 %MCV 87.50 fLMCH 27.80 pgMCHC 31.80 g/dLRDW 13.90 %PLT 205.0 x10E3/uLGRAN # 4.8LYM # 1.3MID # 0.3MPV 9.3COLOR DARK YELLOWCOLOR DARK YELLOWCLARITY HAZYSPEC GRAVITY 1.015PH 7.0PH 7.0ALBUMIN NEGATIVEALBUMIN NEGATIVEGLUCOSE NEGATIVEKETONES NEGATIVEBILIRUBIN NEGATIVEBLOOD NEGATIVENITRITES NEGATIVEUROBILINOGEN NEGATIVELEUKOCYTES NEGATIVEWBC/HPF 0-3RBC/HPF 0-3EPI/HPF 10-20BACTERIA 2+MUCOUS 2+CASTS/LPF NONE SEENCRYSTALS NONE SEENYEAST NONE SEENTRICHOMONOS NONE SEENGLU 110.0 mg/dLBUN 10.0 mg/dLCREAT 0.80 mg/dLALB 4.10 g/dLALB 4.10 g/dLALP 64.0 U/LAST 12.0 U/LALT 12.0 U/LTBILI 1.30 mg/dLCA 9.40 mg/dLTP 6.80 g/dLNA 138.60 mmol/LK 4.20 mmol/LCL 101.70 mmol/LCL 101.70 mmol/LCO2 30.90 mmol/LCHOL 169.0 mg/dLCHOL 169.0 mg/dLTRIG 201.0 mg/dLHDL 37.0 mg/dLVLDL 40.20 mg/dLVLDL 40.20 mg/dLLDL 91.80 mg/Mikayla CHOL/HDL 4.6GFR 73.9GFR 73.9HGB A1C 5.80 %MEAN BLOOD GLU 119.80 mg/dLTSH 2.290 mIU/LMICROALBUMIN 9.90 ug/mLCREATININE 219.70 mg/dLALB:CREAT 4.5VIT D 16.93 ng/mL 04/25/2017 1:52 PM Fall Risk Assessment With Handout Performed 10/31/2017 11:29 AM Fall Risk Assessment With Handout Performed 04/29/2018 7:30 AM WBC 7.60 x10E3/uLGR % 77.30 %LYM % 21.30 %MID % 1.40 %RBC 5.210 x10E6/uLHGB 15.0 g/dLHCT 47.60 %MCV 91.50 fLMCH 28.80 pgMCHC 31.50 g/dLRDW 13.80 %PLT 246.0 x10E3/uLGRAN # 5.9LYM # 1.6MID # 0.1MPV 9.1COLOR Dk YellowCOLOR Dk YellowCLARITY CLEARSPEC GRAVITY 1.030PH 5.5PH 5.5ALBUMIN NEGATIVEALBUMIN NEGATIVEGLUCOSE NEGATIVEKETONES NEGATIVEBILIRUBIN 1+BLOOD NEGATIVENITRITES NEGATIVEUROBILINOGEN NEGATIVELEUKOCYTES NEGATIVEWBC/HPF 0-3RBC/HPF 0-2EPI/HPF 0-5BACTERIA RAREMUCOUS 3+CASTS/LPF NONECRYSTALS NONEYEAST NONETRICHOMONOS NONEGLU 102.0 mg/dLBUN 11.0 mg/dLCREAT 0.80 mg/dLALB 4.30 g/dLALB 4.30 g/dLALP 72.0 U/LAST 3.0 U/LALT 0.0 U/LTBILI 1.0 mg/dLCA 9.40 mg/dLTP 6.80 g/dLNA 136.0 mmol/LK 4.20 mmol/LCL 100.40 mmol/LCL 100.40 mmol/LCO2 30.70 mmol/LCHOL 165.0 mg/dLCHOL 165.0 mg/dLTRIG 216.0 mg/dLHDL 42.0 mg/dLVLDL 43.20 mg/dLVLDL 43.20 mg/dLLDL 79.80 mg/Mikayla CHOL/HDL 3.9GFR 73.7GFR 73.7TSH 2.820 mIU/LVIT D 11.61 ng/mL 04/29/2018 3:15 PM Overall PHQ9 Score 2 1 - Major Severe 04/21/2019 1:49 PM Overall PHQ9 Score 1 8 - Major Moderatly Severe 04/29/2019 8:36 AM WBC 7.60 x10E3/uLGR % 74.60 %LYM % 21.90 %MID % 3.50 %RBC 4.90 x10E6/uLHGB 14.0 g/dLHCT 42.60 %MCV 87.0 fLMCH 28.60 pgMCHC 32.90 g/dLRDW 14.10 %PLT 217.0 x10E3/uLGRAN # 5.7LYM # 1.7MID # 0.3MPV 9.0COLOR YELLOWCOLOR YELLOWCLARITY HAZYSPEC GRAVITY 1.025PH 6.0PH 6.0ALBUMIN NEGATIVEALBUMIN NEGATIVEGLUCOSE NEGATIVEKETONES NEGATIVEBILIRUBIN 1+BLOOD NEGATIVENITRITES NEGATIVEUROBILINOGEN NEGATIVELEUKOCYTES NEGATIVEWBC/HPF 3-6RBC/HPF 0-5EPI/HPF 40-60BACTERIA 1+MUCOUS 4+CASTS/LPF NONECRYSTALS NONEYEAST NONETRICHOMONOS NONEGLU 108.0 mg/dLBUN 15.0 mg/dLCREAT 0.70 mg/dLALB 4.60 g/dLALB 4.60 g/dLALP 73.0 U/LAST 8.0 U/LALT 0.0 U/LTBILI 1.10 mg/dLCA 10.10 mg/dLTP 7.20 g/dLNA 140.70 mmol/LK 4.30 mmol/LCL 100.70 mmol/LCL 100.70 mmol/LCO2 28.10 mmol/LCHOL 165.0 mg/dLCHOL 165.0 mg/dLTRIG 179.0 mg/dLHDL 40.0 mg/dLVLDL 35.80 mg/dLVLDL 35.80 mg/dLLDL 89.20 mg/dLRF 4.1GFR 85.8GFR 85.8TSH 2.190 mIU/LVIT D 16.77 ng/mL 05/05/2019 9:12 AM Fall Risk Assessment With Handout Performed 10/28/2019 9:48 AM Risk Assessment for Falls Performed 10/28/2019 9:53 AM Fall Risk Assessment With Handout Performed 06/08/2020 8:24 AM WBC 7.60 x10E3/uLGR % 74.0 %LYM % 17.0 %MID % 9.0 %RBC 4.780 x10E6/uLHGB 13.60 g/dLHCT 41.20 %MCV 86.20 fLMCH 28.40 pgMCHC 32.90 g/dLRDW 15.50 %PLT 237.0 x10E3/uLGRAN # 5.6LYM # 1.3MID # 0.7MPV 8.6COLOR YELLOWCOLOR YELLOWCLARITY CLEARSPEC GRAVITY 1.025PH 6.0PH 6.0ALBUMIN NEGATIVEALBUMIN NEGATIVEGLUCOSE NEGATIVEKETONES NEGATIVEBILIRUBIN NEGATIVEBLOOD NEGATIVENITRITES NEGATIVEUROBILINOGEN NEGATIVELEUKOCYTES NEGATIVEWBC/HPF 0-3RBC/HPF 0-2EPI/HPF 0-2BACTERIA RAREMUCOUS RARECASTS/LPF NONECRYSTALS NONEYEAST NONETRICHOMONOS NONEGLU 115.0 mg/dLBUN 10.0 mg/dLCREAT 0.70 mg/dLALB 4.40 g/dLALB 4.40 g/dLALP 63.0 U/LAST 12.0 U/LALT 5.0 U/LTBILI 1.30 mg/dLCA 9.60 mg/dLTP 6.90 g/dLNA 141.70 mmol/LK 4.20 mmol/LCL 101.70 mmol/LCL 101.70 mmol/LCO2 34.20 mmol/LCHOL 181.0 mg/dLCHOL 181.0 mg/dLTRIG 224.0 mg/dLHDL 44.0 mg/dLVLDL 44.80 mg/dLVLDL 44.80 mg/dLLDL 92.20 mg/dLRF 4.1GFR 85.6GFR 85.6HGB A1C 6.0 %MEAN BLOOD GLU 125.50 mg/dLTSH3 2.4460 mIU/LVIT D 23.93 ng/mL 06/15/2020 8:52 AM Overall PHQ9 Score 1 2 -Minor 08/04/2020 3:58 PM Mammogram Assessment Category benign 01/12/2022 2:43 PM Weight For Length Pe rcentile 0.1 {percentile}Body Mass Index Percentile for Age and Sex 0.1 {percentile} 01/12/2022 2:47 PM Overall PHQ9 Score 1 3 - Minor 02/09/2022 7:26 AM WBC 7.0 x10E3/uLGR % 65.730 %LYM % 23.250 %EOS % 3.35 %BASO% 0.30 %RBC 4.990 x10E6/uLHGB 14.50 g/dLHCT 43.30 %MCV 86.70 fLMCH 29.10 pgMCHC 33.60 g/dLRDW 13.70 %PLT 198.0 x10E3/uLGRAN # 4.6 x10E3/uLLYM # 1.6 %MONO% 7.4 %MONO# 0.5 x10E3/uLMPV 10.2 fLEOS # 0.2 x10E3/uLBASO # 0.0 x10E3/uLCOLOR YELLOWCOLOR YELLOWCLARITY CLEARSPEC GRAVITY 1.030PH 5.5PH 5.5ALBUMIN NEGATIVE g/dLALBUMIN NEGATIVE g/dLGLUCOSE NEGATIVEKETONES NEGATIVEBILIRUBIN 1+BLOOD NEGATIVENITRITES NEGATIVEUROBILINOGEN NEGATIVE mg/dLLEUKOCYTES NEGATIVEWBC/HPF 0-3RBC/HPF 0-2EPI/HPF 0-3 /HPFBACTERIA RAREMUCOUS RARECASTS/LPF NONECRYSTALS NONEYEAST NONETRICHOMONOS NONEGLU 104.0 mg/dLBUN 20.0 mg/dLCREAT 0.90 mg/dLALB 4.30 g/dLALB 4.30 g/dLALP 94.0 IU/LAST 22.0 IU/LALT 13.0 IU/LTBILI 1.20 mg/dLCA 10.0 mg/dLTP 7.10 g/dLNA 140.50 mmol/LK 4.40 mmol/LCL 101.20 mmol/LCL 101.20 mmol/LCO2 35.80 mmol/LCHOL 163.0 %CHOL 163.0 %TRIG 160.0 mg/dLHDL 36.0 mg/dLVLDL 32.0 mg/dLVLDL 32.0 mg/dLLDL 95.0 mg/dLRF 4.5 RatioGFR 63.9 mL/min/1.73m??GFR 63.9 mL/min/1.73m??TSH3 2.9840 mIU/LVIT D 40.26 ng/mL/h 02/16/2022 9:16 AM Weight For Length Pe rcentile 0.1 {percentile}Body Mass Index Percentile for Age and Sex 0.1 {percentile} 02/16/2022 9:18 AM Fall Risk Assessment With Handout Performed 04/05/2022 12:00 AM Mammogram Assessment Category [email or web address] 05/22/2022 8:58 AM PHQ-2 4- Increased R iskOverall PHQ9 Score 15 - Major Moderatly SevereFall Risk Assessment With Handout Performed 05/22/2022 9:37 AM Dexa osteoporosis -2 .5 History Of Immunizations Name Date Admin Mfg Name Mfg Code Trade Name Lot# Route Inj Vis Given Vis Pub CVX Pneumococcal 013 Not Entered NE Not Entered Not Entered Not Entered 013 07/20 9 33 Influenza 014 Not Entered NE FLUZONE-HIGH DOSE [id number] Intramuscula r Right Arm 2013 141 Influenza 2014 Not Entered NE FLUZONE-HIGH DOSE [id number] Intramuscula r Left Arm 2014 141 Prevnar 13 2014 Not Entered NE PREVNAR 13 [id number] Intramuscula r Left Arm 2014 133 Influenza 2015 Not Entered NE FLUZONE-HIGH DOSE [id number] Intramuscula r Left Arm 2015 141 Pneumococcal 017 Not Entered NE Not Entered Not Entered Not Entered 017 2022 33 Influenza 017 Not Entered NE Not Entered Not Entered Not Entered 017 2022 135 Influenza 018 Not Entered NE FLUZONE-HIGH DOSE Not Entered Not Entered 2017 135 Influenza 019 Seq[employer] SEQ flucelvax, quadrivalent [id number] Intramuscula r Left Deltoid 019 2022 158 Influenza 020 Not Entered NE Flublok Not Entered Not Entered 020 2022 158 Influenza 2020 Seq[employer] SEQ flucelvax, quadrivalent [id number] Not Entered Not Entered 2020 135 COVID Pfizer 021 [email or web address] PFR Not Entered [id number] Not Entered Not Entered 021 2022 208 COVID Pfizer 021 [employer] PFR Not Entered [id number] Not Entered Not Entered 021 2022 208 COVID Pfizer 2020 [employer] PFR Not Entered [facility] 15 Not Entered Not Entered 2020 208 Influenza 022 Not Entered NE Not Entered Not Entered Not Entered 022 2022 158 History of Past Illness Name Date of Onset Comments Dyslipidemia Nov 06 2007 8:35AM Hypertension, Benign Essential Nov 06 2007 8:35A M Neuralgia Nov 06 2007 8:35AM Screening for colon cancer Nov 06 2007 8:35AM Hypertension, Benign Essential Nov 19 2007 1:43PM Benign Essential Hypertension Dyslipidemia Apnea Dyslipidemia Feb 07 2008 9:15AM Hyperlipidemia May 12 2008 8:28AM Hypertension, Benign Essential May 12 2008 8:28A M GERD May 12 2008 8:28AM Abdominal Pain, Generalized Jun 25 2008 1:38PM Lumbar Sprain/Strain Jun 25 2008 1:38PM Sinusitis, Acute Jul 27 2008 8:06AM muscle Sprain/Strain- neck / shoulder Sep 08 200 8 1:31PM Bronchitis, Acute Sep 24 2008 1:32PM Coronary Artery Disease Myocardial Infarction around 2005 treated me ramon Feliz Routine gynecological examination Dec 09 2008 9: 57AM Screening Examination for [place] Cancer Dec 09 2008 9:57AM Benign Essential Hypertension Dec 09 2008 9:57AM Depression Dec 09 2008 9:57AM Dyslipidemia Dec 09 2008 9:57AM GERD Dec 09 2008 9:57AM Abdominal Pain, RUQ Dec 09 2008 9:57AM Menopausal syndrome Dyslipidemia May 25 2009 8:03AM Benign Essential Hypertension May 25 2009 8:03AM Depression May 25 2009 8:03AM Osteopenia of multiple sites 07/05/2010 Benign Essential Hypertension Dec 09 2009 10:35A M Depression Dec 09 2009 10:35AM Dyslipidemia Dec 09 2009 10:35AM Cervicalgia Dec 09 2009 10:35AM Paresthesia/numbness/tingling Dec 09 2009 10:35A M Malignant neoplasm of left f emale breast, unspecified estrogen receptor status, unspecified site of breast 06/16/2020 Infiltrating ductal Benign Essential Hypertension Jul 07 2010 10:22A M Dyslipidemia Jul 07 2010 10:22AM Osteopenia Jul 07 2010 10:22AM Benign Essential Hypertension Oct 05 2010 10:38A M Resolved Chest Pain- nml car diac work up Oct 05 2010 10:38AM Moderate episode of recurren t major depressive disorder 01/12/2022 Class 3 obesity due to exces s calories with body mass index (BMI) of 40.0 to 44.9 in adult, unspecified whether serious comorbidity present 01/12/2022 Vitamin D deficiency 01/12/2022 Medial meniscus tear 02/09/22 GERD (gastroesophageal reflux disease) Age related osteoporosis 05/22/2022 Ambulates with cane Morbid Obesity Benign Essential Hypertension Jan 10 2011 8:58AM Depression Jan 10 2011 8:58AM Dyslipidemia Jan 10 2011 8:58AM Osteopenia Jan 10 2011 8:58AM Benign Essential Hypertension Jul 20 2011 2:20PM Depression Jul 20 2011 2:20PM Dyslipidemia Jul 20 2011 2:20PM GERD Jul 20 2011 2:20PM Osteopenia Jul 20 2011 2:20PM Anxiety Disorder Jul 20 2011 2:20PM Abdominal Pain, RUQ Jul 20 2011 2:20PM Abdominal Pain, RUQ Jul 27 2011 2:58PM Benign Essential Hypertension Mar 20 2012 10:52AM Depression Mar 20 2012 10:52AM Dyslipidemia Mar 20 2012 10:52AM Osteopenia Mar 20 2012 10:52AM Actinic Keratosis Mar 20 2012 10:52AM General Medical Exam, Adult Dec 26 2012 8:24AM Body Mass Index [BMI]; body mass index between 30-39, adult; body mass index 38.0-38.9, adult Dec 26 2012 8:24AM Benign Essential Hypertension Mar 17 2013 2:17PM Dyslipidemia Mar 17 2013 2:17PM Encounter for Long-term (cur rent) use of other medications other and unspecified aftercare Mar 17 2013 2:17PM Benign Essential Hypertension Apr 01 2013 8:43AM Dyslipidemia Apr 01 2013 8:43AM Osteopenia Apr 01 2013 8:43AM Coronary Artery Disease Apr 01 2013 8:43AM Obesity Apr 01 2013 8:43AM Cervicalgia Apr 01 2013 8:43AM General Medical Exam, Adult Feb 17 2014 10:24AM Body Mass Index 40.0-44.9, adult Feb 17 2014 10:2 4AM Screening Mammogram Feb 17 2014 10:24AM Screening Mammogram Feb 17 2014 11:34AM Benign Essential Hypertension Mar 24 2014 8:20AM Dyslipidemia Mar 24 2014 8:20AM Osteopenia Mar 24 2014 8:20AM Encounter for Long-term (cur rent) use of other medications other and unspecified aftercare Mar 24 2014 8:20AM Coronary Artery Disease Mar 30 2014 2:50PM Obesity Mar 30 2014 2:50PM Benign Essential Hypertension Mar 30 2014 2:50PM Depression Mar 30 2014 2:50PM Dyslipidemia Mar 30 2014 2:50PM Cervicalgia Mar 30 2014 2:50PM Benign Essential Hypertension Sep 28 2014 8:25AM Medication changed to therap eutic equivalent on formulary Sep 28 2014 8:25AM Coronary Artery Disease Mar 22 2015 7:11AM Benign Essential Hypertension Mar 22 2015 7:11AM Dyslipidemia Mar 22 2015 7:11AM Osteopenia Mar 22 2015 7:11AM Encounter for long-term (cur rent) drug use Mar 22 2015 7:11AM General Medical Exam, Adult Mar 29 2015 8:21AM Body Mass Index 40.0-44.9, adult Mar 29 2015 8:2 1AM Screening Mammogram Mar 29 2015 8:21AM Acute UTI Mar 22 2015 7:11AM Osteopenia Apr 07 2015 2:56PM Coronary Artery Disease Apr 07 2015 3:34PM Obesity Apr 07 2015 3:34PM Benign Essential Hypertension Apr 07 2015 3:34PM Depression Apr 07 2015 3:34PM Dyslipidemia Apr 07 2015 3:34PM Cervicalgia Apr 07 2015 3:34PM Osteopenia May 20 2015 7:58AM Vitamin D deficiency May 20 2015 7:58AM Spinal stenosis of lumbar region Sep 02 2015 9:3 7AM Fall, initial encounter Sep 02 2015 9:37AM Limb weakness Sep 02 2015 9:37AM Morbid (severe) obesity due to excess calories Sep 02 2015 9:37AM Benign Essential Hypertension Oct 06 2015 3:05PM Fall, subsequent encounter Oct 06 2015 3:05PM Benign diastolic hypertension Mar 27 2016 10:17A M Dyslipidemia Mar 27 2016 10:17AM Low vitamin D level Mar 27 2016 10:17AM Drug therapy Mar 27 2016 10:17AM Acute UTI Mar 27 2016 10:17AM Hyperglycemia Apr 12 2016 8:22AM Coronary Artery Disease Apr 12 2016 8:22AM Obesity Apr 12 2016 8:22AM Benign Essential Hypertension Apr 12 2016 8:22AM Depression Apr 12 2016 8:22AM Dyslipidemia Apr 12 2016 8:22AM Gait instability Apr 12 2016 8:22AM Influenza A Oct 30 2016 11:03AM Coronary artery disease Mar 30 2017 4:05PM Benign Essential Hypertension Mar 30 2017 4:05PM Dyslipidemia Mar 30 2017 4:05PM Disorder of bone density and structure, unspecified Mar 30 2017 4:05PM Drug therapy continued Mar 30 2017 4:05PM Elevated blood sugar Mar 30 2017 4:05PM Hyperglycemia Apr 25 2017 1:52PM Coronary Artery Disease Apr 25 2017 1:52PM Obesity Apr 25 2017 1:52PM Benign Essential Hypertension Apr 25 2017 1:52PM Depression Apr 25 2017 1:52PM Dyslipidemia Apr 25 2017 1:52PM Gait instability Apr 25 2017 1:52PM Osteopenia of multiple sites Oct 31 2017 11:02AM Osteopenia of multiple sites Oct 31 2017 11:29AM Cervical lymphadenopathy Oct 31 2017 11:29AM Neck pain Oct 31 2017 11:29AM Other obesity due to excess calories Oct 31 2017 11:29AM Body mass index (BMI) 40.0-44.9, adult Oct 31 11:29AM Benign Essential Hypertension Oct 31 2017 11:29A M Benign Essential Hypertension Nov 09 2017 2:30PM Cervical lymphadenopathy Nov 09 2017 2:30PM Neck pain Nov 09 2017 2:30PM Benign Essential Hypertension Apr 16 2018 4:20PM Dyslipidemia Apr 16 2018 4:20PM Drug therapy Apr 16 2018 4:20PM Disorder of bone density and structure, unspecified Apr 16 2018 4:20PM Other obesity due to excess calories Apr 29 2018 3:15PM Body mass index (BMI) 40.0-44.9, adult Apr 29 3:15PM Benign Essential Hypertension Apr 29 2018 3:15PM Osteopenia of multiple sites Apr 29 2018 3:15PM Neck pain Apr 29 2018 3:15PM Severe episode of recurrent major depressive disorder, without psychotic features Apr 29 2018 3:15PM Chest pain, unspecified type Apr 21 2019 10:32AM Shortness of breath Apr 21 2019 10:32AM Benign Essential Hypertension Apr 21 2019 1:37PM Dyslipidemia Apr 21 2019 1:37PM Drug therapy Apr 21 2019 1:37PM Vitamin D deficiency Apr 21 2019 1:37PM Other obesity due to excess calories May 05 2019 9:12AM Body mass index (BMI) 40.0-44.9, adult May 05 19 9:12AM Benign Essential Hypertension May 05 2019 9:12AM Severe episode of recurrent major depressive disorder, without psychotic features May 05 2019 9:12AM Osteopenia of multiple sites May 05 2019 9:12AM Neck pain May 05 2019 9:12AM Vitamin D Deficiency May 05 2019 9:12AM Cervical lymphadenopathy May 05 2019 9:12AM Cough in adult May 05 2019 9:12AM Dyspnea on exertion May 05 2019 9:12AM Pulmonary nodule May 20 2019 4:11PM Other obesity due to excess calories Jun 05 2019 9:18AM Body mass index (BMI) 40.0-44.9, adult Jun 05 9:18AM Vitamin D Deficiency Jun 05 2019 9:18AM Benign Essential Hypertension Jun 05 2019 9:18AM Severe episode of recurrent major depressive disorder, without psychotic features Jun 05 2019 9:18AM Osteopenia of multiple sites Jun 05 2019 9:18AM Pulmonary nodule Jun 05 2019 9:18AM Submandibular gland mass Jun 05 2019 9:18AM Seasonal allergic rhinitis d ue to pollen Jul 03 2019 9:21AM Osteoarthritis of both knees Jul 03 2019 9:21AM Gait instability Jul 03 2019 9:21AM Moderate episode of recurren t major depressive disorder Jul 11 2019 11:16AM Hallucination Jul 11 2019 11:16AM Medication intolerance Jul 11 2019 11:16AM Breast mass Oct 28 2019 9:52AM Other obesity due to excess calories Dec 09 2019 9:35AM Body mass index (BMI) 40.0-44.9, adult Dec 09 9:35AM Vitamin D Deficiency Dec 09 2019 9:35AM Benign Essential Hypertension Dec 09 2019 9:35AM Severe episode of recurrent major depressive disorder, without psychotic features Dec 09 2019 9:35AM Osteopenia of multiple sites Dec 09 2019 9:35AM Pulmonary nodule Dec 09 2019 9:35AM Infiltrating ductal carcinoma Dec 09 2019 9:35AM Encounter for other and unsp ecified procedures and aftercare; unspecified aftercare Jan 05 2020 11:52AM Benign Essential Hypertension May 28 2020 2:52PM Dyslipidemia May 28 2020 2:52PM Vitamin D deficiency May 28 2020 2:52PM Drug therapy May 28 2020 2:52PM Elevated fasting blood sugar May 28 2020 2:52PM Other obesity due to excess calories Jun 15 2020 8:44AM Body mass index (BMI) 40.0-44.9, adult Jun 15 202 0 8:44AM Vitamin D Deficiency Jun 15 2020 8:44AM Benign Essential Hypertension Jun 15 2020 8:44AM Moderate episode of recurren t major depressive disorder Jun 15 2020 8:44AM Osteopenia of multiple sites Jun 15 2020 8:44AM Pulmonary nodule Jun 15 2020 8:44AM Malignant neoplasm of left f emale breast, unspecified estrogen receptor status, unspecified site of breast Jun 15 2020 8:44AM Other obesity due to excess calories Jan 12 2022 2:47PM Body mass index (BMI) 40.0-44.9, adult Jan 12 2:47PM Vitamin D Deficiency Jan 12 2022 2:47PM Benign Essential Hypertension Jan 12 2022 2:47PM Moderate episode of recurren t major depressive disorder Jan 12 2022 2:47PM Osteopenia of multiple sites Jan 12 2022 2:47PM Malignant neoplasm of left f emale breast, unspecified estrogen receptor status, unspecified site of breast Jan 12 2022 2:47PM Cervicalgia Jan 12 2022 2:47PM Dyspnea on exertion Jan 12 2022 2:47PM Encounter for other and unsp ecified procedures and aftercare; unspecified aftercare Jan 25 2022 9:37AM Vitamin D deficiency Feb 08 2022 4:22PM Benign Essential Hypertension Feb 08 2022 4:22PM Dyslipidemia Feb 08 2022 4:22PM Disorder of bone density and structure, unspecified Feb 08 2022 4:22PM Drug therapy Feb 08 2022 4:22PM Class 3 obesity due to exces s calories with body mass index (BMI) of 40.0 to 44.9 in adult, unspecified whether serious comorbidity present Feb 16 2022 9:18AM Vitamin D Deficiency Feb 16 2022 9:18AM Benign Essential Hypertension Feb 16 2022 9:18AM Moderate episode of recurren t major depressive disorder Feb 16 2022 9:18AM Osteopenia of multiple sites Feb 16 2022 9:18AM Malignant neoplasm of left f emale breast, unspecified estrogen receptor status, unspecified site of breast Feb 16 2022 9:18AM Cervicalgia Feb 16 2022 9:18AM Dyspnea on exertion Feb 16 2022 9:18AM Anxiety Feb 16 2022 9:18AM Annual physical exam May 22 2022 8:58AM Advanced care planning/couns eling discussion May 22 2022 8:58AM Body Mass Index 40.0-44.9, adult May 22 2022 8:58 AM Class 3 obesity due to exces s calories with body mass index (BMI) of 40.0 to 44.9 in adult, unspecified whether serious comorbidity present May 22 2022 8:58AM Coronary Artery Disease May 22 2022 8:58AM Malignant neoplasm of left f emale breast, unspecified estrogen receptor status, unspecified site of breast May 22 2022 8:58AM Moderate episode of recurren t major depressive disorder May 22 2022 8:58AM Vitamin D deficiency May 22 2022 8:58AM Benign Essential Hypertension May 22 2022 8:58AM Dyslipidemia May 22 2022 8:58AM Osteopenia of multiple sites May 22 2022 8:58AM GERD (gastroesophageal reflux disease) May 22 8:58AM Vitamin D deficiency May 22 2022 9:11AM Osteopenia of multiple sites May 22 2022 9:11AM Moderate episode of recurren t major depressive disorder Jul 13 2022 2:42PM Payers Insurance Name Company Name Plan Name Plan Number Policy Number Policy Group Number Start Date Medicare Medicare [id number] N/A [place] [employer] [employer] [id number] 3 Sunday, 2015 History of Encounters Visit Date Visit Type Provider 05/22/2022 XRay Lew mcmahan MD 05/22/2022 Nurse Visit Lew mcmahan MD 02/16/2022 Established Pt 02/16/2022 Established Pt Lew mcmahan MD 02/09/2022 Lab Lew mcmahan MD 01/12/2022 New Pt Lew mcmahan MD 06/15/2020 Established Pt Lew mcmahan MD 06/08/2020 Lab Lab Lab C 12/09/2019 Established Pt Lew mcmahan MD 10/28/2019 Established Pt 10/28/2019 Established Pt 10/28/2019 Established Pt Agnes REHMAN 07/11/2019 Same Day Add On Agnes Cordoba APNP 07/03/2019 Sub Acute Agnes Cordoba APNP 06/05/2019 Established Pt Lew mcmahan MD 05/05/2019 Established Pt 05/05/2019 Established Pt 05/05/2019 Established Pt 05/05/2019 Established Pt Lew mcmahan MD 04/29/2019 Lab Lab Lab C 04/21/2019 Established Pt 04/21/2019 Established Pt 04/21/2019 Established Pt Agnes REHMAN 04/29/2018 Established Pt Lew mcmahan MD 04/29/2018 Lab Lab Lab C 11/09/2017 Sub Acute Lew mcmahan MD 10/31/2017 XRay XRay XRay C 10/31/2017 Sub Acute 10/31/2017 Sub Acute Lew mcmahan MD 04/25/2017 Established Pt 04/25/2017 Established Pt Lew mcmahan MD 04/20/2017 Lab Lab Lab C 10/30/2016 Same Day Add On Agnes Cordoba APNP 04/12/2016 Established Pt Lew mcmahan MD 04/05/2016 Lab Lab Lab C 10/06/2015 Established Pt Lew mcmahan MD 09/02/2015 Established Pt Lew mcmahan MD 05/31/2015 Lab Lab Lab C 04/07/2015 XRay XRay XRay C 04/07/2015 Established Pt Lew mcmahan MD 03/29/2015 Nurse Visit Rosalie pereira CATARACT LENS GENERATOR 03/29/2015 Lab Lab Lab C 09/28/2014 Established Pt Lew mcmahan MD 03/30/2014 Established Pt Lew mcmahan MD 03/30/2014 Lab Lab Lab C 02/17/2014 Nurse Visit Rosalie pereira CATARACT LENS GENERATOR 04/01/2013 Established Pt Lew mcmahan MD 04/01/2013 XRay XRay XRay C 03/28/2013 Lab Lab Lab C 01/01/2013 Lab Lab Lab C 12/26/2012 Nurse Visit [facility] C 03/20/2012 Established Pt Lew mcmahan MD 03/18/2012 Lab Lab Lab C 07/27/2011 Established Pt Lew mcmahan MD 07/20/2011 Established Pt Lew mcmahan MD 07/11/2011 Lab Lab Lab C 01/10/2011 Established Pt Lew mcmahan MD 01/04/2011 Lab Lab Lab C 10/05/2010 Lab Lab Lab C 10/05/2010 Established Pt Dinora otto MD 07/07/2010 Established Pt Kali winters MD 07/05/2010 XRay XRay XRay C 07/05/2010 Lab Lab Lab C 12/09/2009 Physical 12/09/2009 Physical Kali Crow on 11/25/2009 Lab Lab Lab C 05/25/2009 Established Pt Kali Crow on 05/19/2009 Lab Lab Lab C 12/17/2008 Ultrasound Ultrasound Ultra sound C 12/09/2008 Physical Kali Crow on MD 12/03/2008 Lab Lab Lab C 09/24/2008 Established Pt Yosvany Rosenberg rris, III CATARACT LENS GENERATOR 09/08/2008 Established Pt Dinora Smith ks Do not use MD 07/27/2008 Same Day Add On Ray ZZZRiley PA- C 06/25/2008 Same Day Add On Ray ZZZRiley PA- C 05/12/2008 Established Pt Kali Crow on 05/04/2008 Lab Lab Lab C 02/07/2008 Established Pt Kali Crow on 02/05/2008 Lab Lab Lab C 12/02/2007 Outpatient Hospital Procedure Ca paul Roman MD 11/19/2007 Established Pt Kali Crow on 11/08/2007 Lab Lab Lab C 11/06/2007 Established Pt Kali Crow on 10/28/2007 Lab Lab Lab C 05/09/2007 Established Pt Kali Crow on 05/07/2007 Lab Lab Lab C
[2023-07-17] MEDS: denosumab 60 mg SDV SUBCUT (12:25)
[2023-07-17 12:30] VITALS: BP 127/76; PULSE 67; RESP 17; TEMP 36.6; O2SAT 96
[2023-07-17 12:35] VITALS: BP 127/76; PULSE 67; RESP 17; TEMP 36.6; O2SAT 96
[2023-07-17 12:44] LABS: Basophils % 0.6 %; Eosinophils # 0.2 10^3/uL (0.0-0.8); Eosinophils % 2.9 %; Lymphocytes # 1.4 10^3/uL (0.8-4.8); Lymphocytes % 19.6 %; Mean Corpuscular HGB Conc 31.9 g/dL (30-55); Mean Corpuscular Hemoglobin 28.5 pg (27-33); Mean Corpuscular Volume 89.6 fl (85-98); Mean Platelet Volume 11.6 fL (7.4-10.4); Monocytes # 0.6 10^3/uL (0.2-0.9); Neutrophils # 4.96 10^3/uL (1.8-7.7); Neutrophils % 68.5 %; Nucleated Red Blood Cells % 0 %; Platelet Count 245 10^3/cmm (157-399); Red Cell Distribution Width 13.4 % (12.1-15.1); White Blood Count 7.24 10^3/uL (3.29-11.43)
[2023-07-17 13:08] LABS: Alanine Aminotransferase 13 U/L (0-33); Alkaline Phosphatase 105 U/L (35-105); Anion Gap 12.1 (5-19); Aspartate Amino Transferase 29 U/L (0-32); Blood Urea Nitrogen 12 mg/dL (8-23); Calcium 9.5 mg/dL (8.5-10.5); Carbon Dioxide 32 mmol/L (22-29); Chloride 99 mmol/L (98-107); Glucose 86 mg/dL (65-115); Osmolality Calculated 287 mOsm/kg (285-295); Potassium 4.1 mmol/L (3.5-5.1); Sodium 139 mmol/L (136-145); Total Bilirubin 0.6 mg/dL (0.15-1.2)
[2023-07-17 13:21] LABS: 25 Hydroxy Vitamin D 41 ng/mL (30-100)
--- NOTE | 2023-07-17 15:19 | N.ONRAD NP_ITS ---
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 Radiotherapy to date: Summary > No prior radiation therapy. 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 No adjuvant radiation performed then . Now with local recurrence with axillary adenopathy s/p lumpectomy and ALNS on 07/02/2023. Following her initial dx she was treated with anastrozole. She does not recall why she did not pursue adjuvant radiation at that time. Now on re evaluation she had MMG and U/S consistent with local recurrence with axillary involvement. Lumpectomy and ax LN sampling 07/02/2023 Path G2 IDC 2.4 cm 5 of 11 onvolved LNs Margins clear. ER/NM positive. H2N- Ki 67 low at 5%. Doing well post op. Drain out today. She began adjuvant exemestane which is well tolerated. Ambulates now with a walker as she has bad knees. Current Medications: 24HR Allergy Relief, albuterol Sulfate, aLPRAZolam, anastrozole, anastrozole, aspirin, atenolol, benazepril HCl, benazepril-hydroCHLOROthiazide, glucosamine Sulfate, naproxen, nitroglycerin, nitroglycerin, omeprazole, sertraline HCl, simvastatin, vitamin D. Allergies: Valium and ceFAZolin in Sodium Chloride. Medical History: Degenerative arthritis, gastroesophageal reflux disease, hypercholesterolemia, hypertension. No history of collagen vascular disease. No previous radiation therapy. Surgical History: Bilateral cataract excisions, covid vaccine # 1 in 10/2020, covid vaccine # 2 in 11/2020 and left breast lumpectomy. Family History: Father is at age 94 having experienced old age. Mother is at age 94 having experienced old age. Brother is alive. Brother is alive. Sister is at age 75 having experienced leukemia. Sister is alive. Sister is alive. Sister is . Both parents in their 90s, apparently of old age. A sister at age 75. By the patient's description it sounds as though she had acute leukemia. Another sister and 1 brother are still living. There is no history of breast cancer or ovarian cancer in the family. Social History: Last screened on 04/06/2021 - Yes - but has quit for 52 years. Smoked 0.5 packs/day for 11 years (5.5 pack years). Last screened on 04/06/2021 - Past drinker. Current Complaints / Review of Systems: . Vital Signs: Performed on 07/17/2023 11:23 AM BMI - 41.153 kg/m2 (high), Height - 62 in, Weight - 225 lbs, Temperature - 98 f, Pulse - 73 /min, Respiration - 16 /min, O2 Sat - 93 % (low), Pain - 0, Fatigue - 0 and BP - 156/ 64 mm(hg)(high/low). Physical Exam: Elderly in NAD. No palpable SCLNs. Arms full range of motion. Left breast and left axillary incisions healing well. Performance Status: ECOG PS 1 Pathology: Primary, c50.412 - malignant neoplasm of upper-outer quadrant of left female breast, Diagnosed 12/10/2019 (active) stage ib, t2, n0, m0, g2, her2 neg, er pos, pr pos. Lab: none Imaging: See HPI Impression:Local recurrence and meri recurrence of initial st II DC of left breast. Suitable for salvage breast preservation with lumpectomy, ax LN sampling followed by breast and regional meri radiation. Plan on 50 Gy to breast, axillary apex and supraclav in25 fx. No boost planned. Plan: Signed by: 07/17/2023 3:17:29 PM <<Signature on File>> Time spent with patient: CPT Code: CPT Code:
--- NOTE | 2023-07-24 12:47 | ONCRAD TMN_ITS ---
Radiation Oncology Weekly Treatment Management Patient: Sae Gambino MR#: [id number] : 1940> Attending Physician: Law Negron Date of Service: 07/24/2023 Referring Physician(s) : Diagnosis: C50.412 - Malignant neoplasm of upper-outer quadrant of left female breast, Diagnosed 12/10/2019 (Active) Stage IB, T2, N0, M0, G2, HER2 Neg, ER Pos, [place] Pos Radiotherapy to date: Course: Lt Breast 2022, Treatment Site: Lt SCLV 50Gy, Ref. ID: [id number], Energy: 15X, Dose/Fx (cGy): 200, #Fx: 2 / 25, Dose Correction (cGy): 0, Total Dose (cGy): 400, Start Date: 07/23/2023, Elapsed Days: 1 Lt Breast 2022, Treatment Site: L [id number], Ref. ID: [id number], Energy: 15X, Dose/Fx (cGy): 200, #Fx: 2 / 25, Dose Correction (cGy): 0, Total Dose (cGy): 400, Start Date: 07/23/2023, Elapsed Days: 1 Reason for visit: The patient is being seen today as part of their regularly scheduled weekly on treatment visits to assess for acute toxicities from radiotherapy. Review of Systems: Just began chest wall treatment. Vital Signs: Performed on 07/24/2023 10:04 AM BMI - 41.483 kg/m2 (high), Height - 62 in, Weight - 226.8 lbs, Temperature - 98 f, Pulse - 72 /min, Respiration - 16 /min, O2 Sat - 96 %, Pain - 0, Fatigue - 0 and BP - 141/ 65 mm(hg)(high/). Physical Exam: Imaging: Radiation therapy imaging related to accurate target localization (i.e. KV, MV and CBCT) was reviewed. Appropriate changes, if any, were made to ensure treatment accuracy. Plan: Good tolerance of treatment. Discussed skin care choices. Signed by: Law Negron 07/24/2023 12:46:09 PM Telemedicine Consent Patient seen today via Telemedicine by agreement and consent of patient. Telemedicine technology used during the visit include audio and, as available, review of images. This patient encounter is appropriate and reasonable under the circumstances given the patient???s particular presentation at this time. The patient has been advised of the potential risks and limitations of this mode of treatment (including but not limited to the absence of in-person examination) and has agreed to be treated in a remote fashion in spite of them. Any and all of the patient???s/patient???s family???s questions on this issue have been answered and I have made no promises or guarantees to the patient. The patient has also been advised to contact this office for worsening conditions or problems, and seek emergency medical treatment and/or call 911 if the patient deems either necessary.
--- NOTE | 2023-08-01 09:02 | ONCRAD TMN_ITS ---
Radiation Oncology Weekly Treatment Management Patient: Immanuel Quevedo MR#: [id number] : 1940 Attending Physician: Law Negron Date of Service: 07/31/2023 Referring Physician(s) : Diagnosis: C50.412 - Malignant neoplasm of upper-outer quadrant of left female breast, Diagnosed 12/10/2019 (Active) Stage IB, T2, N0, M0, G2, HER2 Neg, ER Pos, [place] Pos Radiotherapy to date: Course: Lt Breast 2022, Treatment Site: Lt SCLV 50Gy, Ref. ID: [id number], Energy: 15X, Dose/Fx (cGy): 200, #Fx: 7 / 25, Dose Correction (cGy): 0, Total Dose (cGy): 1,400, Start Date: 07/23/2023, Elapsed Days: 8 Course: Lt Breast 2022, Treatment Site: L [id number], Ref. ID: [id number], Energy: 15X, Dose/Fx (cGy): 200, #Fx: 25, Dose Correction (cGy): 0, Total Dose (cGy): 1,400, Start Date: 07/23/2023, Elapsed Days: 8 Reason for visit: The patient is being seen today as part of their regularly scheduled weekly on treatment visits to assess for acute toxicities from radiotherapy. Review of Systems: No compaints. Using Vit E oil . Chronically fatigued but trying to do more around the house. Vital Signs: Performed on 07/31/2023 10:12 AM BMI - 40.861 kg/m2 (high), Height - 62 in, Weight - 223.4 lbs, Temperature - 97.6 f, Pulse - 66 /min, Respiration - 16 /min, O2 Sat - 97 %, Pain - 0, Fatigue - 5 and BP - 138/ 52 mm(hg)(/low). Physical Exam: Imaging: Radiation therapy imaging related to accurate target localization (i.e. KV, MV and CBCT) was reviewed. Appropriate changes, if any, were made to ensure treatment accuracy. Plan: Good tolerance of treatment. Continue as planned. Signed by: Law Negron 08/01/2023 9:01:10 AM Telemedicine Consent Patient seen today via Telemedicine by agreement and consent of patient. Telemedicine technology used during the visit include audio and, as available, review of images. This patient encounter is appropriate and reasonable under the circumstances given the patient???s particular presentation at this time. The patient has been advised of the potential risks and limitations of this mode of treatment (including but not limited to the absence of in-person examination) and has agreed to be treated in a remote fashion in spite of them. Any and all of the patient???s/patient???s family???s questions on this issue have been answered and I have made no promises or guarantees to the patient. The patient has also been advised to contact this office for worsening conditions or problems, and seek emergency medical treatment and/or call 911 if the patient deems either necessary.
== END 2023-08-06 23:59 | disposition home or self-care (01) ==
PROVIDERS: Family Provider Internal Medicine Medical Oncology; PCP Family Medicine Adult Medicine; Visit Provider Radiology Radiation Oncology
DX: Z51.0 Encounter for antineoplastic radiation therapy; C50.412 Malignant neoplasm of upper-outer quadrant of left female breast; Z17.0 Estrogen receptor positive status [ER+]
CPT/HCPCS: 36415; 77290; 77300; 77334; 77336; 77387; 77412; 77470; 80053; 82306; 85025; 96372; 99024; 99205; J0897

== ENCOUNTER 2023-08-14 09:55 | Oncology outpatient (recurring) (ONCR) | payer MEDICARE, OTHER, SELFPAY ==
--- NOTE | 2023-08-07 10:17 | ONCRAD TMN_ITS ---
Radiation Oncology Weekly Treatment Management Patient: Immanuel Quevedo MR#: [id number] : 1940 Attending Physician: Winston Boo Date of Service: 08/07/2023 Referring Physician(s) : Diagnosis: C50.412 - Malignant neoplasm of upper-outer quadrant of left female breast, Diagnosed 12/10/2019 (Active) Stage IB, T2, N0, M0, G2, HER2 Neg, ER Pos, [place] Pos Radiotherapy to date: Course: Lt Breast 2022, Treatment Site: Lt SCLV 50Gy, Ref. ID: [id number], Energy: 15X, Dose/Fx (cGy): 200, #Fx: / 25, Dose Correction (cGy): 0, Total Dose (cGy): 2,400, Start Date: 07/23/2023, Elapsed Days: 14 Course: Lt Breast 2022, Treatment Site: L [id number], Ref. ID: [id number], Energy: 15X, Dose/Fx (cGy): 200, #Fx: 25, Dose Correction (cGy): 0, Total Dose (cGy): 2,400, Start Date: 07/23/2023, Elapsed Days: 14 Reason for visit: The patient is being seen today as part of their regularly scheduled weekly on treatment visits to assess for acute toxicities from radiotherapy. Review of Systems: Patient denies difficulty with skin irritation or pain. She is using moisturizers as instructed. Vital Signs: Performed on 08/07/2023 9:55 AM BMI - 58.555 kg/m2 (high), Height - 52 in, Weight - 225.2 lbs, Temperature - 97.1 f, Pulse - 70 /min, Respiration - 18 /min, O2 Sat - 96 %, Pain - 0, Fatigue - 5 and BP - 170/ 76 mm(hg)(high/). Physical Exam: Alert and oriented female appearing her stated age. Skin in the treatment area is intact with minimal erythema. No moist desquamation. Surgical incision is well-healed. There is a slight surgical defect in the upper outer left breast. Patient ambulatory without assistance. Imaging: Radiation therapy imaging related to accurate target localization (i.e. KV, MV and CBCT) was reviewed. Appropriate changes, if any, were made to ensure treatment accuracy. Plan: Continue prescribed radiation therapy. Signed by: Winston Boo 08/07/2023 10:15:54 AM
--- NOTE | 2023-08-14 10:57 | ONCRAD TMN_ITS ---
Radiation Oncology Weekly Treatment Management Patient: Immanuel Marcos MR#: [id number] : 1940> Attending Physician: Dr. Cheyenne Driver Date of Service: 08/14/2023 Fractions: 17 out of 25 Referring Physician(s) : Diagnosis: C50.412 - Malignant neoplasm of upper-outer quadrant of left female breast, Diagnosed 12/10/2019 (Active) Stage IB, T2, N0, M0, G2, HER2 Neg, ER Pos, [place] Pos Radiotherapy to date: Course: Lt Breast 2022, Treatment Site: Lt SCLV 50Gy, Ref. ID: [id number], Energy: 15X, Dose/Fx (cGy): 200, #Fx: / 25, Dose Correction (cGy): 0, Total Dose (cGy): 3,400, Start Date: 07/23/2023, Elapsed Days: 22 Course: Lt Breast 2022, Treatment Site: L [id number], Ref. ID: [id number], Energy: 15X, Dose/Fx (cGy): 200, #Fx: 25, Dose Correction (cGy): 0, Total Dose (cGy): 3,400, Start Date: 07/23/2023, Elapsed Days: 22 Reason for visit: The patient is being seen today as part of their regularly scheduled weekly on treatment visits to assess for acute toxicities from radiotherapy. Review of Systems: Patient denies complaints Vital Signs: Performed on 08/14/2023 10:03 AM BMI - 41.483 kg/m2 (high), Height - 62 in, Weight - 226.8 lbs, Temperature - 97.3 f, Pulse - 71 /min, Respiration - 18 /min, O2 Sat - 90 % (low), Pain - 0, Fatigue - 0 and BP - 158/ 78 mm(hg)(high/). Physical Exam: Her skin has become erythematous within the treatment becker. Is got a splotchy rash she appearance and the majority of the field. Her supraclavicular field is more of a solid erythematous change. As is the axillary area. None of the areas have shown any dry or moist desquamation. Imaging: Radiation therapy imaging related to accurate target localization (i.e. KV, MV and CBCT) was reviewed. Appropriate changes, if any, were made to ensure treatment accuracy. Plan: At this time she is using cortisone cream on the area. She denies any itching. She remains in good spirits. She did have questions about follow-up today and we talked about how she have her mammogram done at 6-month intervals for 2 years. At this point we will continue with her treatments as planned Signed by: Dr. Cheyenne Driver 08/14/2023 10:56:20 AM
== END 2023-08-14 23:59 | disposition home or self-care (01) ==
PROVIDERS: Family Provider Internal Medicine Medical Oncology; PCP Family Medicine Adult Medicine; Visit Provider Radiology Radiation Oncology
DX: Z51.0 Encounter for antineoplastic radiation therapy; C50.412 Malignant neoplasm of upper-outer quadrant of left female breast; Z17.0 Estrogen receptor positive status [ER+]; C77.3 Secondary and unspecified malignant neoplasm of axilla and upper limb lymph nodes
CPT/HCPCS: 77336; 77387; 77412; 99024

== ENCOUNTER 2023-09-05 15:18 | Oncology outpatient (recurring) (ONCR) | payer MEDICARE, OTHER, SELFPAY ==
--- NOTE | 2023-08-20 10:53 | ONCRAD TMN_ITS ---
Radiation Oncology Weekly Treatment Management Patient: Sae Gambino MR#: [id number] : 1940> Attending Physician: Dr. Cheyenne Driver Date of Service: 08/20/2023 Referring Physician(s) : Diagnosis: C50.412 - Malignant neoplasm of upper-outer quadrant of left female breast, Diagnosed 12/10/2019 (Active) Stage IB, T2, N0, M0, G2, HER2 Neg, ER Pos, [place] Pos Radiotherapy to date: Course: Lt Breast 2022, Treatment Site: Lt SCLV 50Gy, Ref. ID: [id number], Energy: 15X, Dose/Fx (cGy): 200, #Fx: 25, Dose Correction (cGy): 0, Total Dose (cGy): 4,200, Start Date: 07/23/2023, Elapsed Days: 28 Lt Breast 2022, Treatment Site: L [id number], Ref. ID: [id number], Energy: 15X, Dose/Fx (cGy): 200, #Fx: , Dose Correction (cGy): 0, Total Dose (cGy): 4,158.4, Start Date: 07/23/2023, Elapsed Days: 28 Reason for visit: The patient is being seen today as part of their regularly scheduled weekly on treatment visits to assess for acute toxicities from radiotherapy. Review of Systems: Vital Signs: Performed on 08/20/2023 10:04 AM BMI - 41.08 kg/m2 (high), Height - 62 in, Weight - 224.6 lbs, Temperature - 98 f, Pulse - 93 /min, Respiration - 18 /min, O2 Sat - 96 %, Pain - 4, Fatigue - 4 and BP - 147/ 69 mm(hg)(high/). Physical Exam: Over the weekend the patient has had dry desquamation develop in the axillary fold. The underlying skin appears to actually be growing in quite nicely. She has no weeping noticed. She does have a small area of desquamation in the inframammary fold. The skin overlying the supraclavicular field is erythematous but does not appear to have any areas of moist or dry desquamation. Imaging: Radiation therapy imaging related to accurate target localization (i.e. KV, MV and CBCT) was reviewed. Appropriate changes, if any, were made to ensure treatment accuracy. Plan: I talked with her today about trying to soak the area when she is in the shower. She will then air dry as best she can. I also suggested she may use a hairmasters manager on a low setting to dry under her arm. She will then apply the Silvadene twice a day. We talked about taking a treatment break until next Sunday when she can return to complete the last 4 treatments. She verbalized understanding and was in agreement with this. The Silvadene was sent electronically to her pharmacy. Signed by: Dr. Cheyenne Driver 08/20/2023 10:52:47 AM
--- NOTE | 2023-08-28 12:18 | ONCRAD TMN_ITS ---
Radiation Oncology Weekly Treatment Management Patient: Immanuel Marcos MR#: [id number] : 1940> Attending Physician: Law Negron Date of Service: 08/28/2023 Referring Physician(s) : Diagnosis: C50.412 - Malignant neoplasm of upper-outer quadrant of left female breast, Diagnosed 12/10/2019 (Active) Stage IB, T2, N0, M0, G2, HER2 Neg, ER Pos, [place] Pos Radiotherapy to date: Course: Lt Breast 2022, Treatment Site: L [id number], Ref. ID: [id number], Energy: 15X, Dose/Fx (cGy): 200, #Fx: 25, Dose Correction (cGy): ,0, Total Dose (cGy): 4,158.4, Start Date: 07/23/2023, Elapsed Days: 28 Treatment Site: Lt SCLV 50Gy, Ref. ID: [id number], Energy: 15X, Dose/Fx (cGy): 200, #Fx: , Dose Correction (cGy): 0, Total Dose (cGy): 4,200, Start Date: 07/23/2023, Elapsed Days: 28 Reason for visit: The patient is being seen today as part of their regularly scheduled weekly on treatment visits to assess for acute toxicities from radiotherapy. Review of Systems: She went on treatment break on 08/20/2023. She used Silvadene. Now using Aquaphor after SIlvadene ran out. Worst site in supraclav now nearly pain free. Using Tylenol and naproxen for pain. Caring for with dementia. Vital Signs: Performed on 08/28/2023 10:09 AM Height - 62 in, Weight - 223.8 lbs, BMI - 40.934 kg/m2 (high), Temperature - 97.2 f, Pulse - 70 /min, Respiration - 18 /min, O2 Sat - 93 % (low), Pain - 4, Fatigue - 0 and BP - 142/ 62 mm(hg)(high/low). Physical Exam: Left supraclav with spotty moist desquamation and [place] of skin. No exudate. Tanning and erythema of left breast and axilla. No residual dequamation. Imaging: Radiation therapy imaging related to accurate target localization (i.e. KV, MV and CBCT) was reviewed. Appropriate changes, if any, were made to ensure treatment accuracy. Plan: Good partial improvement. OK to resume treatment. Patient also keen to complete treatment as soon as possible. Signed by: Law Negron 08/28/2023 12:17:32 PM
--- NOTE | 2023-09-03 16:27 | N.ONRD TS_ITS ---
Radiation Oncology Treatment Summary Patient: Maliha MR#: [id number] : 1940> Age: 83> Sex: Female Dictated by: Lew Iglesias Date of Service: 09/03/2023 Referring Physician(s) : Diagnosis: C50.412 - Malignant neoplasm of upper-outer quadrant of left female breast, Diagnosed 12/10/2019 (Active) Stage IB, T2, N0, M0, G2, HER2 Neg, ER Pos, [place] Pos Radiotherapy to Date: Course: Lt Breast 2022, Treatment Site: L [id number], Ref. ID: [id number], Energy: 15X, Dose/Fx (cGy): 200, #Fx: 25 / 25, Dose Correction (cGy): 0, Total Dose (cGy): 4,958.4, Start Date: 07/23/2023, End Date: 09/03/2023, Elapsed Days: 42 Treatment Site: L [id number], Ref. ID: [id number], Energy: 15X, Dose/Fx (cGy): 42, #Fx: 1 / 1, Dose Correction (cGy): 0, Total Dose (cGy): 42, Start Date: 08/30/2023, End Date: 08/30/2023, Elapsed Days: 0 Treatment Site: Lt SCLV 50Gy, Ref. ID: [id number], Energy: 15X, Dose/Fx (cGy): 200, #Fx: 25 / 25, Dose Correction (cGy): 0, Total Dose (cGy): 5,000, Start Date: 07/23/2023, End Date: 09/03/2023, Elapsed Days: 42 Clinical Summary: The patient tolerated RT well. At the completion of treatment she was ambulatory with a cane. She had no complaints. She had moderate erythema of the left supraclavicular area. She is not at risk for skin breakdown. There was no palpable cervical, supraclavicular, or axillary lymphadenopathy. She had good movement of her arm at the shoulder. Plan: End of treatment today. Continue Aquaphor, aloe vera gel, or hydrocortisone 1% cream until the skin reaction resolves. Follow up in one month. Signed by: Lew Iglesias>09/03/2023 4:25:54 PM <<Signature on File>>
== END 2023-09-13 23:59 | disposition home or self-care (01) ==
PROVIDERS: Family Provider Internal Medicine Medical Oncology; PCP Family Medicine Adult Medicine; Visit Provider Internal Medicine Medical Oncology
DX: M85.80 Other specified disorders of bone density and structure, unspecified site (principal); C50.412 Malignant neoplasm of upper-outer quadrant of left female breast; Z17.0 Estrogen receptor positive status [ER+]; Z79.899 Other long term (current) drug therapy
CPT/HCPCS: 77014; 77336; 77387; 77412; 77417; 77427; 99024; 99214

== ENCOUNTER 2023-12-10 13:18 | Oncology outpatient (recurring) (ONCR) | payer MEDICARE, OTHER, SELFPAY | END 2023-12-13 23:59 | disposition home or self-care (01) | PROVIDERS: PCP Family Medicine Adult Medicine; Visit Provider Radiology Radiation Oncology | DX: C50.412 Malignant neoplasm of upper-outer quadrant of left female breast (principal); Z17.0 Estrogen receptor positive status [ER+]; C77.3 Secondary and unspecified malignant neoplasm of axilla and upper limb lymph nodes; Z92.3 Personal history of irradiation; Z79.811 Long term (current) use of aromatase inhibitors | CPT/HCPCS: 99214 ==

== ENCOUNTER → 2024-01-09 14:31 | Outpatient (BNVA) | payer MEDICARE, OTHER, SELFPAY | PROVIDERS: PCP Family Medicine Adult Medicine; Visit Provider Internal Medicine | DX: R07.89 Other chest pain (principal); E78.5 Hyperlipidemia, unspecified; I25.10 Atherosclerotic heart disease of native coronary artery without angina pectoris; I10 Essential (primary) hypertension; Z87.891 Personal history of nicotine dependence | CPT/HCPCS: 99214 ==

== ENCOUNTER 2024-04-16 10:09 | Outpatient (CLI) | payer MEDICARE, OTHER, SELFPAY ==
--- NOTE | 2024-04-16 10:30 | MM_ITS ---
WS: [id number] BILATERAL 3D TOMOSYNTHESIS DIGITAL DIAGNOSTIC MAMMOGRAPHY WITH CAD CLINICAL INFORMATION: surveillance; hx of breast ca HISTORY: LEFT breast cancer COMPARISON: 2022 TECHNIQUE: Bilateral CC, MLO, and ML views. FINDINGS: Scattered fibroglandular densities bilaterally. Postoperative changes LEFT lumpectomy. Treatment-rela racheal changes LEFT breast with skin thickening. No new suspicious abnormalities LEFT breast. Vascular c alcification. RIGHT breast stable in appearance No suspicious focal mass, asymmetry, calcifications, or architectural distortion. No evidence of shahram gnancy. MM/[place] [id number] IMPRESSION: BI-RADS: 2-Benign FOLLOW UP: 1 Year Follow-up Recommend return to annual diagnostic mammography.
== END 2024-04-16 10:10 | disposition home or self-care (01) ==
LOC: RAD 10:09
PROVIDERS: PCP Family Medicine Adult Medicine; Visit Provider Nurse Practitioner Family
DX: C50.412 Malignant neoplasm of upper-outer quadrant of left female breast (principal); R92.323 Mammographic fibroglandular density, bilateral breasts; Z98.890 Other specified postprocedural states; R92.1 Mammographic calcification found on diagnostic imaging of breast
CPT/HCPCS: 77062; G0279

== ENCOUNTER 2024-06-05 12:25 | Oncology outpatient (recurring) (ONCR) | payer MEDICARE, OTHER, SELFPAY ==
[2024-06-05 12:57] LABS: Basophils % 0.4 %; Eosinophils # 0.2 10^3/uL (0.0-0.8); Eosinophils % 3.3 %; Hematocrit 46.2 % (36-47); Lymphocytes # 1.1 10^3/uL (0.8-4.8); Lymphocytes % 15.1 %; Mean Corpuscular HGB Conc 31.6 g/dL (30-55); Mean Corpuscular Hemoglobin 28.7 pg (27-33); Mean Corpuscular Volume 90.8 fl (85-98); Mean Platelet Volume 11.7 fL (7.4-10.4); Monocytes # 0.6 10^3/uL (0.2-0.9); Monocytes % 8.6 %; Neutrophils # 4.95 10^3/uL (1.8-7.7); Neutrophils % 71.3 %; Nucleated Red Blood Cells % 0 %; Platelet Count 193 10^3/cmm (157-399); Red Blood Count 5.09 10^6/uL (3.85-5.65); Red Cell Distribution Width 13.9 % (12.1-15.1); White Blood Count 6.95 10^3/uL (3.29-11.43)
[2024-06-05 13:17] LABS: Alanine Aminotransferase 10 U/L (0-33); Albumin Level 4.3 g/dL (3.5-5.2); Alkaline Phosphatase 81 U/L (35-105); Aspartate Amino Transferase 18 U/L (0-32); Blood Urea Nitrogen 11 mg/dL (8-23); Calcium 9.5 mg/dL (8.5-10.5); Carbon Dioxide 28 mmol/L (22-29); Chloride 102 mmol/L (98-107); Globulin 2.7 g/dL (1.3-4.6); Glucose 100 mg/dL (65-115); Osmolality Calculated 293 mOsm/kg (285-295); Sodium 142 mmol/L (136-145); Total Bilirubin 1.1 mg/dL (0.15-1.2)
[2024-06-05] MEDS: denosumab 60 mg SDV SUBCUT (15:02)
== END 2024-06-14 23:59 | disposition home or self-care (01) ==
PROVIDERS: Nurse Practitioner Family; PCP Family Medicine Adult Medicine; Visit Provider Internal Medicine Medical Oncology
DX: C50.412 Malignant neoplasm of upper-outer quadrant of left female breast; Z17.0 Estrogen receptor positive status [ER+]; Z79.811 Long term (current) use of aromatase inhibitors; Z79.899 Other long term (current) drug therapy; Z92.3 Personal history of irradiation; C77.3 Secondary and unspecified malignant neoplasm of axilla and upper limb lymph nodes; D22.9 Melanocytic nevi, unspecified; F32.A Depression, unspecified
CPT/HCPCS: 36415; 80053; 85025; 96372; 99214; J0897

== ENCOUNTER → 2024-07-22 14:40 | Outpatient (BNVA) | payer MEDICARE, OTHER, SELFPAY | PROVIDERS: PCP Family Medicine Adult Medicine; Referring Provider Nurse Practitioner Family; Visit Provider Nurse Practitioner Family | DX: D48.5 Neoplasm of uncertain behavior of skin (principal); L57.0 Actinic keratosis; L82.0 Inflamed seborrheic keratosis; L24.9 Irritant contact dermatitis, unspecified cause; L81.8 Other specified disorders of pigmentation; L81.4 Other melanin hyperpigmentation; L57.8 Other skin changes due to chronic exposure to nonionizing radiation | CPT/HCPCS: 11102; 17000; 17110; 99204 ==

== ENCOUNTER 2024-12-11 11:28 | Outpatient (CLI) | payer MEDICARE, OTHER, SELFPAY ==
--- NOTE | 2024-12-11 14:48 | XR_ITS ---
WS: [id number] Chest 2 views, 12/11/2024 Clinical Data: shortness of breath Comparison: Portable chest, 10/12/2022 Findings: No nodules, masses or effusions are seen. The heart is normal. The pulmonary vascularity is not increased. No pneumonia or pneumothorax is seen. The aortic arch and descending thoracic aorta show calcification and tortuosity. There are calcified granulomas in both shyam. XR/XR chest 2V* [id number] Impression: Atherosclerosis and old granulomatous disease.
== END 2024-12-11 11:29 | disposition home or self-care (01) ==
LOC: RAD 11:35
PROVIDERS: PCP Family Medicine; Visit Provider Family Medicine
DX: R06.02 Shortness of breath (principal); I70.0 Atherosclerosis of aorta; D71 Functional disorders of polymorphonuclear neutrophils
CPT/HCPCS: 71046

== ENCOUNTER 2024-12-11 11:41 | Oncology outpatient (recurring) (ONCR) | payer MEDICARE, OTHER, SELFPAY ==
[2024-12-11 12:41] LABS: Basophils % 0.4 %; Eosinophils # 0.2 10^3/uL (0.0-0.8); Eosinophils % 2.9 %; Hematocrit 45.4 % (36-47); Lymphocytes # 1.1 10^3/uL (0.8-4.8); Lymphocytes % 14.4 %; Mean Corpuscular HGB Conc 31.9 g/dL (30-55); Mean Corpuscular Hemoglobin 28.4 pg (27-33); Mean Corpuscular Volume 88.8 fl (85-98); Mean Platelet Volume 11.4 fL (7.4-10.4); Monocytes # 0.4 10^3/uL (0.2-0.9); Monocytes % 5.7 %; Neutrophils % 76.3 %; Nucleated Red Blood Cells % 0 %; Platelet Count 188 10^3/cmm (157-399); Red Blood Count 5.11 10^6/uL (3.85-5.65); Red Cell Distribution Width 13.7 % (12.1-15.1); White Blood Count 7.34 10^3/uL (3.29-11.43)
[2024-12-11 12:57] LABS: Alanine Aminotransferase 8 U/L (0-33); Albumin Level 4.4 g/dL (3.5-5.2); Alkaline Phosphatase 68 U/L (35-105); Anion Gap 14.7 (5-19); Aspartate Amino Transferase 16 U/L (0-32); Blood Urea Nitrogen 13 mg/dL (8-23); Calcium 9.6 mg/dL (8.5-10.5); Carbon Dioxide 29 mmol/L (22-29); Chloride 99 mmol/L (98-107); Creatinine Clr Calc Pharmacy 58.3242; Globulin 2.7 g/dL (1.3-4.6); Glucose 140 mg/dL (65-115); Osmolality Calculated 290 mOsm/kg (285-295); Potassium 3.7 mmol/L (3.5-5.1); Sodium 139 mmol/L (136-145); Total Bilirubin 1.2 mg/dL (0.15-1.2); Total Protein 7.1 g/dL (6.6-8.7)
[2024-12-11] MEDS: denosumab 60 mg SDV SUBCUT (14:40)
== END 2024-12-12 23:59 | disposition home or self-care (01) ==
PROVIDERS: Nurse Practitioner Family; PCP Family Medicine; Visit Provider Internal Medicine Medical Oncology
DX: C50.412 Malignant neoplasm of upper-outer quadrant of left female breast (principal); Z17.0 Estrogen receptor positive status [ER+]; R06.02 Shortness of breath; F32.A Depression, unspecified; Z92.3 Personal history of irradiation; Z79.899 Other long term (current) drug therapy
CPT/HCPCS: 80053; 85025; 96401; 99214; J0897

== ENCOUNTER 2024-12-24 14:36 | Outpatient (CLI) | payer MEDICARE, OTHER, SELFPAY ==
--- NOTE | 2024-12-24 15:00 | XR_ITS ---
WS: [id number] SCREENING DEXA SCAN [facility] CLINICAL INFORMATION: AI use; postmenopausal woman COMPARISON: 2019 FINDINGS: The L1-L4 bone mineral density measures 1.143 g/cm2. This corresponds to a T score score of -0.3 and Z score of 0.4. Left femoral neck bone mineral density measures 0.822 g/cm2. This corresponds to a T score of -1.5 and Z score of 0.0. Right femoral neck bone mineral density measures 0.802 g/cm2. This corresponds to a T score -1.6of and Z score of -0.2. Mean femoral neck bone mineral density measures 0.812 g/cm2. This corresponds to a T score of -1.6 and Z score of -0.1. XR/XR DEXA axial skeleton* [id number] IMPRESSION: Normal bone mineralization lumbar spine. Osteopenia femoral necks. Patient's FRAX calculated 10 year probability for major osteoporotic fracture i s 14.5% and osteoporotic hip fracture is 4.3%. Bone marrow density lumbar spine decreased -2.8% Bone mineral density femoral necks increased 1.0%
== END 2024-12-24 14:37 | disposition home or self-care (01) ==
PROVIDERS: PCP Family Medicine; Visit Provider Nurse Practitioner Family
DX: C50.412 Malignant neoplasm of upper-outer quadrant of left female breast (principal); Z79.811 Long term (current) use of aromatase inhibitors; M85.88 Other specified disorders of bone density and structure, other site
CPT/HCPCS: 77080

== ENCOUNTER → 2025-02-19 10:35 | Outpatient (BNVA) | payer MEDICARE, OTHER, SELFPAY | PROVIDERS: PCP Family Medicine; Visit Provider Family Medicine | DX: E78.5 Hyperlipidemia, unspecified (principal) | CPT/HCPCS: 80053; 80061 ==

== ENCOUNTER 2025-04-20 08:46 | Oncology outpatient (recurring) (ONCR) | payer MEDICARE, OTHER, SELFPAY ==
--- NOTE | 2025-04-20 09:00 | MM_ITS ---
WS: [id number] BILATERAL 3D TOMOSYNTHESIS DIGITAL DIAGNOSTIC MAMMOGRAPHY WITH CAD CLINICAL INFORMATION: surveillance HISTORY: History of LEFT breast cancer COMPARISON: 2023 TECHNIQUE: Bilateral CC, MLO, and ML views. FINDINGS: Scattered fibroglandular densities bilaterally. Postoperative changes lumpectomy LEFT breast with treatment related changes and parenchymal fibrosis. This is similar to previous. No new suspicious abnormality in the LEFT breast. Vascular calcification. RIGHT breast is stable in appearance. Stable nodules RIGHT breast. No suspicious focal mass, asymmetry, calcifications, or architectural distortion. No evidence of malignancy. MM/MM diag BI tomosynthesis [id number] IMPRESSION: DENSITY: There are scattered areas of fibroglandular density. BI-RADS: 2 - Benign. FOLLOW UP: 1 Year Follow-up Recommend return to annual diagnostic mammography.
== END 2025-05-14 23:59 | disposition home or self-care (01) ==
LOC: RAD 08:46 → ONCMED 09:48
PROVIDERS: PCP Family Medicine; Visit Provider Internal Medicine Medical Oncology
DX: C50.412 Malignant neoplasm of upper-outer quadrant of left female breast (principal); Z17.0 Estrogen receptor positive status [ER+]; Z79.811 Long term (current) use of aromatase inhibitors; Z79.899 Other long term (current) drug therapy; Z92.3 Personal history of irradiation; C77.3 Secondary and unspecified malignant neoplasm of axilla and upper limb lymph nodes; D22.9 Melanocytic nevi, unspecified; F32.A Depression, unspecified; C50.919 Malignant neoplasm of unspecified site of unspecified female breast
CPT/HCPCS: 77062; G0279

== ENCOUNTER 2025-06-10 09:33 | Oncology outpatient (recurring) (ONCR) | payer MEDICARE, OTHER, SELFPAY ==
[2025-06-10 10:01] LABS: Hematocrit 44.9 % (36-47); Hemoglobin 14.80 g/dL (11.27-16.99); Mean Corpuscular HGB Conc 33.0 g/dL (30-55); Mean Corpuscular Hemoglobin 29.0 pg (27-33); Mean Corpuscular Volume 88.0 fl (85-98); Nucleated Red Blood Cells % 0 %; Platelet Count 179 10^3/cmm (157-399); Red Blood Count 5.10 10^6/uL (3.85-5.65); White Blood Count 5.70 10^3/uL (3.29-11.43)
[2025-06-10 10:16] LABS: Alanine Aminotransferase < 5 U/L (0-33); Albumin Level 4.3 g/dL (3.5-5.2); Alkaline Phosphatase 63 U/L (35-105); Anion Gap 13.2 (5-19); Aspartate Amino Transferase 11 U/L (0-32); Blood Urea Nitrogen 15 mg/dL (8-23); Calcium 9.6 mg/dL (8.5-10.5); Carbon Dioxide 29 mmol/L (22-29); Chloride 101 mmol/L (98-107); Creatinine Clr Calc Pharmacy 58.1203; Globulin 2.6 g/dL (1.3-4.6); Glucose 103 mg/dL (65-115); Osmolality Calculated 289 mOsm/kg (285-295); Potassium 4.2 mmol/L (3.5-5.1); Sodium 139 mmol/L (136-145); Total Protein 6.9 g/dL (6.6-8.7)
[2025-06-10] MEDS: denosumab 60 mg SDV SUBCUT (12:14)
== END 2025-06-14 23:59 | disposition home or self-care (01) ==
PROVIDERS: Nurse Practitioner Family; PCP Family Medicine; Visit Provider Internal Medicine
DX: C50.412 Malignant neoplasm of upper-outer quadrant of left female breast (principal); Z17.0 Estrogen receptor positive status [ER+]; Z87.891 Personal history of nicotine dependence; M85.80 Other specified disorders of bone density and structure, unspecified site; Z92.3 Personal history of irradiation; Z79.890 Hormone replacement therapy; R07.89 Other chest pain
CPT/HCPCS: 36415; 80053; 85025; 96372; 99213; J0897

== ENCOUNTER → 2025-09-02 15:28 | Outpatient (BNVA) | payer MEDICARE, OTHER, MEDICAID, SELFPAY | PROVIDERS: PCP Family Medicine; Visit Provider Internal Medicine | DX: I10 Essential (primary) hypertension (principal); R07.9 Chest pain, unspecified; E78.5 Hyperlipidemia, unspecified; I25.10 Atherosclerotic heart disease of native coronary artery without angina pectoris; Z87.891 Personal history of nicotine dependence | CPT/HCPCS: 99213 ==